=== PATIENT | male | born 1935 | race Caucasian/White ===

== ENCOUNTER 2018-12-14 15:13 | Inpatient (IN) | payer BC ==
--- NOTE | 2018-12-14 16:27 | PDOC ---
Attending Attestation - HPI HPI: 12/14/18 17:33 The patient is a 83 year old male with a significant PMH of HTN, CAD s/p stent, HLD, prostate problem (unknown) who presents to the emergency department sent in by his PCP for abnormal blood work. Patient was seen by PCP today for generalized weakness and was told to come to the ER for acute renal failure and hyperkalemia. Patient has not been eating and drinking at home and has lost 10lbs since August. Patient has not been taking his meds at home. The patient denies chest pain, shortness of breath, headache and dizziness. Denies fever, chills, nausea, vomit, diarrhea and constipation. Denies dysuria, frequency, urgency and hematuria. Allergies: NKA Past surgical history: None reported. Social history: No reported alcohol, drug or cigarette use. PCP: Dr. Herrmann - Physicial Exam PE: 12/14/18 17:33 ADULT PHYSICAL EXAM Constitutional: Awake and alert. (+) Disheveled. Cardiovascular: (+) Bradycardic. Regular rhythm. S1, S2 regular. Distal pulses are 2+ and symmetric. Pulmonary/Chest: No evidence of respiratory distress. Clear to auscultation bilaterally No wheezing, rales or rhonchi. Abdominal: Soft and non-distended. There is no tenderness. No rebound, guarding or rigidity. No organomegaly. No palpable masses. Good bowel sounds. Back: No CVA tenderness. Musculoskeletal: (+) Bilateral lower extremities with trace edema. No cyanosis. No clubbing. Full range of motion in all extremities. No calf tenderness. Radial/pedal pulses are intact and 2+ bilaterally Skin: Skin is warm and dry. No petechiae. No purpura. Neurological: Alert and oriented to person, place, and time. Cranial nerves II -XII are grossly intact. Psychiatric: Good eye contact. Normal interaction, affect and behavior. <Roxy Morales - Last Filed: 12/14/18 17:33> - Resident Resident Name: Cintia Dior - ED Attending Attestation I have performed the following: I have examined & evaluated the patient, The case was reviewed & discussed with the resident, I agree w/resident's findings & plan, Exceptions are as noted - Critical Care Time Total Critical Care Time: 45 Critical Care Statement: The care of this patient involved high complexity decision making to prevent further life threatening deterioration of the patient 's condition and/or to evaluate & treat vital organ system(s) failure or risk of failure. - Medical Decision Making 12/14/18 16:27 I, Dr. Clara Moreland, DO, attest that this document has been prepared under my direction and personally reviewed by me in its entirety. I further attest, that it accurately reflects all work, treatment, procedures and medical decision -making performed by me. 12/14/18 18:15 a/p: 83yo male presents with his daughter for eval of outpt labs that show hyperkalemia and renal failure -pt with decreased po intake and noncompliance with meds -pt arrives hypotensive, bradycardic -ekg shows signs of hyperkalemia -will treat empirically for hyperkalemia -will start ivf hydration -will place smith for eval of I/O -will need admission -PMD is Dr. Wynne 12/14/18 18:47 pt with K 6.5 will give another amp bicarb and calcium gluc bun 118, Cr 4.[address] Jackson who recommends repeat labs at 8p and bicarb gtt at 100cc/hr smith in place and draining urine 12/14/18 19:08 pt again hypotensive and gordy - another bicarb and clacium given 12/14/18 19:09 code status and potential dialysis were discussed with the patient and his daughter - both agree to dialysis if needed and state pt is a full code 12/14/18 20:48 case discussed with ICU resident case idscussed with Dr. Fagan who accepts pt to service 12/14/18 21:19 repeat labs at midnight and am labs <Clara Moreland - Last Filed: 12/14/18 21:20> Heart Score/ECG Review - ECG Intrepretation Comment:: 12/14/18 18:17 sinus gordy at 55, nl axis, peaked t waves, abnl ekg 12/14/18 19:40 repeat ekg: sinus at 72, nl axis, nl interval, t wave inversion avl, improved from prior <Clara Moreland - Last Filed: 12/14/18 21:20>
--- NOTE | 2018-12-14 17:22 | PDOC ---
History of Present Illness - General Chief Complaint: Revisit, Lab Variance Stated Complaint: ABD RESULTS Time Seen by Provider: 12/14/18 16:26 - History of Present Illness Initial Comments: Henrry Alcocer is an 83yo man with a PMH of HTN, CAD s/p stent, HLD, unknown prostate problem who presents with report of "high potassium and kidney failure " from his PMD. He has mild dementia, but he lives with his daughter and she is present at bedside. Per his daughter, she took him to the PMD because he hasn't been eating well for weeks to months. She states that he has lost about 10lb since a check-up in August. Due to the poor PO intake, his doctor recommended that he take only his "heart and prostate medications" but forgo the furosemide and potassium supplement. She reports that he has been drinking "a lot of soda" but eating very little. He had basic labs drawn at his PMD, and she received a call today that his potassium was very high and has kidney failure. He has no known history of kidney problems that she knows of. Mr Alcocer reports that he has simply not been hungry, but he denies abdominal pain, nausea, vomiting, fevers, chills, or change in bowel habits. He says that he has been urinating normally. Per his daughter, he has vomited several times that she knows about over the past several weeks, but this does not occur often. Past History - Past Medical History Allergies/Adverse Reactions: Allergies Allergy/AdvReac Type Severity Reaction Status Date / Time No Known Allergies Allergy Verified 05/17/15 11:01 Home Medications: Ambulatory Orders Cholecalciferol (Vitamin D3) [Vitamin D3] 1,000 unit PO DAILY 05/17/15 Metoprolol Tartrate [Lopressor -] 25 mg PO BID 05/17/15 Quinapril HCl [Accupril -] 20 mg PO DAILY 05/17/15 Simvastatin 10 mg PO DAILY 05/17/15 Terazosin HCl 5 mg PO DAILY 05/17/15 Furosemide [Lasix -] 20 mg PO DAILY 12/14/18 Potassium Bicarbonate/Cit AC [Potassium 25 Meq Tablet Eff] 25 meq PO DAILY 12/14 Cardiac Disorders: Yes (STENT PLACEMENT) Disorders: Yes (Bladder stones) HTN: Yes - Surgical History Cardiac Surgery: Yes (STENT PLACEMENT) - Family Disease History Family Disease History: Heart Disease: Father, Brother - Suicide/Smoking/Psychosocial Hx Smoking Status: No Smoking History: Never smoked Have you smoked in the past 12 months: No Number of Cigarettes Smoked Daily: 0 Information on smoking cessation initiated: No Hx Alcohol Use: No Drug/Substance Use Hx: No Substance Use Type: Alcohol Hx Substance Use Treatment: No Review of Systems - Review of Systems Comments:: Note: patient denies all symptoms but has dementia. Positive ROS items are per his adult daughter, with whom he lives. General: No fevers, no chills, +poor appetite, +weight loss, no malaise HEENT: No changes in vision, no changes in hearing, no congestion, no sore throat CV: No chest pain, no palpitations, no LE edema Pulm: No SOB, no cough, no wheezing GI: +occasional vomiting. No (known) change in bowel habits, no melena : No frequency, no urgency, no dysuria Musc: No back pain, no joint swelling, no recent injury Skin: No rash, no lesions, no erythema Endo: No excessive thirst, no heat/cold intolerance Heme: No unusual bruising or bleeding, no swollen glands Neuro: No syncope, no numbness/tingling, no focal weakness. +dementia Vasc: No claudication Psych: No recent change in mood, no SI or HI *Physical Exam - Vital Signs Last Vital Signs Temp Pulse Resp BP Pulse Ox 97.3 F L 73 20 89/52 L 98 12/14/18 15:21 12/14/18 15:21 12/14/18 15:21 12/14/18 15:21 12/14/18 15:21 - Physical Exam Comments: General: Comfortable, no acute distress, somewhat unkempt with dirty clothing HEENT: PERRL, EOMI, MMM, voice normal, normal neck ROM, no LAD Cards: RRR, no murmur appreciated Pulm: Comfortable on room air, clear to auscultation bilaterally Abd: Soft, nontender, nondistended : No CVA tenderness Ext: Atraumatic. 1+ nonpitting b/l swelling. Strength equal bilaterally. Vasc: Extremities WWP. Integ: Normal color, no rashes or lesions. +onychomycosis on b/l feet, untrimmed nails Neuro: Alert, responsive, CN grossly intact, normal speech, motor/sensory grossly intact and symmetric Psych: Mood appropriate to situation Moderate Sedation - Procedure Monitoring Vital Signs: Procedure Monitoring Vital Signs Temperature 97.3 F L 12/14/18 15:21 Pulse Rate 73 12/14/18 15:21 Respiratory Rate 20 12/14/18 15:21 Blood Pressure 89/52 L 12/14/18 15:21 O2 Sat by Pulse Oximetry (%) 98 12/14/18 15:21 ED Treatment Course - LABORATORY CBC & Chemistry Diagram: 12/14/18 16:50 12/14/18 20:00 Medical Decision Making - Medical Decision Making 12/14/18 17:13 Henrry Alcocer is an 83yo man with a PMH of HTN, CAD s/p stent, HLD, prostate problem (unknown) who was sent to the ED by his PMD for kidney failure and hyperkalemia. Per his daughter, he has not been eating well for weeks and has lost 10lb since August. She states that he went to his PMD for blood tests recently, and they were called stating that his creatinine and potassium were high. - Medication list includes potassium supplement and furosemide; unclear whether he has taking either - Noted to be hypotensive and bradycardic on arrival. Could be secondary to meds (metoprolol, ACEI, furosemide) and poor PO intake or secondary to other medical cause - EKG completed; shows peaked t-waves - 2 PIV's placed by me and Dr Moreland. 20g on b/l forearms. Labs drawn and sent - CBC, chemistry, lactate, VBG, coags, TSH, UA 12/14/18 18:15 - VBG with pH 7.22, bicarb 10.7, CO2 27.4 - presumed due to kidney failure - Calcium gluconate, bicarb, insulin, dextrose given for hyperkalemia based on EKG changes. Immediate improvement in BP and HR to SBP 150, HR in 70's - Smith placed with no urine returned. Bedside US with good visualization of L kidney w/o abnormalities. Poorly visualized R kidney without obvious hydro. Bladder with smith balloon visualized in place. Approx 300cc urine in bladder. Smith flushed with immediate output of urine. 12/14/18 19:14 - Chemistry with potassium 6.5, BUN 118, Cr 4.6 - Dr Jackson contacted, spoke to Dr Moreland. Recommending bicarb drip, repeat labs at 8pm (4hrs after initial). Dispo depending on repeat labs, floor v ICU - BP decreased to 74/43. Repeat doses of Ca gluconate and bicarb with improvement to 117/66 - Discussed DNR status and possible dialysis while daughter was present in the ED. Mr Alcocer wishes to be full code and verbally consents to possible need for dialysis. Will contact daughter via phone if official consent is needed. 12/14/18 19:48 - BP decreased again to 74/42, HR 58. Calcium gluconate given for a 3rd time. Immediate increase to BP 89/43. HR still in high 50's 12/14/18 20:52 - ICU called, spoke to Dr Moreland. Will come to evaluate, most likely admit to ICU - Labs drawn and sent. Repeat VBG with slight improvement, pH 7.29 and bicarb 14 - UA unremarkable 12/14/18 21:14 - Potassium decreased to 5.1 after medical management. Cr 4.1. BUN pending - Glucose 50. Giving dextrose - Spoke to medicine team (Dr Cancino). Will admit, agree with ICU - Dr Jackson by Dr Moreland. Recommending q6hr labs (midnight and 6). Updated ICU team by phone. Discussed with Dr Moreland. Cintia Dior PGy1 *DC/Admit/Observation/Transfer Diagnosis at time of Disposition: Hyperkalemia, Acute kidney failure, Hypotension, Bradycardia - Discharge Dispostion Decision to Admit order: Yes - Referrals Referrals: Vu Herrmann MD [Primary Care Provider] - - Patient Instructions - Post Discharge Activity
[2018-12-14 17:24] LABS: VENOUS PC02 27.4 mmHg (38-52)
[2018-12-14 17:25] LABS: EOS % 3.6 % (0-4.5); HEMATOCRIT 27.9 % (35.4-49); HEMOGLOBIN 9.6 GM/dL (11.7-16.9); LYMPH % 17.1 % (8-40); MCH 32.9 pg (25.7-33.7); MCHC 34.5 g/dl (32.0-35.9); MEAN CELL VOLUME 95.3 fl (80-96); MEAN PLT VOLUME 9.9 fl (7.5-11.1); NEUT % 69.3 % (42.8-82.8); PLATELET COUNT 119 K/MM3 (134-434); RBC 2.92 M/mm3 (4.00-5.60); RDW 14.8 % (11.9-15.9); WHITE BLOOD COUNT 4.6 K/mm3 (4.0-10.0)
[2018-12-14 17:26] LABS: VENOUS PH 7.22 (7.32-7.42); VENOUS PO2 89.8 mmHg (28-48)
[2018-12-14] MEDS ORDERED: DEXTROSE 50%-WATER - 25 GM/50 ML VIAL IVPUSH ONE ×2 (17:30→21:37)
[2018-12-14] MEDS ORDERED: SODIUM BICARBONATE 8.4% 50 MEQ/50 ML DISP.SYRIN IVPUSH ONE ×3 (17:30→20:28)
[2018-12-14] MEDS ORDERED: SODIUM CHLORIDE 0.9% 1000 ML INFUS.BAG IV ONE ×3 (17:30→21:18)
[2018-12-14] MEDS ORDERED: CALCIUM GLUCONATE 10% - 1,000 MG/10 ML VIAL IVPUSH ONE ×3 (17:30→18:54)
[2018-12-14] MEDS ORDERED: INSULIN REGULAR HUMAN 100 UNITS/ML *VIAL IVPUSH ONE (17:30)
[2018-12-14] MEDS ORDERED: CALCIUM GLUCONATE 10% - 1,000 MG/10 ML VIAL ONE ×3 (17:32→18:54)
[2018-12-14] MEDS ORDERED: SODIUM BICARBONATE 8.4% - 50 ML ONE ×2 (17:35→18:47)
[2018-12-14] MEDS ORDERED: DEXTROSE 50%-WATER 25 GM/50 ML DISP.SYRIN ONE ×2 (17:35→21:16)
[2018-12-14] MEDS ORDERED: INSULIN REGULAR HUMAN 100 UNITS/ML *VIAL ONE (17:36)
[2018-12-14 17:43] LABS: INR 0.99 (0.83-1.09); PROTHROMBIN TIME (PATIENT) 11.7 SEC (9.7-13.0)
[2018-12-14 17:45] LABS: ACTIVATED PTT 26.5 SECONDS (25.2-36.5)
[2018-12-14 18:19] LABS: ALBUMIN 3.6 g/dl (3.4-5.0); ALK PHOS 70 U/L (45-117); ANION GAP 7 MMOL/L (8-16); BILIRUBIN,TOTAL 0.4 mg/dL (0.2-1); CALCIUM 8.9 mg/dL (8.5-10.1); CHLORIDE 118 mmol/L (98-107); CO2 14 mmol/L (21-32); CREATININE 4.6 mg/dL (0.55-1.3); GLUCOSE,RANDOM 94 mg/dL (74-106); MAGNESIUM 2.1 mg/dL (1.8-2.4); SGOT/AST 14 U/L (15-37); SGPT/ALT 22 U/L (13-61); SODIUM 139 mmol/L (136-145); TOT PROT 6.5 g/dl (6.4-8.2)
[2018-12-14 18:31] LABS: BLOOD UREA NITROGEN 118 mg/dL (7-18); POTASSIUM 6.5 mmol/L (3.5-5.1)
[2018-12-14] MEDS ORDERED: SODIUM POLYSTYRENE SULFONATE 15 GM/60 ML BOTTLE PO ONE (18:39)
[2018-12-14] MEDS ORDERED: DEXTROSE 5%-WATER - 1,000 ML with SODIUM BICARBONATE 8.4% - 150 MEQ IV SCH ×2 (18:45)
[2018-12-14] MEDS ORDERED: SODIUM BICARBONATE 8.4% - 150 MEQ in DEXTROSE 5%-WATER - 1,000 ML IV SCH (18:48)
[2018-12-14 19:30] LABS: URINE APPEARANCE SLCLOUDY; URINE BILIRUBIN NEGATIVE (<2.0 mg/dL); URINE COLOR LTYELLOW; URINE GLUCOSE (UA) NEGATIVE (NEGATIVE); URINE KETONE NEGATIVE (NEGATIVE); URINE LEUK ESTERASE NEGATIVE (NEGATIVE); URINE NITRITE NEGATIVE (NEGATIVE); URINE PROTEIN NEGATIVE (NEGATIVE); URINE UROBILINOGEN NEGATIVE mg/dL (0.2-1.0)
[2018-12-14 20:41] LABS: VENOUS PC02 30.4 mmHg (38-52); VENOUS PH 7.29 (7.32-7.42); VENOUS PO2 38.6 mmHg (28-48)
[2018-12-14 21:10] LABS: ALK PHOS 58 U/L (45-117); ANION GAP 7 MMOL/L (8-16); BILIRUBIN,TOTAL 0.4 mg/dL (0.2-1); CHLORIDE 120 mmol/L (98-107); CO2 17 mmol/L (21-32); CREATININE 4.1 mg/dL (0.55-1.3); GLUCOSE,RANDOM 57 mg/dL (74-106); POTASSIUM 5.1 mmol/L (3.5-5.1); SGOT/AST 12 U/L (15-37); SGPT/ALT 17 U/L (13-61); SODIUM 144 mmol/L (136-145); TOT PROT 5.3 g/dl (6.4-8.2)
[2018-12-14] MEDS ORDERED: DEXTROSE 50%-WATER - 25 GM/50 ML VIAL ONE (21:16)
[2018-12-14 22:28] LABS: BLOOD UREA NITROGEN 107 mg/dL (7-18)
--- NOTE | 2018-12-14 23:42 | CONSULT ---
Consult Consult Specialty:: ICU Referred by:: Barby Reason for Consultation:: hyperkalemia, Hypotension - History of Present Illness Chief Complaint: hyperkalemia History of Present Illness: history obtained from daughter and patient. 83 yr old man with hx of dementia, renal insufficiency, BPH, brought in by daughter after outpatient labs showed hyperkalemia and worsening renal insuffiency. as per daughter, pt has been sleeping more than usual with poor po intake since middle november that has progressively worsened this week. She had an appointment with Dr. Herrmann to c/o vomiting several episodes this week. She stopped the "water pill" and potassium supplementation daily, and started to give it to him only on the days he ate and showed improved appetite. She continued to give him his "heart, cholesterol and prostate" medications. he has a chronic nonproductive cough and has been sitting in the toilet for longer periods of time but she does not know if it's diarrhea or constipation. she denies any complaints of chest pain, palpiations, abdominal pain, lightheadedness, unsteady gait, sob, nausea. as per patient he was brought to the hospital due to his 1 episode of vomiting 3 days ago that consisted of food, currently c/o feeling cold. she has noticed a loss of 10lbs since august and that he drinks alot of soda. Pmhx: HTN, stents in the heart unknown when it was placed, no hx of LA/CVA Surghx: hernia repairs >10yrs ago Soc hx: smoked cigars quit >20yrs, denies ETOH and illicit drugs Allergies: no NKDA - History Source History Provided By: Patient, Family Member, Medical Record Limitations to Obtaining History: Dementia - Past Medical History LEGAL RECEPTIONIST: Yes: Dementia Cardio/Vascular: Yes: HTN, Hyperlipdemia Renal/: Yes: Renal Inusuff, Hematuria, Renal Calculi, UTI - Past Surgical History Past Surgical History: Yes: Hernia Repair - Alcohol/Substance Use Hx Alcohol Use: No - Smoking History Smoking history: Never smoked Have you smoked in the past 12 months: No Aproximately how many cigarettes per day: 0 - Social History 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 Home Medications - Allergies Allergies/Adverse Reactions: Allergies Allergy/AdvReac Type Severity Reaction Status Date / Time No Known Allergies Allergy Verified 05/17/15 11:01 - Home Medications Home Medications: Ambulatory Orders Cholecalciferol (Vitamin D3) [Vitamin D3] 1,000 unit PO DAILY 05/17/15 Metoprolol Tartrate [Lopressor -] 25 mg PO BID 05/17/15 Quinapril HCl [Accupril -] 20 mg PO DAILY 05/17/15 Simvastatin 10 mg PO DAILY 05/17/15 Terazosin HCl 5 mg PO DAILY 05/17/15 Furosemide [Lasix -] 20 mg PO DAILY 12/14/18 Potassium Bicarbonate/Cit AC [Potassium 25 Meq Tablet Eff] 25 meq PO DAILY 12/14 Family Disease History - Family Disease History Family Disease History: Other: Brother ( but pt does not know the cause) Review of Systems Findings/Remarks: as per daughter and patient - Review of Systems Constitutional: reports: Chills, Loss of Appetite, Unintentional Wgt. Loss, Weakness. denies: Fever, Lethargy Gastrointestinal: reports: Vomiting. denies: Vomiting Blood Musculoskeletal: reports: No Symptoms Integumentary: reports: No Symptoms Physical Exam Vital Signs: Vital Signs Temperature 97.8 F 12/14/18 19:21 Pulse Rate 62 12/14/18 22:41 Respiratory Rate 18 12/14/18 22:41 Blood Pressure 102/49 L 12/14/18 22:41 O2 Sat by Pulse Oximetry (%) 95 12/14/18 22:41 Constitutional: Yes: Poor Hygeine, Thin Eyes: Yes: Conjunctiva Clear, EOM Intact, PERRL HENT: Yes: Atraumatic, Normocephalic. No: Pharyngeal Erythema, Rhinnorhea, Thrush Neck: Yes: Supple, Trachea Midline, Decreased ROM. No: Tenderness, Thyromegaly Cardiovascular: Yes: Regular Rate and Rhythm, Murmur Respiratory: Yes: Regular, CTA Bilaterally Gastrointestinal: Yes: Normal Bowel Sounds, Soft Edema: No Peripheral Pulses WNL: Yes Integumentary: Yes: WNL Neurological: Yes: Alert, Oriented (to person and place, president and date), Cran Nerves II-XII Intact ...Motor Strength: WNL Labs: CBC, BMP 12/14/18 16:50 12/14/18 20:00 Assessment/Plan 83 yr old man with HTN, CAD, BPH, renal insufficiency with weightloss and poor appetite brought in by family for abnormal outpatient labs found to have hyperkalemia and renal insufficiency being monitored in the ICU for bradycardia and hypotension s/p medical management of hyperkalemia and on bicarb drip. all likely due to poor po intake with vomiting and continuation of medications. Renal RADHA on CKD- consulted dr. contreras - repeat BMP q6hr to trend - bicarb drip - renal u/s without acute pathology CV - BP stable in the ICU, s/p 1 500cc bolus, responded well - hold anti-HTNive medications - HR improved in ICU, was gordy down to 38's in the ED - trop x1 negative Heme - microcytic anemia - anemia labs ordered VTE - heparin BID
--- NOTE | 2018-12-14 23:45 | HP ---
CHIEF COMPLAINT: Sent by [facility] for high potassium and renal failure PCP: Dr. Herrmann HISTORY OF PRESENT ILLNESS: The patient is an 83 yo m w/ PMH HTN, CAD s/p stent, HLD, dementia who was sent to the ED by his PMD because he had an elevated creatinine and potassium on his routine lab work. The patient's daughter took him to his PMD because he has not been eating as much over the past month as well as had a 10 lb weight loss over this past month. The patient's PMD instructed him to discontinue taking his "heart pills" because he was not eating or drinking. The patient's daughter is unsure of which one of his pills this was. The patient was then called by his PMD after his labs came back abnormal and instructed to come to the ED. Upon interview, the patient is A&Ox3, but unsure of why he is at the hospital and has no complaints. Per patient's daughter, this is his baseline mental status. Per ED staff, the patient was dirty, disheveled with soiled clothes and malodorous. ER course was notable for: (1) Potassium 6.5, BUN 18, cr. 4.6 (2) EKG w/ peaking of t waves (3) Recent Travel: none PAST MEDICAL HISTORY: see HPI PAST SURGICAL HISTORY: cardiac stenting Social History: Smoking: denies Alcohol: denies Drugs: denies Family History: Allergies No Known Allergies Allergy (Verified 05/17/15 11:01) HOME MEDICATIONS: Home Medications Medication Instructions Recorded Cholecalciferol (Vitamin D3) 1,000 unit PO DAILY 05/17/15 [Vitamin D3] Metoprolol Tartrate [Lopressor -] 25 mg PO BID 05/17/15 Quinapril HCl [Accupril -] 20 mg PO DAILY 05/17/15 Simvastatin 10 mg PO DAILY 05/17/15 Terazosin HCl 5 mg PO DAILY 05/17/15 Furosemide [Lasix -] 20 mg PO DAILY 12/14/18 Potassium Bicarbonate/Cit AC 25 meq PO DAILY 12/14/18 [Potassium 25 Meq Tablet Eff] REVIEW OF SYSTEMS CONSTITUTIONAL: Absent: fever, chills, diaphoresis, generalized weakness, malaise, loss of appetite, weight change HEENT: Absent: rhinorrhea, nasal congestion, throat pain, throat swelling, difficulty swallowing, mouth swelling, ear pain, eye pain, visual changes CARDIOVASCULAR: Absent: chest pain, syncope, palpitations, irregular heart rate, lightheadedness , peripheral edema RESPIRATORY: Absent: cough, shortness of breath, dyspnea with exertion, orthopnea, wheezing, stridor, hemoptysis GASTROINTESTINAL: Absent: abdominal pain, abdominal distension, nausea, vomiting, diarrhea, constipation, melena, hematochezia GENITOURINARY: Absent: dysuria, frequency, urgency, hesitancy, hematuria, flank pain, genital pain MUSCULOSKELETAL: Absent: myalgia, arthralgia, joint swelling, back pain, neck pain SKIN: Absent: rash, itching, pallor HEMATOLOGIC/IMMUNOLOGIC: Absent: easy bleeding, easy bruising, lymphadenopathy, frequent infections ENDOCRINE: Absent: unexplained weight gain, unexplained weight loss, heat intolerance, cold intolerance NEUROLOGIC: Absent: headache, focal weakness or paresthesias, dizziness, unsteady gait, seizure, mental status changes, bladder or bowel incontinence PSYCHIATRIC: Absent: anxiety, depression, suicidal or homicidal ideation, hallucinations. PHYSICAL EXAMINATION Vital Signs - 24 hr 12/14/18 12/14/18 12/14/18 15:21 18:01 19:21 Temperature 97.3 F L 98.0 F 97.8 F Pulse Rate 73 Pulse Rate [ 71 72 Left Apical] Respiratory 20 16 20 Rate Blood Pressure 89/52 L Blood Pressure 151/74 117/66 [Left Arm] O2 Sat by Pulse 98 100 97 Oximetry (%) 12/14/18 12/14/18 19:40 22:41 Temperature Pulse Rate Pulse Rate [ 95 H 62 Left Apical] Respiratory 20 18 Rate Blood Pressure Blood Pressure 102/56 L 102/49 L [Left Arm] O2 Sat by Pulse 97 95 Oximetry (%) GENERAL: Awake, alert, and fully oriented, in no acute distress. HEAD: Normal with no signs of trauma. EYES: Pupils equal, round and reactive to light, extraocular movements intact, sclera anicteric, conjunctiva clear. No lid lag. NECK: Normal range of motion, supple without lymphadenopathy, JVD, or masses. LUNGS: Breath sounds equal, clear to auscultation bilaterally. No wheezes, and no crackles. No accessory muscle use. HEART: Regular rate and rhythm, normal S1 and S2 without murmur, rub or gallop. ABDOMEN: Soft, nontender, not distended, normoactive bowel sounds, no guarding, no rebound, no masses. No hepatomegaly or splenomegaly. LOWER EXTREMITIES: 2+ pulses, warm, well-perfused. No calf tenderness. No peripheral edema. NEUROLOGICAL: Cranial nerves II-X intact. Normal speech. SKIN: Warm, dry, normal turgor, no rashes or lesions noted, normal capillary refill. Laboratory Results - last 24 hr 12/14/18 12/14/18 12/14/18 14:45 16:45 16:50 WBC 4.6 RBC 2.92 L Hgb 9.6 L Hct 27.9 L D MCV 95.3 MCH 32.9 MCHC 34.5 RDW 14.8 Plt Count 119 L MPV 9.9 Absolute Neuts (auto) 3.2 Neutrophils % 69.3 Lymphocytes % 17.1 Monocytes % 9.0 Eosinophils % 3.6 Basophils % 1.0 Nucleated RBC % 0 PT with INR 11.70 INR 0.99 PTT (Actin FS) 26.5 VBG pH 7.22 L* POC VBG pCO2 27.4 L POC VBG pO2 89.8 H Mixed VBG HCO3 10.7 L* Sodium Potassium Chloride Carbon Dioxide Anion Gap BUN Creatinine Creat Clearance w eGFR POC Glucometer Random Glucose Lactic Acid Calcium Magnesium Total Bilirubin AST ALT Alkaline Phosphatase Creatine Kinase Creatine Kinase Index CK-MB (CK-2) Troponin I Total Protein Albumin TSH Urine Color Urine Appearance Urine pH Ur Specific [place] Urine Protein Urine Glucose (UA) Urine Ketones Urine Blood Urine Nitrite Urine Bilirubin Urine Urobilinogen Ur Leukocyte Esterase 12/14/18 12/14/18 12/14/18 16:50 16:50 17:23 WBC RBC Hgb Hct MCV MCH MCHC RDW Plt Count MPV Absolute Neuts (auto) Neutrophils % Lymphocytes % Monocytes % Eosinophils % Basophils % Nucleated RBC % PT with INR INR PTT (Actin FS) VBG pH POC VBG pCO2 POC VBG pO2 Mixed VBG HCO3 Sodium 139 Potassium 6.5 H* Chloride 118 H Carbon Dioxide 14 L Anion Gap 7 L BUN 118 H* Creatinine 4.6 H Creat Clearance w eGFR 12.23 POC Glucometer Random Glucose 94 Lactic Acid 0.9 Calcium 8.9 Magnesium 2.1 Total Bilirubin 0.4 AST 14 L ALT 22 Alkaline Phosphatase 70 Creatine Kinase 160 Creatine Kinase Index 3.4 CK-MB (CK-2) 5.44 H Troponin I 0.02 Total Protein 6.5 Albumin 3.6 TSH 1.07 Urine Color Urine Appearance Urine pH Ur Specific [place] Urine Protein Urine Glucose (UA) Urine Ketones Urine Blood Urine Nitrite Urine Bilirubin Urine Urobilinogen Ur Leukocyte Esterase 12/14/18 12/14/18 12/14/18 17:39 18:56 20:00 WBC RBC Hgb Hct MCV MCH MCHC RDW Plt Count MPV Absolute Neuts (auto) Neutrophils % Lymphocytes % Monocytes % Eosinophils % Basophils % Nucleated RBC % PT with INR INR PTT (Actin FS) VBG pH 7.29 L POC VBG pCO2 30.4 L POC VBG pO2 38.6 D Mixed VBG HCO3 14.2 L* Sodium Potassium Chloride Carbon Dioxide Anion Gap BUN Creatinine Creat Clearance w eGFR POC Glucometer 93 Random Glucose Lactic Acid Calcium Magnesium Total Bilirubin AST ALT Alkaline Phosphatase Creatine Kinase Creatine Kinase Index CK-MB (CK-2) Troponin I Total Protein Albumin TSH Urine Color Ltyellow Urine Appearance Slcloudy Urine pH 5.0 Ur Specific [place] 1.011 Urine Protein Negative Urine Glucose (UA) Negative Urine Ketones Negative Urine Blood Negative Urine Nitrite Negative Urine Bilirubin Negative Urine Urobilinogen Negative Ur Leukocyte Esterase Negative 12/14/18 20:00 WBC RBC Hgb Hct MCV MCH MCHC RDW Plt Count MPV Absolute Neuts (auto) Neutrophils % Lymphocytes % Monocytes % Eosinophils % Basophils % Nucleated RBC % PT with INR INR PTT (Actin FS) VBG pH POC VBG pCO2 POC VBG pO2 Mixed VBG HCO3 Sodium 144 Potassium 5.1 Chloride 120 H Carbon Dioxide 17 L Anion Gap 7 L BUN 107 H* Creatinine 4.1 H Creat Clearance w eGFR 13.97 POC Glucometer Random Glucose 57 L Lactic Acid Calcium 9.0 Magnesium Total Bilirubin 0.4 AST 12 L ALT 17 Alkaline Phosphatase 58 Creatine Kinase Creatine Kinase Index CK-MB (CK-2) Troponin I Total Protein 5.3 L Albumin 3.0 L TSH Urine Color Urine Appearance Urine pH Ur Specific [place] Urine Protein Urine Glucose (UA) Urine Ketones Urine Blood Urine Nitrite Urine Bilirubin Urine Urobilinogen Ur Leukocyte Esterase ASSESSMENT/PLAN: The patient is an 83 yo m w/ PMH HTN, HLD, CAD s/p stenting who was sent ot he ed by PMD found to have acute renal failure and symptomatic hyperkalemia. #Hyperkalemia and ARF likely 2/2 combination of medications confusion and decreased PO intake -patient likely taking potassium supplements and ACEI without being diuresed and without eating/drinking -s/p calcium gluconate, 10 units insulin IV and D50 x2 in ED -RPT K 5.1 -EKG chages seen on admission -Nephrology called by ED staff (Dr. Jackson); no urgent dialysis indicated. Recommends bmp w/ mag and phos Q6h overnight. -holding nephrotoxic medications #inability to ambulate -patient has difficulty ambulating, has been using a wheelchair recently -PT consult in AM #Patient appeared soiled, dirty on arrival per ED staff -patient has no decubiti, making abuse less likely -social work consult -patient may require higher level of care on discharge #HTN, CAD, HLD -holding home medications overnight #Prophy -heparin SQ 5k units TID #Dispo -admit ICU -home medications verified by ED staff with patient's daughter (pharmacy receipts reviewed) Visit type - Emergency Visit Emergency Visit: Yes ED Registration Date: 12/14/18 Care time: The patient presented to the Emergency Department on the above date and was hospitalized for further evaluation of their emergent condition. - New Patient This patient is new to me today: Yes Date on this admission: 12/15/18 - Critical Care Critical Care patient: No
[2018-12-15 01:19] LABS: ALBUMIN 2.6 g/dl (3.4-5.0); ALK PHOS 58 U/L (45-117); ANION GAP 7 MMOL/L (8-16); BILIRUBIN,TOTAL 0.4 mg/dL (0.2-1); BLOOD UREA NITROGEN 100 mg/dL (7-18); CALCIUM 8.3 mg/dL (8.5-10.1); CHLORIDE 118 mmol/L (98-107); CO2 18 mmol/L (21-32); CREATININE 3.8 mg/dL (0.55-1.3); GLUCOSE,RANDOM 102 mg/dL (74-106); MAGNESIUM 1.8 mg/dL (1.8-2.4); PHOSPHOROUS 3.8 mg/dL (2.5-4.9); POTASSIUM 4.9 mmol/L (3.5-5.1); SGOT/AST 13 U/L (15-37); SGPT/ALT 19 U/L (13-61); SODIUM 143 mmol/L (136-145); TOT PROT 5.1 g/dl (6.4-8.2)
--- NOTE | 2018-12-15 01:33 | PN ---
Teaching Attending Note Name of Resident: Mik Cancino ATTENDING PHYSICIAN STATEMENT I saw and evaluated the patient. I reviewed the resident's note and discussed the case with the resident. I agree with the resident's findings and plan as documented. SUBJECTIVE: Seen and examined; please see resident note for further historical documentation. Briefly, this is a 83 y/o male with a PMH significant for history of CAD s/p PCI (unknown date), HTN, Dementia, former Smoker, HLD, HLD. He presents with his family for concerns of severe issues with his outpatient labs (showed hyperkalemia, RADHA). He actually denies any pain or complaints when I see him; his family was unfortunately gone at that point. He is a poor historian but was AAOx3. He has had very poor PO intake for the past month or so and has reported ~10lb weight loss since july. He is on multiple nephrotoxic medications; family aparently told ER/resident team that he has not been on the Lasix per orders from his PCP but that he has been taking all the other ones. He was found to be acidotic and have marked hyperkalemia with EKG changes; he was given insulin/D50, multiple pushes of bicarb and calcium, etc. ( as documented in ER notes) and was eventually found to have improved K in the 5- range with slightly improved pH. Nephrology was contacted by the ER and stated that he would likely not need STAT HD due to this but recommended monitoring him very closely overnight. He will be brought to the ICU due to his fluctuating hypotension as well as his flucturating HR (became gordy and hypotensive in the ER several times). Appreciate subspecialty expert opinion in the management of this patient. 10 sys ROS done and negative aside from HPI PMH and PSH reviewed Medication list pending reconciliation OBJECTIVE: VS, labs, imaging reviewed NAD, AAO but confused on some personal details, resting in bed RRR s1/2 no mgr Lungs CTAB, w/ sym exp NT ND +BS CN2-12 wnl, no fnd Normal mood, appropriate behavior, confusion evident with slow responses and blunted affect Labs show initial K of .5 that improved to 4.9; Cr 4.6 and now 3.8. CO2 was 14 that improved to 18, and his albumin and total protein are both low. UA is negative for infection, VBG showed a metabolic acidosis that did improve, and finally anemia and thrombocytopenia are noted on CBC (Hb 9.6, plt 119) Renal US shows no hydronephrosis without any definite sonographic abnormality with the kidneys. Did incidentally show prostate enlargement. ASSESSMENT AND PLAN: Patient presents with acute renal failure and hyperkalemia; renal function and elytes improving. He was transiently bradycardic and hypotensive so he was admitted to the ICU for further workup and monitoring. 1) Acute Renal Failure -Nephrology is aware of the patient; appreciate their expert management and will defer further workup and treatment to their service. -Likely prompted by poor PO and nephrotoxic medications, etc. Consider an element of ATN as a possibility given the hypotension observed in the ER. Followup FeUrea. MARGARITA noted (patient has a h/o nephrolithiasis but there was no obstruction noted presently; Dr. Braun DCS from 2014 mentions chronic obstruction contributing to renal disease 4 years ago). -Monitor BMP, hydrating with NS. Monitor UOP. 2) Hyperkalemia -Resolved back to normal range with treatment; continue with hydration with NS and trending BMP. EKG/tele noted. Renal diet. 3) Metabolic Acidosis -Improving; due to the underlying renal failure. 4) Sinus Bradycardia/Hypotension, resolved -Resolved with treatment of the hypokalemia. Less likely due to BB. Monitor in ICU overnight 5) Normocytic Anemia -New; baseline of 12 in 2015. Will trend CBC; compare to OP records. If this is new it should be worked up. 6) Thrombocytopenia -Chronic; was low in 2015 with steady decline of his platelet count. Unclear etiology. Can check Hep C Ab and HIV; consider other etiologies like RASHID, etc. 7) Enlarged prostate -Noted on imaging; followup OP with PCP 8) CAD s/p stenting -Nonacute; followup as OP. 9) HTN -Holding nephrotoxic agents and monitoring. Avoid further hypotension which could precipitate ATN. If >160 can use PRN hydralazine 10) Dementia -He seems slightly confused but is AAOx3 in the unit but slow to respond. Could be baseline vs. uremia. Tx underlying RADHA. Discuss his mentation with the family tomorrow. Fall precautions. ER confirmed with family that he is to be kept full code 11) HLD -Resume statin in AM FENA -NS@100 -PRN replete -Renal diet, bedside swallow eval given potential uremia -As tolerated
[2018-12-15] MEDS ORDERED: SODIUM CHLORIDE 500 ML IV STA ×2 (01:45→22:17)
[2018-12-15 06:59] LABS: ALBUMIN 2.6 g/dl (3.4-5.0); ALK PHOS 57 U/L (45-117); ANION GAP 7 MMOL/L (8-16); BILIRUBIN,TOTAL 0.4 mg/dL (0.2-1); BLOOD UREA NITROGEN 92 mg/dL (7-18); CALCIUM 7.8 mg/dL (8.5-10.1); CHLORIDE 118 mmol/L (98-107); CO2 19 mmol/L (21-32); CREATININE 3.6 mg/dL (0.55-1.3); GLUCOSE,RANDOM 65 mg/dL (74-106); MAGNESIUM 1.7 mg/dL (1.8-2.4); PHOSPHOROUS 3.6 mg/dL (2.5-4.9); POTASSIUM 4.9 mmol/L (3.5-5.1); SGOT/AST 12 U/L (15-37); SGPT/ALT 16 U/L (13-61); SODIUM 144 mmol/L (136-145); TOT PROT 4.9 g/dl (6.4-8.2)
[2018-12-15 08:09] LABS: BASO % 0.8 % (0-2.0); EOS % 3.5 % (0-4.5); HEMATOCRIT 23.8 % (35.4-49); HEMOGLOBIN 8.2 GM/dL (11.7-16.9); LYMPH % 17.5 % (8-40); MCH 32.4 pg (25.7-33.7); MCHC 34.3 g/dl (32.0-35.9); MEAN CELL VOLUME 94.6 fl (80-96); MEAN PLT VOLUME 10.1 fl (7.5-11.1); MONO % 10.5 % (3.8-10.2); NEUT % 67.7 % (42.8-82.8); PLATELET COUNT 99 K/MM3 (134-434); RBC 2.52 M/mm3 (4.00-5.60); RDW 14.3 % (11.9-15.9); WHITE BLOOD COUNT 5.1 K/mm3 (4.0-10.0)
[2018-12-15] MEDS: SODIUM CHLORIDE 1,000 ML IV SCH (10:00)
[2018-12-15] MEDS: MUPIROCIN 2% TOPICAL OINTMENT FOR DECOLONIZATION NS SCH ×2 (11:08→21:32)
[2018-12-15] MEDS: HEPARIN NA (PORCINE) 5,000 UNITS/ML 1ML VIAL SQ SCH ×2 (11:11→21:31)
--- NOTE | 2018-12-15 12:21 | PN ---
Teaching Attending Note Name of Resident: Cathryn Bustamante ATTENDING PHYSICIAN STATEMENT I saw and evaluated the patient. I reviewed the resident's note and discussed the case with the resident. I agree with the resident's findings and plan as documented. SUBJECTIVE: Patient seen and examined in the ICU. Awake and alert. Denies CP ro SOB. Potassium now 4.9. Intake & Output 12/12/18 12/13/18 12/14/18 12/15/18 23:59 23:59 23:59 23:59 Intake Total 1157 Output Total 1000 Balance 157 Weight 132 lb 1 oz Last Vital Signs Temp Pulse Resp BP Pulse Ox 98.6 F 66 17 130/53 L 95 12/15/18 10:00 12/15/18 12:00 12/15/18 12:00 12/15/18 12:00 12/14/18 22:41 Active Medications Chlorhexidine Gluconate (Hibiclens For Decolonization -) 1 applic TP HS [facility] Heparin Sodium (Porcine) (Heparin -) 5,000 unit SQ BID [facility] Last Admin: 12/15/18 11:11 Dose: 5,000 unit Sodium Chloride (Normal Saline -) 1,000 mls @ 100 mls/hr IV ASDIR [facility] Last Admin: 12/15/18 10:00 Dose: 100 mls/hr Mupirocin (Bactroban Ointment (For Decolonization) -) 1 applic NS BID [facility] Stop: 12/20/18 09:59 Last Admin: 12/15/18 11:08 Dose: 1 applic Constitutional: Yes: Awake and alert, poor Hygeine, Thin Eyes: Yes: Conjunctiva Clear, EOM Intact, PERRL HENT: Yes: Atraumatic, Normocephalic. No: Pharyngeal Erythema, Rhinnorhea, Thrush Neck: Yes: Supple, Trachea Midline, Decreased ROM. No: Tenderness, Thyromegaly Cardiovascular: Yes: Regular Rate and Rhythm, Murmur Respiratory: Yes: Clear Gastrointestinal: Yes: Normal Bowel Sounds, Soft Edema: No Peripheral Pulses WNL: Yes Integumentary: Yes: WNL Neurological: Yes: Alert, Oriented, non-focal ...Motor Strength: WNL Labs: Laboratory Results - last 24 hr 12/14/18 12/14/18 12/14/18 14:45 16:45 16:50 WBC 4.6 RBC 2.92 L Hgb 9.6 L Hct 27.9 L D MCV 95.3 MCH 32.9 MCHC 34.5 RDW 14.8 Plt Count 119 L MPV 9.9 Absolute Neuts (auto) 3.2 Neutrophils % 69.3 Lymphocytes % 17.1 Monocytes % 9.0 Eosinophils % 3.6 Basophils % 1.0 Nucleated RBC % 0 PT with INR 11.70 INR 0.99 PTT (Actin FS) 26.5 VBG pH 7.22 L* POC VBG pCO2 27.4 L POC VBG pO2 89.8 H Mixed VBG HCO3 10.7 L* Sodium Potassium Chloride Carbon Dioxide Anion Gap BUN Creatinine Creat Clearance w eGFR POC Glucometer Random Glucose Lactic Acid Calcium Phosphorus Magnesium Total Bilirubin AST ALT Alkaline Phosphatase Creatine Kinase Creatine Kinase Index CK-MB (CK-2) Troponin I Total Protein Albumin TSH Urine Color Urine Appearance Urine pH Ur Specific [place] Urine Protein Urine Glucose (UA) Urine Ketones Urine Blood Urine Nitrite Urine Bilirubin Urine Urobilinogen Ur Leukocyte Esterase 12/14/18 12/14/18 12/14/18 16:50 16:50 17:23 WBC RBC Hgb Hct MCV MCH MCHC RDW Plt Count MPV Absolute Neuts (auto) Neutrophils % Lymphocytes % Monocytes % Eosinophils % Basophils % Nucleated RBC % PT with INR INR PTT (Actin FS) VBG pH POC VBG pCO2 POC VBG pO2 Mixed VBG HCO3 Sodium 139 Potassium 6.5 H* Chloride 118 H Carbon Dioxide 14 L Anion Gap 7 L BUN 118 H* Creatinine 4.6 H Creat Clearance w eGFR 12.23 POC Glucometer Random Glucose 94 Lactic Acid 0.9 Calcium 8.9 Phosphorus Magnesium 2.1 Total Bilirubin 0.4 AST 14 L ALT 22 Alkaline Phosphatase 70 Creatine Kinase 160 Creatine Kinase Index 3.4 CK-MB (CK-2) 5.44 H Troponin I 0.02 Total Protein 6.5 Albumin 3.6 TSH 1.07 Urine Color Urine Appearance Urine pH Ur Specific [place] Urine Protein Urine Glucose (UA) Urine Ketones Urine Blood Urine Nitrite Urine Bilirubin Urine Urobilinogen Ur Leukocyte Esterase 12/14/18 12/14/18 12/14/18 17:39 18:56 20:00 WBC RBC Hgb Hct MCV MCH MCHC RDW Plt Count MPV Absolute Neuts (auto) Neutrophils % Lymphocytes % Monocytes % Eosinophils % Basophils % Nucleated RBC % PT with INR INR PTT (Actin FS) VBG pH 7.29 L POC VBG pCO2 30.4 L POC VBG pO2 38.6 D Mixed VBG HCO3 14.2 L* Sodium Potassium Chloride Carbon Dioxide Anion Gap BUN Creatinine Creat Clearance w eGFR POC Glucometer 93 Random Glucose Lactic Acid Calcium Phosphorus Magnesium Total Bilirubin AST ALT Alkaline Phosphatase Creatine Kinase Creatine Kinase Index CK-MB (CK-2) Troponin I Total Protein Albumin TSH Urine Color Ltyellow Urine Appearance Slcloudy Urine pH 5.0 Ur Specific [place] 1.011 Urine Protein Negative Urine Glucose (UA) Negative Urine Ketones Negative Urine Blood Negative Urine Nitrite Negative Urine Bilirubin Negative Urine Urobilinogen Negative Ur Leukocyte Esterase Negative 12/14/18 12/15/18 12/15/18 20:00 00:05 05:20 WBC 5.1 RBC 2.52 L Hgb 8.2 L Hct 23.8 L MCV 94.6 MCH 32.4 MCHC 34.3 RDW 14.3 Plt Count 99 L MPV 10.1 Absolute Neuts (auto) 3.5 Neutrophils % 67.7 Lymphocytes % 17.5 Monocytes % 10.5 H Eosinophils % 3.5 Basophils % 0.8 Nucleated RBC % 0 PT with INR INR PTT (Actin FS) VBG pH POC VBG pCO2 POC VBG pO2 Mixed VBG HCO3 Sodium 144 143 Potassium 5.1 4.9 Chloride 120 H 118 H Carbon Dioxide 17 L 18 L Anion Gap 7 L 7 L BUN 107 H* 100 H Creatinine 4.1 H 3.8 H Creat Clearance w eGFR 13.97 15.25 POC Glucometer Random Glucose 57 L 102 Lactic Acid Calcium 9.0 8.3 L Phosphorus 3.8 Magnesium 1.8 Total Bilirubin 0.4 0.4 AST 12 L 13 L ALT 17 19 Alkaline Phosphatase 58 58 Creatine Kinase Creatine Kinase Index CK-MB (CK-2) Troponin I Total Protein 5.3 L 5.1 L Albumin 3.0 L 2.6 L TSH Urine Color Urine Appearance Urine pH Ur Specific [place] Urine Protein Urine Glucose (UA) Urine Ketones Urine Blood Urine Nitrite Urine Bilirubin Urine Urobilinogen Ur Leukocyte Esterase 12/15/18 12/15/18 05:30 05:47 WBC RBC Hgb Hct MCV MCH MCHC RDW Plt Count MPV Absolute Neuts (auto) Neutrophils % Lymphocytes % Monocytes % Eosinophils % Basophils % Nucleated RBC % PT with INR INR PTT (Actin FS) VBG pH POC VBG pCO2 POC VBG pO2 Mixed VBG HCO3 Sodium 144 Potassium 4.9 Chloride 118 H Carbon Dioxide 19 L Anion Gap 7 L BUN 92 H Creatinine 3.6 H Creat Clearance w eGFR 16.23 POC Glucometer 64 Random Glucose 65 L Lactic Acid Calcium 7.8 L Phosphorus 3.6 Magnesium 1.7 L Total Bilirubin 0.4 AST 12 L ALT 16 Alkaline Phosphatase 57 Creatine Kinase Creatine Kinase Index CK-MB (CK-2) Troponin I 0.06 H Total Protein 4.9 L Albumin 2.6 L TSH Urine Color Urine Appearance Urine pH Ur Specific [place] Urine Protein Urine Glucose (UA) Urine Ketones Urine Blood Urine Nitrite Urine Bilirubin Urine Urobilinogen Ur Leukocyte Esterase Assessment/Plan Severe Hyperkalemia with resultant EKG changes HTN CAD BPH Renal insufficiency IVF Renal follow up Hold ROYA PO as tolerated O2 as needed Cardiac Telemetry monitoring Dr Orozco
--- NOTE | 2018-12-15 13:19 | EKG ---
Test Reason : Blood Pressure : / mmHG Vent. Rate : 072 BPM Atrial Rate : 072 BPM P-R Int : 150 ms QRS Dur : 086 ms QT Int : 386 ms P-R-T Axes : 049 -03 058 degrees QTc Int : 422 ms NORMAL SINUS RHYTHM NORMAL ECG WHEN COMPARED WITH ECG OF 17-MAY-2015 13:11, NONSPECIFIC T WAVE ABNORMALITY NOW EVIDENT IN LATERAL LEADS Confirmed by ZAYNAB DAVIS, KESHA ([id number]) on 12/15/2018 1:18:48 PM Referred By: Confirmed By:KESHA WORTHY MD
--- NOTE | 2018-12-15 13:21 | EKG ---
Test Reason : Blood Pressure : / mmHG Vent. Rate : 055 BPM Atrial Rate : 055 BPM P-R Int : 138 ms QRS Dur : 078 ms QT Int : 402 ms P-R-T Axes : 034 -07 039 degrees QTc Int : 384 ms POOR DATA QUALITY, INTERPRETATION MAY BE ADVERSELY AFFECTED SINUS BRADYCARDIA JUNCTIONAL ST DEPRESSION, PROBABLY NORMAL BORDERLINE ECG WHEN COMPARED WITH ECG OF 17-MAY-2015 13:11, QT HAS SHORTENED Confirmed by ZAYNAB DAVIS, KESHA ([id number]) on 12/15/2018 1:21:16 PM Referred By: Confirmed By:KESHA WORTHY MD
--- NOTE | 2018-12-15 13:23 | ECHO ---
Name: ELAINE KOWALSKI Exam:Adult Echocardiogram Study Date: 12/15/2018 11:34 AM Age: 83 yrs Reason For Study: LV Function Height: 61 in Weight: 125 lb BSA: 1.5 m2 MMode/2D Measurements & Calculations IVSd: 1.1 cm Ao root diam: 3.4 cm LVIDd: 3.5 cm LA dimension: 3.0 cm LVIDs: 2.2 cm LVPWd: 1.1 cm EDV(Teich): 50.8 ml LAV (MOD-bp): 49.7 ml ESV(Teich): 16.2 ml Doppler Measurements & Calculations MV E max claus: 96.0 cm/sec MV A max claus: 96.0 cm/sec MV dec slope: 444.9 cm/sec2 MV E/A: 1.00 AI P1/2t: 453.9 msec AI max claus: 406.0 cm/sec AI max P.9 mmHg AI dec slope: 261.9 cm/sec2 MR max claus: 459.4 cm/sec TR max claus: 290.5 cm/sec MR max P.0 mmHg TR max P.6 mmHg Med Peak E' Claus: 8.8 cm/sec PI Vmax: 196.8 cm/sec Med E/e': 10.9 Lat Peak E' Claus: 8.7 cm/sec Lat E/e': 11.0 Left Ventricle Left ventricular systolic function is grossly normal. Ejection Fraction = 50-55%. Right Ventricle The right ventricle is normal in size and function. Atria The left atrium is mildly dilated. Mitral Valve There is mild mitral annular calcification. There is mild mitral valve thickening. There is no mitral valve stenosis. There is mild mitral regurgitation. Tricuspid Valve The tricuspid valve is normal in structure and function. There is mild to moderate tricuspid regurgit ation. Right ventricular systolic pressure is elevated at 40-50mmHg. Aortic Valve There is mild aortic sclerosis.;. No hemodynamically significant valvular aortic stenosis. Mild aorti c regurgitation. Pulmonic Valve The pulmonic valve is not well seen, but is grossly normal. There is no pulmonic valvular stenosis. M ild pulmonic valvular regurgitation. Great Vessels The aortic root is normal size. Pericardium/Pleura There is no pericardial effusion. Interpretation Summary Left ventricular systolic function is grossly normal. Ejection Fraction = 50-55%. The left atrium is mildly dilated. There is mild mitral annular calcification. There is mild mitral valve thickening. There is mild mitral regurgitation. There is mild to moderate tricuspid regurgitation. Right ventricular systolic pressure is elevated at 40-50mmHg. There is mild aortic sclerosis.; Mild aortic regurgitation. There is no pericardial effusion. MD Crawley *Franny 12/15/2018 01:23 PM
--- NOTE | 2018-12-15 15:07 | PN ---
Physical Exam: SUBJECTIVE: Patient seen and examined this AM. No new complaints. Denies fevers , chills, chest pain, SOB, nausea, vomiting, diarrhea, constipation. OBJECTIVE: Vital Signs Period Temp Pulse Resp BP Sys/Malin Pulse Ox Last 24 Hr 97.3 F-98.6 F 46-95 15-20 89-151/49-84 95-100 GENERAL: A&Ox3, NAD HEAD: NCAT EYES: PERRL, EOMI ENT: Moist mucous membranes. NECK: Supple LUNGS: Diminished breath sounds at the bases, no wheezes, no crackles HEART: Regular rate and rhythm, S1, S2 without murmur ABDOMEN: Soft, nontender, nondistended, + bowel sounds, no guarding EXTREMITIES: No edema NEUROLOGICAL: Cranial nerves II through XII grossly intact. Normal speech SKIN: Warm, dry Laboratory Last Values WBC 5.1 K/mm3 (4.0-10.0) 12/15/18 05:20 RBC 2.52 M/mm3 (4.00-5.60) L 12/15/18 05:20 Hgb 8.2 GM/dL (11.7-16.9) L 12/15/18 05:20 Hct 23.8 % (35.4-49) L 12/15/18 05:20 MCV 94.6 fl (80-96) 12/15/18 05:20 MCH 32.4 pg (25.7-33.7) 12/15/18 05:20 MCHC 34.3 g/dl (32.0-35.9) 12/15/18 05:20 RDW 14.3 % (11.9-15.9) 12/15/18 05:20 Plt Count 99 K/MM3 (134-434) L 12/15/18 05:20 MPV 10.1 fl (7.5-11.1) 12/15/18 05:20 Absolute Neuts (auto) 3.5 K/mm3 (1.5-8.0) 12/15/18 05:20 Neutrophils % 67.7 % (42.8-82.8) 12/15/18 05:20 Lymphocytes % 17.5 % (8-40) 12/15/18 05:20 Monocytes % 10.5 % (3.8-10.2) H 12/15/18 05:20 Eosinophils % 3.5 % (0-4.5) 12/15/18 05:20 Basophils % 0.8 % (0-2.0) 12/15/18 05:20 Nucleated RBC % 0 % (0-0) 12/15/18 05:20 PT with INR 11.70 SEC (9.7-13.0) 12/14/18 16:45 INR 0.99 (0.83-1.09) 12/14/18 16:45 PTT (Actin FS) 26.5 SECONDS (25.2-36.5) 12/14/18 16:45 VBG pH 7.29 (7.32-7.42) L 12/14/18 20:00 POC VBG pCO2 30.4 mmHg (38-52) L 12/14/18 20:00 POC VBG pO2 38.6 mmHg (28-48) D 12/14/18 20:00 Mixed VBG HCO3 14.2 meq/L (19-25) L* 12/14/18 20:00 Sodium 144 mmol/L (136-145) 12/15/18 05:30 Potassium 4.9 mmol/L (3.5-5.1) 12/15/18 05:30 Chloride 118 mmol/L (98-107) H 12/15/18 05:30 Carbon Dioxide 19 mmol/L (21-32) L 12/15/18 05:30 Anion Gap 7 MMOL/L (8-16) L 12/15/18 05:30 BUN 92 mg/dL (7-18) H 12/15/18 05:30 Creatinine 3.6 mg/dL (0.55-1.3) H 12/15/18 05:30 Creat Clearance w eGFR 16.23 (>60) 12/15/18 05:30 POC Glucometer 87 UNITS (80-120) 12/15/18 12:48 Random Glucose 65 mg/dL (74-106) L 12/15/18 05:30 Lactic Acid 0.9 mmol/L (0.4-2.0) 12/14/18 16:50 Calcium 7.8 mg/dL (8.5-10.1) L 12/15/18 05:30 Phosphorus 3.6 mg/dL (2.5-4.9) 12/15/18 05:30 Magnesium 1.7 mg/dL (1.8-2.4) L 12/15/18 05:30 Total Bilirubin 0.4 mg/dL (0.2-1) 12/15/18 05:30 AST 12 U/L (15-37) L 12/15/18 05:30 ALT 16 U/L (13-61) 12/15/18 05:30 Alkaline Phosphatase 57 U/L (45-117) 12/15/18 05:30 Creatine Kinase 160 U/L (26-308) 12/14/18 16:50 Creatine Kinase Index 3.4 % (0.0-5.0) 12/14/18 16:50 CK-MB (CK-2) 5.44 ng/mL (0.5-3.6) H 12/14/18 16:50 Troponin I 0.06 ng/ml (0.00-0.05) H 12/15/18 05:30 Total Protein 4.9 g/dl (6.4-8.2) L 12/15/18 05:30 Albumin 2.6 g/dl (3.4-5.0) L 12/15/18 05:30 TSH 1.07 uIU/ml (0.358-3.74) 12/14/18 17:23 Urine Color Ltyellow 12/14/18 18:56 Urine Appearance Slcloudy 12/14/18 18:56 Urine pH 5.0 (5.0-8.0) 12/14/18 18:56 Ur Specific [place] 1.011 (1.010-1.035) 12/14/18 18:56 Urine Protein Negative (NEGATIVE) 12/14/18 18:56 Urine Glucose (UA) Negative (NEGATIVE) 12/14/18 18:56 Urine Ketones Negative (NEGATIVE) 12/14/18 18:56 Urine Blood Negative (NEGATIVE) 12/14/18 18:56 Urine Nitrite Negative (NEGATIVE) 12/14/18 18:56 Urine Bilirubin Negative (<2.0 mg/dL) 12/14/18 18:56 Urine Urobilinogen Negative mg/dL (0.2-1.0) 12/14/18 18:56 Ur Leukocyte Esterase Negative (NEGATIVE) 12/14/18 18:56 Active Medications Chlorhexidine Gluconate (Hibiclens For Decolonization -) 1 applic TP HS ALEJANDRA Heparin Sodium (Porcine) (Heparin -) 5,000 unit SQ BID [facility] Last Admin: 12/15/18 11:11 Dose: 5,000 unit Sodium Chloride (Normal Saline -) 1,000 mls @ 100 mls/hr IV ASDIR ALEJANDRA Last Admin: 12/15/18 10:00 Dose: 100 mls/hr Mupirocin (Bactroban Ointment (For Decolonization) -) 1 applic NS BID [facility] Stop: 12/20/18 09:59 Last Admin: 12/15/18 11:08 Dose: 1 applic ASSESSMENT/PLAN: 83 y/o M with PMHx HTN, HLD, CAD s/p stenting, BPH will be monitored in ICU s/p Hyperkalemia with EKG Changes. #Neuro -A&Ox3, NAD -No active issues, continue to monitor #Cardio hx of HTN, HLD, CAD s/p Stenting -Trop 0.02 --> 0.06; Likely Demand from hypoperfusion -EKG: Peaked T Waves, JUNCTIONAL ST DEPRESSION, VR 55, QTc 384 -EKG: NSR, VR 72, QTc 422 -Echo: EF 50-55%, LA is mildly dilated, Mild MR AR -Hold Anti-HTN meds #Pulm -CXR: An acute process is not seen -Supplemental O2 to maintain Sats >90% #GI -No active issues, continue to monitor #Renal Acute Renal Failure Hyperkalemia, Resolved -Likely medication induced vs decreased PO intake -K+ 6.5 --> 4.9 -VBG revealed pH 7.22 --> 7.29 -S/P Calcium Gluconate X 3, 2L NS, 10u Insulin, Kayexalate 30gm x1, Sodium Bicarb 50 mEq x4, Bicarb Drip -Kidney/Renal US: No hydronephrosis is seen. The kidneys demonstrate no definite sonographic abnormality. Pierre catheter in place. Prostate enlargement. -Continue NS @ 100 mls/hr -Dr. Jackson consulted -Hold Nephrotoxic meds -Monitor Urine output #Heme Normocytic, Normochromic Anemia Thrombocytopenia -Dilutional Component -No signs of active bleeding -Continue to monitor #Endo -No active issues, continue to monitor #ID -AFebrile, without elevated WBC count -Lactic Acid 0.9 -UA Negative; Urine Cx pending -No indication for ABx at this time #FEN -NS @ 100 mls/hr -Replete Lytes PRN -Renal Diet #PPx -DVT: Heparin BID Code Status: Full Code Dispo: Transfer to Tele Visit type - Emergency Visit Emergency Visit: Yes ED Registration Date: 12/14/18 Care time: The patient presented to the Emergency Department on the above date and was hospitalized for further evaluation of their emergent condition. - New Patient This patient is new to me today: Yes Date on this admission: 12/15/18 - Critical Care Critical Care patient: Yes Total Critical Care Time (in minutes): 40 Critical Care Statement: The care of this patient involved high complexity decision making to prevent further life threatening deterioration of the patient 's condition and/or to evaluate & treat vital organ system(s) failure or risk of failure.
--- NOTE | 2018-12-15 15:08 | PN ---
Physical Exam: SUBJECTIVE: Patient seen and examined by me at bedside. Patient presented with elevated potassium >6 Patient today has Potassium of 4.9 Otherwise, denies any fever, chills, nausea, vomiting, chest pain, palpitations , shortness of breath OBJECTIVE: Vital Signs Period Temp Pulse Resp BP Sys/Malin Pulse Ox Last 24 Hr 97.3 F-98.6 F 46-95 15-20 89-151/49-84 95-100 GENERAL: The patient is awake, alert, and fully oriented, in no acute distress. HEAD: Normal with no signs of trauma. EYES: PERRL, sclera anicteric, conjunctiva clear. ENT: Moist mucous membranes. LUNGS: CTA bilaterally, no wheezes, no crackles, no accessory muscle use. HEART: Regular rate and rhythm, normal s1 and s2 without murmur, rub or gallop. ABDOMEN: Soft, nontender, nondistended, normoactive bowel sounds. EXTREMITIES: No edema. NEUROLOGICAL: Cranial nerves II through XII grossly intact. Normal speech Laboratory Results 12/15/18 05:20 12/15/18 05:30 12/15/18 05:30 Phosphorus 3.6 Magnesium 1.7 L Total Bilirubin 0.4 AST 12 L ALT 16 Alkaline Phosphatase 57 Troponin I 0.06 H Active Medications Generic Name Dose Route Start Last Admin Trade Name Brandtq PRN Reason Stop Dose Admin Chlorhexidine Gluconate 1 applic 12/15/18 22:00 Hibiclens For Decolonization - TP HS ALEJANDRA Heparin Sodium (Porcine) 5,000 unit 12/15/18 10:00 12/15/18 11:11 Heparin - SQ 5,000 unit BID ALEJANDRA Administration Sodium Chloride 1,000 mls @ 100 mls/hr 12/15/18 08:15 12/15/18 10:00 Normal Saline - IV 100 mls/hr ASDIR ALEJANDRA Administration Mupirocin 1 applic 12/15/18 10:00 12/15/18 11:08 Bactroban Ointment (For Decolonization) - NS 12/20/18 09:59 1 applic BID ALEJANDRA Administration ASSESSMENT/PLAN: Patient is an 83 year old male who presented with acute renal failure and hyperkalemia associated with bradycardia and hypotensive. Patient admitted for further monitoring and management. Severe HyperKalemia w/ EKG changes -Patient was given Calcium gluc, insulin ans D50, kayexalate -EKG revealed peaked t waves -Likely from PO KCL and ROYA. Will need to hold for now -Continue IV hydration with NS @100cc/hr -Continue to monitor BMP and EKG's Acute Renal Failure -Likely from poor oral intake, use of KCl, and ROYA. -Renal U/S revealed no acute pathology -Will continue IV NS @100cc/hr -I&O's -Awaiting nephrology input -Avoid nephrotoxic medications -Renally dose medications. Metabolic Acidosis -Improving -Likely secondary to Renal failure Sinus Bradycardia/Hypotension -Resolved after resolution of hyperkalemia -Continue cardiac monitoring CAD s/p stenting -On no medications HTN -Had hypotensive episodes and still borderline hypotensive -Will hold medications for now -Continue to monitor BP Dementia -On no medications HLD -Resume Simvastatin 10mg HS F/E/N -IV NS@100mls/hr -Hypomagnesemia. replete and repeat -Renal diet Prophylaxis -Heparin 5000 units sq TID for DVT -No GI required Disposition -Full code -PT for deconditioning -Awaiting renal consult Radha Aldrich [id number] Visit type - Emergency Visit Emergency Visit: Yes ED Registration Date: 12/14/18 Care time: The patient presented to the Emergency Department on the above date and was hospitalized for further evaluation of their emergent condition. - New Patient This patient is new to me today: Yes Date on this admission: 12/17/18 - Critical Care Critical Care patient: No
--- NOTE | 2018-12-15 15:57 | CONSULT ---
Consult Consult Specialty:: Nephrology Reason for Consultation:: RADHA - History of Present Illness Chief Complaint: sent in for abnormal bloodwork History of Present Illness: Pt is an 83 year old male with pmhx of HTN, CAD, HLD and prostate disease who was sent to the hospital for abnormal blood work. He was found to be hyperkalemic and in acute renal failure. He has had generalized weakness of the last few weeks. He has had decreased PO intake. He denies diarrhea or vomiting. He says he has lost about 10 pounds over the last few months. ER called me with the lab values last times and we were able to stabilizing his renal function and potassium with medical management. He denies chest pain or palpitations. He denies nsaid use. He was on an narendra inhibitor, lasix and potassium supplements. He does have history of CKD. 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 Home Medications - Allergies Allergies/Adverse Reactions: Allergies Allergy/AdvReac Type Severity Reaction Status Date / Time No Known Allergies Allergy Verified 05/17/15 11:01 - Home Medications Home Medications: Ambulatory Orders Cholecalciferol (Vitamin D3) [Vitamin D3] 1,000 unit PO DAILY 05/17/15 Metoprolol Tartrate [Lopressor -] 25 mg PO BID 05/17/15 Quinapril HCl [Accupril -] 20 mg PO DAILY 05/17/15 Simvastatin 10 mg PO DAILY 05/17/15 Terazosin HCl 5 mg PO DAILY 05/17/15 Furosemide [Lasix -] 20 mg PO DAILY 12/14/18 Potassium Bicarbonate/Cit AC [Potassium 25 Meq Tablet Eff] 25 meq PO DAILY 12/14 Family Disease History - Family Disease History Family Disease History: Other: Brother ( but pt does not know the cause) Review of Systems - Review of Systems Constitutional: reports: Loss of Appetite, Malaise Eyes: reports: No Symptoms HENT: reports: No Symptoms Neck: reports: No Symptoms Cardiovascular: reports: No Symptoms Respiratory: reports: No Symptoms Gastrointestinal: reports: No Symptoms Genitourinary: reports: No Symptoms Musculoskeletal: reports: Muscle Weakness Neurological: reports: No Symptoms Endocrine: reports: No Symptoms Hematology/Lymphatic: reports: No Symptoms Psychiatric: reports: No Symptoms Physical Exam Vital Signs: Vital Signs Temperature 98.7 F 12/15/18 13:56 Pulse Rate 62 12/15/18 15:37 Respiratory Rate 17 12/15/18 15:37 Blood Pressure 95/47 L 12/15/18 15:37 O2 Sat by Pulse Oximetry (%) 100 12/15/18 09:00 Constitutional: Yes: Calm Eyes: Yes: Conjunctiva Clear HENT: Yes: Atraumatic Cardiovascular: Yes: S1, S2 Respiratory: Yes: CTA Bilaterally Gastrointestinal: Yes: Soft Renal/: Yes: Pierre Present Musculoskeletal: Yes: WNL Edema: No Neurological: Yes: Oriented Psychiatric: Yes: Oriented Labs: CBC, BMP 12/15/18 05:20 12/15/18 05:30 Laboratory Tests 12/14/18 12/14/18 12/14/18 16:50 16:50 18:56 Hgb 9.6 L Sodium Potassium 6.5 H* Carbon Dioxide 14 L BUN 118 H* Creatinine 4.6 H Urine Protein Negative Urine Blood Negative 12/14/18 12/15/18 12/15/18 20:00 00:05 05:20 Hgb 8.2 L Sodium Potassium 5.1 Carbon Dioxide 17 L BUN 107 H* Creatinine 4.1 H 3.8 H Urine Protein Urine Blood 12/15/18 05:30 Hgb Sodium 144 Potassium 4.9 Carbon Dioxide BUN 92 H Creatinine 3.6 H Urine Protein Urine Blood Imaging - Results Chest X-ray: Report Reviewed Ultrasound: Report Reviewed Problem List - Problems (1) Acute kidney failure Code(s): N17.9 - ACUTE KIDNEY FAILURE, UNSPECIFIED (2) Bradycardia Code(s): R00.1 - BRADYCARDIA, UNSPECIFIED (3) Hyperkalemia Code(s): E87.5 - HYPERKALEMIA (4) Hypotension Code(s): I95.9 - HYPOTENSION, UNSPECIFIED (5) HTN (hypertension) Code(s): I10 - ESSENTIAL (PRIMARY) HYPERTENSION Assessment/Plan Current Medications Generic Name Dose Route Start Last Admin Trade Name Freq PRN Reason Stop Dose Admin Atorvastatin Calcium 10 mg 12/15/18 22:00 Lipitor - PO HS ALEJANDRA Chlorhexidine Gluconate 1 applic 12/15/18 22:00 Hibiclens For Decolonization - TP HS ALEJANDRA Heparin Sodium (Porcine) 5,000 unit 12/15/18 10:00 12/15/18 11:11 Heparin - SQ 5,000 unit BID ALEJANDRA Administration Sodium Chloride 1,000 mls @ 100 mls/hr 12/15/18 08:15 12/15/18 10:00 Normal Saline - IV 100 mls/hr ASDIR ALEJANDRA Administration Mupirocin 1 applic 12/15/18 10:00 12/15/18 11:08 Bactroban Ointment (For Decolonization) - NS 12/20/18 09:59 1 applic BID ALEJANDRA Administration Impression 1. RADHA 2. hyperkalemia 3. metabolic acidosis 4. HLD 5. HTN 6. bradycardia 7. weight loss 8. CAD Plan - potassium treated medically - discussed with ER several times through the course of the night - potassium is improved - renal function is improving - pt is making urine - follow up urine studies - ua is negative for blood or protein - no indication for HD at this point - discussed with ICU team - discussed with medical team - hold lasix, potassium supplements and narendra - avoid nsaids - renal diet Dr Jackson
--- NOTE | 2018-12-15 16:34 | PN ---
Teaching Attending Note Name of Resident: Radha Aldrich ATTENDING PHYSICIAN STATEMENT I saw and evaluated the patient. I reviewed the resident's note and discussed the case with the resident. I agree with the resident's findings and plan as documented. SUBJECTIVE: Mr Alcocer is without complaint. He denies cp, sob, n/v. OBJECTIVE: Last Vital Signs Temp Pulse Resp BP Pulse Ox 37.2 C 58 L 17 113/48 L 100 12/15/18 18:00 12/15/18 18:00 12/15/18 18:00 12/15/18 18:00 12/15/18 09:00 Gen: nad Pulm: ctab w/o w/r/r CV: rrr w/o m/r/g Abd: +bs, s/nt/nd Ext: no c/c/e, unkempt toenails CBC, BMP 12/15/18 05:20 12/15/18 17:30 ASSESSMENT AND PLAN: Problem List - Problems (1) Acute kidney failure Assessment/Plan: -case d/w dr Jackson -continue hydration -continue holding lasix and ARB -making urine -improving Code(s): N17.9 - ACUTE KIDNEY FAILURE, UNSPECIFIED (2) Hyperkalemia Assessment/Plan: -resolved with medical management -hold potassium supplements and ARB Code(s): E87.5 - HYPERKALEMIA (3) Hypotension Assessment/Plan: -continue hydration Code(s): I95.9 - HYPOTENSION, UNSPECIFIED (4) Dementia Assessment/Plan: -stable Code(s): F03.90 - UNSPECIFIED DEMENTIA WITHOUT BEHAVIORAL DISTURBANCE (5) HTN (hypertension) Assessment/Plan: -currently hypotensive -holding blood pressure medications at this time Code(s): I10 - ESSENTIAL (PRIMARY) HYPERTENSION (6) Hyperlipemia Assessment/Plan: -continue statin Code(s): E78.5 - HYPERLIPIDEMIA, UNSPECIFIED
[2018-12-15] MEDS ORDERED: PT OWN MED DRAWER 7, Y5N ONE (20:43)
[2018-12-15] MEDS: ATORVASTATIN CA 10 MG TABLET (FP) PO SCH (21:31)
[2018-12-15] MEDS: CHLORHEXIDINE GLUCONATE 4% CLEANSER FOR DECOLONIZATION TP SCH (21:33)
[2018-12-15] MEDS ORDERED: PATIENT'S OWN MEDICATION (NON-FORMULARY) (Simvastatin [Simvastatin] 10 MG) PO SCH (22:00)
[2018-12-16] MEDS ORDERED: ACETAMINOPHEN 325 MG TABLET (FP) PO ONE (04:34)
[2018-12-16 06:58] LABS: BASO % 0.5 % (0-2.0); EOS % 1.8 % (0-4.5); HEMOGLOBIN 7.5 GM/dL (11.7-16.9); LYMPH % 10.1 % (8-40); MCH 32.1 pg (25.7-33.7); MEAN CELL VOLUME 94.3 fl (80-96); MEAN PLT VOLUME 9.8 fl (7.5-11.1); MONO % 9.6 % (3.8-10.2); PLATELET COUNT 93 K/MM3 (134-434); RBC 2.34 M/mm3 (4.00-5.60); RDW 14.3 % (11.9-15.9); WHITE BLOOD COUNT 5.6 K/mm3 (4.0-10.0)
[2018-12-16 07:16] LABS: ALBUMIN 2.4 g/dl (3.4-5.0); ALK PHOS 52 U/L (45-117); ANION GAP 7 MMOL/L (8-16); BILIRUBIN,TOTAL 0.4 mg/dL (0.2-1); BLOOD UREA NITROGEN 76 mg/dL (7-18); CALCIUM 7.2 mg/dL (8.5-10.1); CHLORIDE 121 mmol/L (98-107); CO2 16 mmol/L (21-32); CREATININE 3.2 mg/dL (0.55-1.3); GLUCOSE,RANDOM 96 mg/dL (74-106); MAGNESIUM 1.5 mg/dL (1.8-2.4); PHOSPHOROUS 2.9 mg/dL (2.5-4.9); POTASSIUM 4.5 mmol/L (3.5-5.1); SGOT/AST 12 U/L (15-37); SGPT/ALT 14 U/L (13-61); SODIUM 144 mmol/L (136-145); TOT PROT 4.6 g/dl (6.4-8.2)
[2018-12-16 07:25] LABS: INR 1.09 (0.83-1.09); PROTHROMBIN TIME (PATIENT) 12.9 SEC (9.7-13.0)
[2018-12-16 07:27] LABS: ACTIVATED PTT 28.3 SECONDS (25.2-36.5)
--- NOTE | 2018-12-16 08:13 | PN ---
Progress Note (short form) - Note Progress Note: PULM/CCM Pt Seen & Examined in the ICU. All metabolic disarray labs cooling off. Pt in NAD. Active Medications Acetaminophen (Tylenol -) 650 mg PO Q6H PRN PRN Reason: PAIN LEVEL 1-5 Last Admin: 12/16/18 09:47 Dose: 650 mg Atorvastatin Calcium (Lipitor -) 10 mg PO HS [facility] Last Admin: 12/16/18 21:03 Dose: 10 mg Chlorhexidine Gluconate (Hibiclens For Decolonization -) 1 applic TP HS [facility] Last Admin: 12/16/18 21:03 Dose: 1 applic Heparin Sodium (Porcine) (Heparin -) 5,000 unit SQ BID [facility] Last Admin: 12/16/18 21:02 Dose: 5,000 unit Sodium Bicarbonate 50 meq/ (Sodium Chloride) 1,050 mls @ 83 mls/hr IV Q12H [facility] Last Admin: 12/16/18 23:30 Dose: 83 mls/hr Mupirocin (Bactroban Ointment (For Decolonization) -) 1 applic NS BID [facility] Stop: 12/20/18 09:59 Last Admin: 12/16/18 21:02 Dose: 1 applic Vital Signs Period Temp Pulse Resp BP Sys/Malin Pulse Ox Last 24 Hr 98.6 F-100.1 F 58-87 15-24 108-140/50-94 97 Intake & Output 12/14/18 12/15/18 12/16/18 12/17/18 23:59 23:59 23:59 23:59 Intake Total 3207 3646 Output Total 1900 800 Balance 1307 2846 Weight 59.903 kg 61.689 kg PULM: CTAB CV: nml S1, S2, RR ABD: +BS S/S X4Q EXT: + Pulses, WWPX4, (-) edema NEURO: CA+OX3 CBC, BMP 12/16/18 05:30 12/16/18 05:30 Microbiology 12/14/18 18:56 Urine - Urine Pierre Urine Culture - Final NO GROWTH OBTAINED STUDIES TO NOTE: CXR 12/14: A single AP view of the chest is been submitted. Since 05/17/2015 the patient is slightly more rotated to the left. There is a weak inspiration with resultant prominent sclerotic knob, normal fawn and prominent heart. The lungs are clear. The angles are sharp and the soft tissues are intact. An acute process is not seen. Correlation recommended. ASSESS: RADHA Severe Hyperkalemia w/ EKG changes HTN HLD CAD BPH Renal insufficiency Anemia PLAN: Hold ROYA O2 as needed Change IVFs to 1/2 NS w/ bicarb (less Cl-) Strict I's & O's Replete e-lytes prn PO as tolerated Transfer --> Tele Renal follow up DGL, ACNP-BC [facility] ICU PULM/CCM [id number]
[2018-12-16] MEDS: ACETAMINOPHEN 325 MG TABLET (FP) PO PRN (09:47)
[2018-12-16] MEDS: SODIUM CHLORIDE 1,000 ML IV SCH (09:47)
[2018-12-16] MEDS: MUPIROCIN 2% TOPICAL OINTMENT FOR DECOLONIZATION NS SCH ×2 (09:48→21:02)
[2018-12-16] MEDS: HEPARIN NA (PORCINE) 5,000 UNITS/ML 1ML VIAL SQ SCH ×2 (09:48→21:02)
--- NOTE | 2018-12-16 09:59 | PN ---
Progress Note (short form) - Note Progress Note: RENAL Pt awake and alert comfortable though upset because he needs to have a BM Last Vital Signs Temp Pulse Resp BP Pulse Ox 98.9 F 65 20 113/54 L 97 12/16/18 06:00 12/16/18 07:57 12/16/18 07:57 12/16/18 07:57 12/15/18 20:32 lungs clear cvs s1s2 rr abd soft ext no edema neuro a+ox3 has a smith and is draining urine CBC, BMP 12/16/18 05:30 12/16/18 05:30 Current Medications Generic Name Dose Route Start Last Admin Trade Name Freq PRN Reason Stop Dose Admin Acetaminophen 650 mg 12/16/18 09:37 12/16/18 09:47 Tylenol - PO 650 mg Q6H PRN Administration PAIN LEVEL 1-5 Atorvastatin Calcium 10 mg 12/15/18 22:00 12/15/18 21:31 Lipitor - PO 10 mg HS ALEJANDRA Administration Chlorhexidine Gluconate 1 applic 12/15/18 22:00 12/15/18 21:33 Hibiclens For Decolonization - TP 1 applic HS ALEJANDRA Administration Heparin Sodium (Porcine) 5,000 unit 12/15/18 10:00 12/16/18 09:48 Heparin - SQ 5,000 unit BID ALEJANDRA Administration Sodium Chloride 1,000 mls @ 100 mls/hr 12/15/18 08:15 12/16/18 09:47 Normal Saline - IV 100 mls/hr ASDIR ALEJANDRA Administration Mupirocin 1 applic 12/15/18 10:00 12/16/18 09:48 Bactroban Ointment (For Decolonization) - NS 12/20/18 09:59 1 applic BID ALEJANDRA Administration Impression 1. RADHA 2. hyperkalemia 3. metabolic acidosis- hyperchloremic. Not RTA probably from renal failure 4. HLD 5. HTN 6. bradycardia 7. weight loss 8. CAD 9 worsening anemia Plan would change to 1/2 ns with bicarb to give less chloride continue smith drainage for now evaluate anemia MV
--- NOTE | 2018-12-16 11:41 | PN ---
Progress Note, Physician Chief Complaint: Mr Alcocer complains of knee pain. He says it is chronic and unchanged for years. Denies cp, sob, n/v. - Current Medication List Current Medications: Active Medications Acetaminophen (Tylenol -) 650 mg PO Q6H PRN PRN Reason: PAIN LEVEL 1-5 Last Admin: 12/16/18 09:47 Dose: 650 mg Atorvastatin Calcium (Lipitor -) 10 mg PO HS ALEJANDRA Last Admin: 12/15/18 21:31 Dose: 10 mg Chlorhexidine Gluconate (Hibiclens For Decolonization -) 1 applic TP HS ALEJANDRA Last Admin: 12/15/18 21:33 Dose: 1 applic Heparin Sodium (Porcine) (Heparin -) 5,000 unit SQ BID ALEJANDRA Last Admin: 12/16/18 09:48 Dose: 5,000 unit Sodium Bicarbonate 50 meq/ (Sodium Chloride) 1,050 mls @ 83 mls/hr IV Q12H ALEJANDRA Mupirocin (Bactroban Ointment (For Decolonization) -) 1 applic NS BID ALEJANDRA Stop: 12/20/18 09:59 Last Admin: 12/16/18 09:48 Dose: 1 applic - Objective Vital Signs: Vital Signs Temperature 37.8 C H 12/16/18 10:00 Pulse Rate 85 12/16/18 10:00 Respiratory Rate 24 H 12/16/18 10:00 Blood Pressure 108/57 L 12/16/18 10:00 O2 Sat by Pulse Oximetry (%) 97 12/15/18 20:32 Constitutional: Yes: Well Nourished, No Distress, Calm Cardiovascular: Yes: Regular Rate and Rhythm. No: Gallop, Murmur, Rub Respiratory: Yes: Regular, CTA Bilaterally. No: Rales, Rhonchi, Wheezes Gastrointestinal: Yes: Normal Bowel Sounds, Soft. No: Distention, Tenderness Extremities: Yes: WNL Edema: No Labs: CBC, BMP 12/16/18 05:30 12/16/18 05:30 INR, PTT INR 1.09 (0.83-1.09) 12/16/18 05:30 Problem List - Problems (1) Acute kidney failure Code(s): N17.9 - ACUTE KIDNEY FAILURE, UNSPECIFIED (2) Hyperkalemia Code(s): E87.5 - HYPERKALEMIA (3) Hypotension Code(s): I95.9 - HYPOTENSION, UNSPECIFIED (4) Dementia Code(s): F03.90 - UNSPECIFIED DEMENTIA WITHOUT BEHAVIORAL DISTURBANCE (5) HTN (hypertension) Code(s): I10 - ESSENTIAL (PRIMARY) HYPERTENSION (6) Hyperlipemia Code(s): E78.5 - HYPERLIPIDEMIA, UNSPECIFIED (7) Anemia Code(s): D64.9 - ANEMIA, UNSPECIFIED Qualifiers: Anemia type: due to chronic kidney disease Chronic kidney disease stage: stage 4 (severe) Qualified Code(s): N18.4 - Chronic kidney disease, stage 4 ( severe); D63.1 - Anemia in chronic kidney disease Assessment/Plan (1) Acute kidney failure Assessment/Plan: -nephrology note reviewed -placed on 1/2 NS with sodium bicarb -improving Code(s): N17.9 - ACUTE KIDNEY FAILURE, UNSPECIFIED (2) Hyperkalemia Assessment/Plan: -resolved with medical management -hold potassium supplements and ARB Code(s): E87.5 - HYPERKALEMIA (3) Hypotension Assessment/Plan: -currently normotensive -continue hydration Code(s): I95.9 - HYPOTENSION, UNSPECIFIED (4) Dementia Assessment/Plan: -stable Code(s): F03.90 - UNSPECIFIED DEMENTIA WITHOUT BEHAVIORAL DISTURBANCE (5) HTN (hypertension) Assessment/Plan: -normal -monitor -on IVF Code(s): I10 - ESSENTIAL (PRIMARY) HYPERTENSION (6) Hyperlipemia Assessment/Plan: -continue statin Code(s): E78.5 - HYPERLIPIDEMIA, UNSPECIFIED (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
[2018-12-16] MEDS ORDERED: oxyCODONE HCL 5 MG TABLET ONE (11:46)
[2018-12-16] MEDS ORDERED: oxyCODONE HCL 10 MG SUSTAINED ACTING TABLET PO ONE (12:19)
[2018-12-16 13:13] VITALS: BMI 25.7
[2018-12-16] MEDS ORDERED: oxyCODONE HCL 5 MG TABLET PO ONE (13:33)
[2018-12-16] MEDS: SODIUM BICARBONATE 8.4% - 50 MEQ in SODIUM CHLORIDE 0.45% 1,000 ML IV SCH ×2 (14:02→23:30)
[2018-12-16] MEDS: CHLORHEXIDINE GLUCONATE 4% CLEANSER FOR DECOLONIZATION TP SCH (21:03)
[2018-12-16] MEDS: ATORVASTATIN CA 10 MG TABLET (FP) PO SCH (21:03)
[2018-12-17] MEDS ORDERED: oxyCODONE HCL 5 MG TABLET PO ONE (00:57)
[2018-12-17] MEDS ORDERED: oxyCODONE HCL 5 MG TABLET ONE (01:03)
[2018-12-17 05:54] LABS: BASO % 0.4 % (0-2.0); EOS % 1.4 % (0-4.5); HEMATOCRIT 22.8 % (35.4-49); HEMOGLOBIN 7.7 GM/dL (11.7-16.9); LYMPH % 10.9 % (8-40); MEAN CELL VOLUME 94.2 fl (80-96); MEAN PLT VOLUME 9.9 fl (7.5-11.1); MONO % 14.8 % (3.8-10.2); NEUT % 72.5 % (42.8-82.8); PLATELET COUNT 85 K/MM3 (134-434); RBC 2.42 M/mm3 (4.00-5.60); RDW 14.3 % (11.9-15.9); WHITE BLOOD COUNT 6.6 K/mm3 (4.0-10.0)
[2018-12-17 06:36] LABS: ANION GAP 7 MMOL/L (8-16); BLOOD UREA NITROGEN 66 mg/dL (7-18); CALCIUM 7.2 mg/dL (8.5-10.1); CHLORIDE 118 mmol/L (98-107); CO2 18 mmol/L (21-32); CREATININE 3.1 mg/dL (0.55-1.3); GLUCOSE,RANDOM 78 mg/dL (74-106); MAGNESIUM 1.2 mg/dL (1.8-2.4); PHOSPHOROUS 2.5 mg/dL (2.5-4.9); POTASSIUM 4.1 mmol/L (3.5-5.1); SODIUM 143 mmol/L (136-145)
--- NOTE | 2018-12-17 09:31 | PN ---
Progress Note (short form) - Note Progress Note: RENAL Pt awake and alert comfortable though upset because he needs to have a BM Last Vital Signs Temp Pulse Resp BP Pulse Ox 98.9 F 68 18 111/60 97 12/17/18 06:00 12/17/18 06:00 12/17/18 06:00 12/17/18 06:00 12/16/18 20:19 lungs clear cvs s1s2 rr abd soft ext no edema neuro a+ox3 has a smith and is draining clear urine CBC, BMP 12/17/18 05:30 12/17/18 05:30 Current Medications Generic Name Dose Route Start Last Admin Trade Name Freq PRN Reason Stop Dose Admin Acetaminophen 650 mg 12/16/18 09:37 12/16/18 09:47 Tylenol - PO 650 mg Q6H PRN Administration PAIN LEVEL 1-5 Atorvastatin Calcium 10 mg 12/15/18 22:00 12/16/18 21:03 Lipitor - PO 10 mg HS ALEJANDRA Administration Chlorhexidine Gluconate 1 applic 12/15/18 22:00 12/16/18 21:03 Hibiclens For Decolonization - TP 1 applic HS ALEJANDRA Administration Heparin Sodium (Porcine) 5,000 unit 12/15/18 10:00 12/16/18 21:02 Heparin - SQ 5,000 unit BID ALEJANDRA Administration Sodium Bicarbonate 50 meq/ 1,050 mls @ 83 mls/hr 12/16/18 10:15 12/16/18 23: 30 Sodium Chloride IV 83 mls/hr Q12H ALEJANDRA Administration Mupirocin 1 applic 12/15/18 10:00 12/16/18 21:02 Bactroban Ointment (For Decolonization) - NS 12/20/18 09:59 1 applic BID ALEJANDRA Administration Impression 1. RADHA/CKD 2. hyperkalemia 3. metabolic acidosis- hyperchloremic. Not RTA probably from renal failure 4. HLD 5. HTN 6. bradycardia 7. weight loss 8. CAD 9 worsening anemia Plan continue fluids continue smith drainage for now evaluate anemia- iron studies pending. He maybe a candidate for pamela repeat chest x ray to help guide fluid management guaiac stools MV
[2018-12-17] MEDS: HEPARIN NA (PORCINE) 5,000 UNITS/ML 1ML VIAL SQ SCH ×2 (10:32→22:38)
[2018-12-17] MEDS: MUPIROCIN 2% TOPICAL OINTMENT FOR DECOLONIZATION NS SCH ×2 (10:32→22:42)
[2018-12-17] MEDS: SODIUM BICARBONATE 8.4% - 50 MEQ in SODIUM CHLORIDE 0.45% 1,000 ML IV SCH ×2 (12:01→22:42)
[2018-12-17] MEDS ORDERED: DOCUSATE SODIUM 100 MG CAPSULE (FP) PO PRN (12:51)
[2018-12-17] MEDS ORDERED: MAGNESIUM OXIDE 400 MG TABLET (FP) PO ONE (12:55)
--- NOTE | 2018-12-17 13:00 | PN ---
Physical Exam: SUBJECTIVE: Patient seen and examined by me at bedside No acute events overnight Patient complains of constipation Otherwise, denies any fever, chills, nausea, vomiting, chest pain, palpitations , shortness of breath OBJECTIVE: Vital Signs Period Temp Pulse Resp BP Sys/Malin Pulse Ox Last 24 Hr 98.6 F-99.9 F 68-87 15-22 108-140/50-70 97 GENERAL: The patient is awake, alert, and fully oriented, in no acute distress. EYES: Sclera anicteric, conjunctiva clear. ENT: Moist mucous membranes. LUNGS: CTA bilaterally, no wheezes, no crackles, no accessory muscle use. HEART: Regular rate and rhythm, normal s1 and s2 without murmur, rub or gallop. ABDOMEN: Soft, nontender, nondistended, normoactive bowel sounds. EXTREMITIES: No edema. NEUROLOGICAL: Cranial nerves II through XII grossly intact. Normal speech Laboratory Results 12/17/18 05:30 12/17/18 05:30 12/17/18 05:30 Phosphorus 2.5 Magnesium 1.2 L Vitamin B12 468 Serum Folate 5 Active Medications Generic Name Dose Route Start Last Admin Trade Name Freq PRN Reason Stop Dose Admin Acetaminophen 650 mg 12/16/18 09:37 12/16/18 09:47 Tylenol - PO 650 mg Q6H PRN Administration PAIN LEVEL 1-5 Atorvastatin Calcium 10 mg 12/15/18 22:00 12/16/18 21:03 Lipitor - PO 10 mg HS ALEJANDRA Administration Chlorhexidine Gluconate 1 applic 12/15/18 22:00 12/16/18 21:03 Hibiclens For Decolonization - TP 1 applic HS ALEJANDRA Administration Heparin Sodium (Porcine) 5,000 unit 12/15/18 10:00 12/17/18 10:32 Heparin - SQ 5,000 unit BID ALEJANDRA Administration Sodium Bicarbonate 50 meq/ 1,050 mls @ 83 mls/hr 12/16/18 10:15 12/17/18 12: 01 Sodium Chloride IV 83 mls/hr Q12H ALEJANDRA Administration Mupirocin 1 applic 12/15/18 10:00 12/17/18 10:32 Bactroban Ointment (For Decolonization) - NS 12/20/18 09:59 1 applic BID ALEJANDRA Administration ASSESSMENT/PLAN: Patient is an 83 year old male who presented with acute renal failure and hyperkalemia associated with bradycardia and hypotensive. Patient admitted for further monitoring and management. Severe HyperKalemia w/ EKG changes -Improved -Likely from PO KCL and ROYA. Will need to hold for now -Continue to monitor BMP Acute Renal Failure -Likely from poor oral intake, use of KCl, and ROYA. -Renal U/S revealed no acute pathology -Continue IV fluids with 1/2NS @83mls/hr -Strict I&O's -Avoid nephrotoxic medications -Renally dose medications. Metabolic Acidosis -Improving -Likely secondary to Renal failure -Continue Sodium Bicarbonate with 1/2NS Sinus Bradycardia/Hypotension -Resolved after resolution of hyperkalemia -Continue cardiac monitoring CAD s/p stenting -On no medications HTN -Had hypotensive episodes and still borderline hypotensive -Will hold medications for now -Continue to monitor BP Anemia of Chronic Disease -Stable -Iron panel pending -Might benefit from ZAYNAB Dementia -On no medications HLD -Continue Lipitor 10mg HS F/E/N -IV NS@83mls/hr -Hypomagnesemia. replete and repeat -Renal diet Prophylaxis -Heparin 5000 units sq TID for DVT -No GI required Disposition -Full code -PT for deconditioning -Transfer to floors. Continue Bicarb Radha Aldrich [id number] Visit type - Emergency Visit Emergency Visit: Yes ED Registration Date: 12/14/18 Care time: The patient presented to the Emergency Department on the above date and was hospitalized for further evaluation of their emergent condition. - New Patient This patient is new to me today: No - Critical Care Critical Care patient: No
--- NOTE | 2018-12-17 13:22 | PN ---
Teaching Attending Note Name of Resident: Radha Aldrich ATTENDING PHYSICIAN STATEMENT I saw and evaluated the patient. I reviewed the resident's note and discussed the case with the resident. I agree with the resident's findings and plan as documented. SUBJECTIVE: Mr Alcocer is without complaint today. Denies knee pain today. No cp, sob, n/v OBJECTIVE: Last Vital Signs Temp Pulse Resp BP Pulse Ox 37.1 C 90 20 119/73 97 12/17/18 12:00 12/17/18 12:00 12/17/18 12:00 12/17/18 12:00 12/17/18 09:00 Gen: nad Pulm: ctab w/o w/r/r CV: rrr w/o m/r/g Abd: +bs, s/nt/nd Ext: no c/c/e CBC, BMP 12/17/18 05:30 12/17/18 05:30 ASSESSMENT AND PLAN: (1) Acute kidney failure Assessment/Plan: -nephrology note reviewed -continue 1/2 NS bicarb gtt -improving Code(s): N17.9 - ACUTE KIDNEY FAILURE, UNSPECIFIED (2) Hyperkalemia Assessment/Plan: -resolved with medical management -hold potassium supplements and ARB Code(s): E87.5 - HYPERKALEMIA (3) Hypotension Assessment/Plan: -resolved Code(s): I95.9 - HYPOTENSION, UNSPECIFIED (4) Dementia Assessment/Plan: -stable Code(s): F03.90 - UNSPECIFIED DEMENTIA WITHOUT BEHAVIORAL DISTURBANCE (5) HTN (hypertension) Assessment/Plan: -currently normotensive Code(s): I10 - ESSENTIAL (PRIMARY) HYPERTENSION (6) Hyperlipemia Assessment/Plan: -continue statin Code(s): E78.5 - HYPERLIPIDEMIA, UNSPECIFIED (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 -awaiting anemia labs (8) Hypomagnesemia -replace Problem List - Problems (1) Acute kidney failure Code(s): N17.9 - ACUTE KIDNEY FAILURE, UNSPECIFIED (2) Hyperkalemia Code(s): E87.5 - HYPERKALEMIA (3) Hypotension Code(s): I95.9 - HYPOTENSION, UNSPECIFIED (4) Dementia Code(s): F03.90 - UNSPECIFIED DEMENTIA WITHOUT BEHAVIORAL DISTURBANCE (5) HTN (hypertension) Code(s): I10 - ESSENTIAL (PRIMARY) HYPERTENSION (6) Hyperlipemia Code(s): E78.5 - HYPERLIPIDEMIA, UNSPECIFIED (7) Anemia Code(s): D64.9 - ANEMIA, UNSPECIFIED Qualifiers: Anemia type: due to chronic kidney disease Chronic kidney disease stage: stage 4 (severe) Qualified Code(s): N18.4 - Chronic kidney disease, stage 4 ( severe); D63.1 - Anemia in chronic kidney disease
--- NOTE | 2018-12-17 13:50 | CONSULT ---
Consult Consult Specialty:: Podiatry Reason for Consultation:: Painful elongated hypertrophic nails b/l feet. - History of Present Illness Chief Complaint: Painful elongated nails History of Present Illness: Over 6 months. 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 Home Medications - Allergies Allergies/Adverse Reactions: Allergies Allergy/AdvReac Type Severity Reaction Status Date / Time No Known Allergies Allergy Verified 05/17/15 11:01 - Home Medications Home Medications: Ambulatory Orders Cholecalciferol (Vitamin D3) [Vitamin D3] 1,000 unit PO DAILY 05/17/15 Metoprolol Tartrate [Lopressor -] 25 mg PO BID 05/17/15 Quinapril HCl [Accupril -] 20 mg PO DAILY 05/17/15 Simvastatin 10 mg PO DAILY 05/17/15 Terazosin HCl 5 mg PO DAILY 05/17/15 Furosemide [Lasix -] 20 mg PO DAILY 12/14/18 Potassium Bicarbonate/Cit AC [Potassium 25 Meq Tablet Eff] 25 meq PO DAILY 12/14 Family Disease History - Family Disease History Family Disease History: Other: Brother ( but pt does not know the cause) Physical Exam Vital Signs: Vital Signs Temperature 98.7 F 12/17/18 12:00 Pulse Rate 90 12/17/18 12:00 Respiratory Rate 20 12/17/18 12:00 Blood Pressure 119/73 12/17/18 12:00 O2 Sat by Pulse Oximetry (%) 97 12/17/18 09:00 Extremities: Yes: Other (+tender hypertrophic mycotic nails with subungual debris, +inflammed nail beds, +distal seperation of nail from bed, no wounds on feet) Labs: CBC, BMP 12/17/18 05:30 12/17/18 05:30 Assessment/Plan onychomycosis pain Debride nails x 10. Foot care education given. Foot care q8 weeks. Please reconsult if necessary.
--- NOTE | 2018-12-17 16:57 | PN ---
Progress Note (short form) - Note Progress Note: PULM/CCM Pt Seen & Examined in the ICU. Renal Fail seems to be stabilizing. Pt in NAD. Active Medications Acetaminophen (Tylenol -) 650 mg PO Q6H PRN PRN Reason: PAIN LEVEL 1-5 Last Admin: 12/16/18 09:47 Dose: 650 mg Atorvastatin Calcium (Lipitor -) 10 mg PO HS [facility] Last Admin: 12/16/18 21:03 Dose: 10 mg Chlorhexidine Gluconate (Hibiclens For Decolonization -) 1 applic TP HS [facility] Last Admin: 12/16/18 21:03 Dose: 1 applic Heparin Sodium (Porcine) (Heparin -) 5,000 unit SQ BID [facility] Last Admin: 12/16/18 21:02 Dose: 5,000 unit Sodium Bicarbonate 50 meq/ (Sodium Chloride) 1,050 mls @ 83 mls/hr IV Q12H [facility] Last Admin: 12/16/18 23:30 Dose: 83 mls/hr Mupirocin (Bactroban Ointment (For Decolonization) -) 1 applic NS BID [facility] Stop: 12/20/18 09:59 Last Admin: 12/16/18 21:02 Dose: 1 applic Vital Signs Period Temp Pulse Resp BP Sys/Malin Pulse Ox Last 24 Hr 98.7 F-99.9 F 68-90 15-22 109-140/54-73 97-97 Intake & Output 12/14/18 12/15/18 12/16/18 12/17/18 23:59 23:59 23:59 23:59 Intake Total 3207 3646 1046 Output Total 6592 837 9403 Balance 1307 2846 -654 Weight 59.903 kg 61.689 kg 61.87 kg PULM: CTAB CV: nml S1, S2, RR ABD: +BS S/S X4Q EXT: + Pulses, WWPX4, (-) edema NEURO: CA+OX3 CBC, BMP 12/17/18 05:30 12/17/18 05:30 Microbiology 12/14/18 18:56 Urine - Urine Pierre Urine Culture - Final NO GROWTH OBTAINED STUDIES TO NOTE: 12/14 RENAL US: No hydronephrosis is seen. The kidneys demonstrate no definite sonographic abnormality. Pierre catheter in place. Prostate enlargement. CXR 2/7: A single AP view of the chest is been submitted. Since 05/17/2015 the patient is slightly more rotated to the left. There is a weak inspiration with resultant prominent sclerotic knob, normal fawn and prominent heart. The lungs are clear. The angles are sharp and the soft tissues are intact. An acute process is not seen. Correlation recommended. ASSESS: RADHA Severe Hyperkalemia w/ EKG changes HTN HLD CAD BPH Renal insufficiency Anemia PLAN: Hold ROYA O2 as needed Strict I's & O's Replete e-lytes prn PO as tolerated Transfer --> Tele Renal follow up DGL, ACNP-BC [facility] ICU PULM/CCM [id number]
[2018-12-17] MEDS: SENNOSIDES 8.6MG TABLET (FP) PO SCH (22:37)
[2018-12-17] MEDS: ACETAMINOPHEN 325 MG TABLET (FP) PO PRN (22:37)
[2018-12-17] MEDS: ATORVASTATIN CA 10 MG TABLET (FP) PO SCH (22:37)
[2018-12-17] MEDS: CHLORHEXIDINE GLUCONATE 4% CLEANSER FOR DECOLONIZATION TP SCH (22:42)
[2018-12-18] MEDS: SODIUM BICARBONATE 8.4% - 50 MEQ in SODIUM CHLORIDE 0.45% 1,000 ML IV SCH ×2 (02:35→10:20)
[2018-12-18 06:07] LABS: SERUM IRON SATURATION 5 % (15-55); TOTAL IRON BINDING CAPACITY 184 ug/dL (250-450); UIBC 175 ug/dL (111-343)
[2018-12-18 06:21] LABS: HEMATOCRIT 22.6 % (35.4-49); HEMOGLOBIN 7.9 GM/dL (11.7-16.9); MCH 32.4 pg (25.7-33.7); MCHC 34.9 g/dl (32.0-35.9); MEAN CELL VOLUME 92.9 fl (80-96); MEAN PLT VOLUME 10.2 fl (7.5-11.1); PLATELET COUNT 90 K/MM3 (134-434); RBC 2.43 M/mm3 (4.00-5.60); RDW 14.4 % (11.9-15.9); WHITE BLOOD COUNT 7.9 K/mm3 (4.0-10.0)
[2018-12-18 06:48] LABS: ANION GAP 7 MMOL/L (8-16); BLOOD UREA NITROGEN 64 mg/dL (7-18); CALCIUM 7.1 mg/dL (8.5-10.1); CHLORIDE 115 mmol/L (98-107); CO2 21 mmol/L (21-32); GLUCOSE,RANDOM 80 mg/dL (74-106); MAGNESIUM 1.5 mg/dL (1.8-2.4); PHOSPHOROUS 2.3 mg/dL (2.5-4.9); POTASSIUM 3.8 mmol/L (3.5-5.1); SODIUM 142 mmol/L (136-145)
[2018-12-18] MEDS: HEPARIN NA (PORCINE) 5,000 UNITS/ML 1ML VIAL SQ SCH ×2 (10:17→21:15)
[2018-12-18] MEDS: ACETAMINOPHEN 325 MG TABLET (FP) PO PRN ×2 (10:25→17:24)
--- NOTE | 2018-12-18 12:25 | PN ---
Progress Note, Physician History of Present Illness: Pt seen and examined at bedside. He is awake and alert. He denies shortness of breath. - Current Medication List Current Medications: Active Medications Acetaminophen (Tylenol -) 650 mg PO Q6H PRN PRN Reason: PAIN LEVEL 1-5 Last Admin: 12/18/18 10:25 Dose: 650 mg Atorvastatin Calcium (Lipitor -) 10 mg PO [facility] Last Admin: 12/17/18 22:37 Dose: 10 mg Docusate Sodium (Colace -) 100 mg PO BID PRN PRN Reason: CONSTIPATION Heparin Sodium (Porcine) (Heparin -) 5,000 unit SQ BID [facility] Last Admin: 12/18/18 10:17 Dose: 5,000 unit Sodium Bicarbonate 50 meq/ (Sodium Chloride) 1,050 mls @ 83 mls/hr IV Q12H [facility] Last Admin: 12/18/18 10:20 Dose: Not Given Senna (Senna -) 1 tab PO [facility] Last Admin: 12/17/18 22:37 Dose: 1 tab - Objective Vital Signs: Vital Signs Temperature 99.8 F H 12/18/18 05:00 Pulse Rate 99 H 12/18/18 05:00 Respiratory Rate 20 12/18/18 05:00 Blood Pressure 105/67 12/18/18 05:00 O2 Sat by Pulse Oximetry (%) 100 12/17/18 21:45 Constitutional: Yes: Calm Eyes: Yes: Conjunctiva Clear HENT: Yes: Atraumatic Cardiovascular: Yes: S1, S2 Respiratory: Yes: CTA Bilaterally Gastrointestinal: Yes: Soft Genitourinary: Yes: Smith Present Musculoskeletal: Yes: WNL Edema: LLE: Trace, RLE: Trace Neurological: Yes: Oriented Psychiatric: Yes: Oriented Labs: CBC, BMP 12/18/18 05:30 12/18/18 05:30 INR, PTT INR 1.09 (0.83-1.09) 12/16/18 05:30 Problem List - Problems (1) Acute kidney failure Code(s): N17.9 - ACUTE KIDNEY FAILURE, UNSPECIFIED (2) Bradycardia Code(s): R00.1 - BRADYCARDIA, UNSPECIFIED (3) Hyperkalemia Code(s): E87.5 - HYPERKALEMIA (4) Hypotension Code(s): I95.9 - HYPOTENSION, UNSPECIFIED (5) HTN (hypertension) Code(s): I10 - ESSENTIAL (PRIMARY) HYPERTENSION Assessment/Plan Current Medications Generic Name Dose Route Start Last Admin Trade Name Freq PRN Reason Stop Dose Admin Acetaminophen 650 mg 12/16/18 09:37 12/18/18 10:25 Tylenol - PO 650 mg Q6H PRN Administration PAIN LEVEL 1-5 Atorvastatin Calcium 10 mg 12/15/18 22:00 12/17/18 22:37 Lipitor - PO 10 mg HS ALEJANDRA Administration Docusate Sodium 100 mg 12/17/18 12:51 Colace - PO BID PRN CONSTIPATION Heparin Sodium (Porcine) 5,000 unit 12/18/18 10:00 12/18/18 10:17 Heparin - SQ 5,000 unit BID ALEJANDRA Administration Sodium Bicarbonate 50 meq/ 1,050 mls @ 83 mls/hr 12/16/18 10:15 12/18/18 10: 20 Sodium Chloride IV Not Given Q12H ALEJANDRA Senna 1 tab 12/17/18 22:00 12/17/18 22:37 Senna - PO 1 tab HS ALEJANDRA Administration Laboratory Tests 12/16/18 05:30 DEON Screen Pending Impression 1. RADHA 2. hyperkalemia 3. metabolic acidosis 4. HLD 5. HTN 6. bradycardia 7. weight loss 8. CAD Plan - change fluids to 1/2 ns - can d/c smith and give voiding trial - cont to monitor renal function, which has been improving - replace magnesium - keep narendra on hold - follow deon - initial ua neg for blood or protein, repeat ua - no indication for HD at this point - discussed with medical team - avoid nsaids Dr Jackson
[2018-12-18] MEDS ORDERED: MAGNESIUM SULF 50% (8.12 MEQ/2 ML-1 GM VIAL) IVPB ONE (13:00)
[2018-12-18] MEDS: SODIUM CHLORIDE 0.45% 1,000 ML IV SCH ×2 (13:00→13:53)
[2018-12-18] MEDS: NAPH,MB-DB/K PH,MBDB POWDER PACKET PO SCH ×2 (13:25→21:14)
[2018-12-18 16:18] LABS: URINE APPEARANCE SLCLOUDY; URINE BILIRUBIN NEGATIVE (<2.0 mg/dL); URINE COLOR LTYELLOW; URINE GLUCOSE (UA) NEGATIVE (NEGATIVE); URINE KETONE NEGATIVE (NEGATIVE); URINE LEUK ESTERASE 3+ (NEGATIVE); URINE NITRITE POSITIVE (NEGATIVE); URINE PROTEIN 1+ (NEGATIVE); URINE UROBILINOGEN NEGATIVE mg/dL (0.2-1.0)
[2018-12-18 16:57] LABS: URINE BACTERIA RARE /hpf (NONE SEEN); URINE MUCUS RARE
--- NOTE | 2018-12-18 17:21 | PN ---
Progress Note, Physician Chief Complaint: Mr Alcocer is without complaint today. No cp, sob, n/v. - Current Medication List Current Medications: Active Medications Acetaminophen (Tylenol -) 650 mg PO Q6H PRN PRN Reason: PAIN LEVEL 1-5 Last Admin: 12/18/18 10:25 Dose: 650 mg Atorvastatin Calcium (Lipitor -) 10 mg PO HS [facility] Last Admin: 12/17/18 22:37 Dose: 10 mg Docusate Sodium (Colace -) 100 mg PO BID PRN PRN Reason: CONSTIPATION Heparin Sodium (Porcine) (Heparin -) 5,000 unit SQ BID [facility] Last Admin: 12/18/18 10:17 Dose: 5,000 unit Sodium Chloride (1/2 Normal Saline) 1,000 mls @ 75 mls/hr IV ASDIR [facility] Last Admin: 12/18/18 13:53 Dose: Not Given Potassium Phos/Sodium Phos (Phos-Nak Packet -) 1 packet PO BID [facility] Stop: 12/18/18 22:01 Last Admin: 12/18/18 13:25 Dose: 1 packet Senna (Senna -) 1 tab PO [facility] Last Admin: 12/17/18 22:37 Dose: 1 tab - Objective Vital Signs: Vital Signs Temperature 37.7 C H 12/18/18 14:10 Pulse Rate 89 12/18/18 14:10 Respiratory Rate 20 12/18/18 14:10 Blood Pressure 114/60 12/18/18 14:10 O2 Sat by Pulse Oximetry (%) 100 12/18/18 09:00 Constitutional: Yes: Well Nourished, No Distress, Calm Cardiovascular: Yes: Regular Rate and Rhythm. No: Gallop, Murmur, Rub Respiratory: Yes: Regular, CTA Bilaterally. No: Rales, Rhonchi, Wheezes Gastrointestinal: Yes: Normal Bowel Sounds, Soft. No: Distention, Tenderness Extremities: Yes: WNL Edema: No Labs: CBC, BMP 12/18/18 05:30 12/18/18 05:30 INR, PTT INR 1.09 (0.83-1.09) 12/16/18 05:30 Problem List - Problems (1) Acute kidney failure Code(s): N17.9 - ACUTE KIDNEY FAILURE, UNSPECIFIED (2) Hyperkalemia Code(s): E87.5 - HYPERKALEMIA (3) Hypotension Code(s): I95.9 - HYPOTENSION, UNSPECIFIED (4) Dementia Code(s): F03.90 - UNSPECIFIED DEMENTIA WITHOUT BEHAVIORAL DISTURBANCE (5) HTN (hypertension) Code(s): I10 - ESSENTIAL (PRIMARY) HYPERTENSION (6) Hyperlipemia Code(s): E78.5 - HYPERLIPIDEMIA, UNSPECIFIED (7) Anemia Code(s): D64.9 - ANEMIA, UNSPECIFIED Qualifiers: Anemia type: due to chronic kidney disease Chronic kidney disease stage: stage 4 (severe) Qualified Code(s): N18.4 - Chronic kidney disease, stage 4 ( severe); D63.1 - Anemia in chronic kidney disease Assessment/Plan (1) Acute kidney failure Assessment/Plan: -case d/w Dr Jackson -IVF changed to 11/08 NS -improving -smith removed, voiding trial Code(s): N17.9 - ACUTE KIDNEY FAILURE, UNSPECIFIED (2) Hyperkalemia Assessment/Plan: -resolved with medical management -hold potassium supplements and ARB Code(s): E87.5 - HYPERKALEMIA (3) Hypotension Assessment/Plan: -currently normotensive -continue hydration Code(s): I95.9 - HYPOTENSION, UNSPECIFIED (4) Dementia Assessment/Plan: -stable Code(s): F03.90 - UNSPECIFIED DEMENTIA WITHOUT BEHAVIORAL DISTURBANCE (5) HTN (hypertension) Assessment/Plan: -normal -monitor -on IVF Code(s): I10 - ESSENTIAL (PRIMARY) HYPERTENSION (6) Hyperlipemia Assessment/Plan: -continue statin Code(s): E78.5 - HYPERLIPIDEMIA, UNSPECIFIED (7) AOCD -monitor
[2018-12-18] MEDS: SENNOSIDES 8.6MG TABLET (FP) PO SCH (21:14)
[2018-12-18] MEDS: ATORVASTATIN CA 10 MG TABLET (FP) PO SCH (21:14)
[2018-12-19] MEDS: SODIUM CHLORIDE 0.45% 1,000 ML IV SCH (07:00)
[2018-12-19 07:14] LABS: BASO % 0.6 % (0-2.0); EOS % 3.2 % (0-4.5); HEMATOCRIT 22.6 % (35.4-49); HEMOGLOBIN 7.8 GM/dL (11.7-16.9); LYMPH % 10.3 % (8-40); MCHC 34.4 g/dl (32.0-35.9); MEAN CELL VOLUME 93.1 fl (80-96); MONO % 10.6 % (3.8-10.2); NEUT % 75.3 % (42.8-82.8); PLATELET COUNT 108 K/MM3 (134-434); RBC 2.43 M/mm3 (4.00-5.60); RDW 14.8 % (11.9-15.9)
[2018-12-19 07:48] LABS: ALBUMIN 2.1 g/dl (3.4-5.0); ALK PHOS 45 U/L (45-117); ANION GAP 7 MMOL/L (8-16); BILIRUBIN,TOTAL 0.4 mg/dL (0.2-1); BLOOD UREA NITROGEN 63 mg/dL (7-18); CALCIUM 7.4 mg/dL (8.5-10.1); CHLORIDE 112 mmol/L (98-107); CO2 22 mmol/L (21-32); CREATININE 2.8 mg/dL (0.55-1.3); GLUCOSE,RANDOM 84 mg/dL (74-106); MAGNESIUM 1.8 mg/dL (1.8-2.4); PHOSPHOROUS 2.8 mg/dL (2.5-4.9); POTASSIUM 4.1 mmol/L (3.5-5.1); SGOT/AST 15 U/L (15-37); SGPT/ALT 22 U/L (13-61); SODIUM 140 mmol/L (136-145); TOT PROT 5.1 g/dl (6.4-8.2)
[2018-12-19] MEDS: HEPARIN NA (PORCINE) 5,000 UNITS/ML 1ML VIAL SQ SCH ×2 (10:00→21:53)
[2018-12-19] MEDS: ACETAMINOPHEN 325 MG TABLET (FP) PO PRN (10:03)
--- NOTE | 2018-12-19 12:20 | PN ---
Progress Note, Physician Chief Complaint: Mr Alcocer is without complaint today. No cp, sob, n/v. Says he wants to get up and walk with a walker. - Current Medication List Current Medications: Active Medications Acetaminophen (Tylenol -) 650 mg PO Q6H PRN PRN Reason: PAIN LEVEL 1-5 Last Admin: 12/19/18 10:03 Dose: 650 mg Atorvastatin Calcium (Lipitor -) 10 mg PO HS [facility] Last Admin: 12/18/18 21:14 Dose: 10 mg Docusate Sodium (Colace -) 100 mg PO BID PRN PRN Reason: CONSTIPATION Heparin Sodium (Porcine) (Heparin -) 5,000 unit SQ BID [facility] Last Admin: 12/19/18 10:00 Dose: 5,000 unit Sodium Chloride (1/2 Normal Saline) 1,000 mls @ 75 mls/hr IV ASDIR [facility] Last Admin: 12/18/18 13:53 Dose: Not Given Senna (Senna -) 1 tab PO HS [facility] Last Admin: 12/18/18 21:14 Dose: 1 tab - Objective Vital Signs: Vital Signs Temperature 37.2 C 12/19/18 10:00 Pulse Rate 90 12/19/18 10:00 Respiratory Rate 20 12/19/18 10:00 Blood Pressure 116/67 12/19/18 10:00 O2 Sat by Pulse Oximetry (%) 98 12/19/18 09:00 Constitutional: Yes: Well Nourished, No Distress, Calm Cardiovascular: Yes: Regular Rate and Rhythm. No: Gallop, Murmur, Rub Respiratory: Yes: Regular, CTA Bilaterally. No: Rales, Rhonchi, Wheezes Gastrointestinal: Yes: Normal Bowel Sounds, Soft. No: Distention, Tenderness Extremities: Yes: WNL Edema: No Labs: CBC, BMP 12/19/18 05:20 12/19/18 05:20 INR, PTT INR 1.09 (0.83-1.09) 12/16/18 05:30 Problem List - Problems (1) Acute kidney failure Code(s): N17.9 - ACUTE KIDNEY FAILURE, UNSPECIFIED (2) Hyperkalemia Code(s): E87.5 - HYPERKALEMIA (3) Hypotension Code(s): I95.9 - HYPOTENSION, UNSPECIFIED (4) Dementia Code(s): F03.90 - UNSPECIFIED DEMENTIA WITHOUT BEHAVIORAL DISTURBANCE (5) HTN (hypertension) Code(s): I10 - ESSENTIAL (PRIMARY) HYPERTENSION (6) Hyperlipemia Code(s): E78.5 - HYPERLIPIDEMIA, UNSPECIFIED (7) Anemia Code(s): D64.9 - ANEMIA, UNSPECIFIED Qualifiers: Anemia type: due to chronic kidney disease Chronic kidney disease stage: stage 4 (severe) Qualified Code(s): N18.4 - Chronic kidney disease, stage 4 ( severe); D63.1 - Anemia in chronic kidney disease Assessment/Plan (1) Acute kidney failure Assessment/Plan: -continues to improve -continue IVF per nephrology Code(s): N17.9 - ACUTE KIDNEY FAILURE, UNSPECIFIED (2) Hyperkalemia Assessment/Plan: -resolved with medical management -hold potassium supplements and ARB Code(s): E87.5 - HYPERKALEMIA (3) Hypotension Assessment/Plan: -currently normotensive -continue hydration Code(s): I95.9 - HYPOTENSION, UNSPECIFIED (4) Dementia Assessment/Plan: -stable Code(s): F03.90 - UNSPECIFIED DEMENTIA WITHOUT BEHAVIORAL DISTURBANCE (5) HTN (hypertension) Assessment/Plan: -normal -monitor -on IVF Code(s): I10 - ESSENTIAL (PRIMARY) HYPERTENSION (6) Hyperlipemia Assessment/Plan: -continue statin Code(s): E78.5 - HYPERLIPIDEMIA, UNSPECIFIED (7) AOCD -monitor
--- NOTE | 2018-12-19 12:28 | PN ---
Progress Note, Physician History of Present Illness: Pt seen and examined at bedside. He is awake and alert. He says he feels well and he wants to go home. He does not want any more workup in the hospital. He says he will follow up with his physicians as an outpt. - Current Medication List Current Medications: Active Medications Acetaminophen (Tylenol -) 650 mg PO Q6H PRN PRN Reason: PAIN LEVEL 1-5 Last Admin: 12/19/18 10:03 Dose: 650 mg Atorvastatin Calcium (Lipitor -) 10 mg PO HS [facility] Last Admin: 12/18/18 21:14 Dose: 10 mg Docusate Sodium (Colace -) 100 mg PO BID PRN PRN Reason: CONSTIPATION Heparin Sodium (Porcine) (Heparin -) 5,000 unit SQ BID [facility] Last Admin: 12/19/18 10:00 Dose: 5,000 unit Sodium Chloride (1/2 Normal Saline) 1,000 mls @ 75 mls/hr IV ASDIR [facility] Last Admin: 12/18/18 13:53 Dose: Not Given Senna (Senna -) 1 tab PO [facility] Last Admin: 12/18/18 21:14 Dose: 1 tab - Objective Vital Signs: Vital Signs Temperature 98.9 F 12/19/18 10:00 Pulse Rate 90 12/19/18 10:00 Respiratory Rate 20 12/19/18 10:00 Blood Pressure 116/67 12/19/18 10:00 O2 Sat by Pulse Oximetry (%) 98 12/19/18 09:00 Constitutional: Yes: Calm Eyes: Yes: Conjunctiva Clear HENT: Yes: Atraumatic Cardiovascular: Yes: S1, S2 Respiratory: Yes: CTA Bilaterally Gastrointestinal: Yes: Normal Bowel Sounds, Soft Genitourinary: Yes: WNL Musculoskeletal: Yes: WNL Edema: No Neurological: Yes: Oriented Psychiatric: Yes: Oriented Labs: CBC, BMP 12/19/18 05:20 12/19/18 05:20 INR, PTT INR 1.09 (0.83-1.09) 12/16/18 05:30 Problem List - Problems (1) Acute kidney failure Code(s): N17.9 - ACUTE KIDNEY FAILURE, UNSPECIFIED (2) Bradycardia Code(s): R00.1 - BRADYCARDIA, UNSPECIFIED (3) Hyperkalemia Code(s): E87.5 - HYPERKALEMIA (4) Hypotension Code(s): I95.9 - HYPOTENSION, UNSPECIFIED (5) HTN (hypertension) Code(s): I10 - ESSENTIAL (PRIMARY) HYPERTENSION Assessment/Plan Current Medications Generic Name Dose Route Start Last Admin Trade Name Freq PRN Reason Stop Dose Admin Acetaminophen 650 mg 12/16/18 09:37 12/19/18 10:03 Tylenol - PO 650 mg Q6H PRN Administration PAIN LEVEL 1-5 Atorvastatin Calcium 10 mg 12/15/18 22:00 12/18/18 21:14 Lipitor - PO 10 mg HS ALEJANDRA Administration Docusate Sodium 100 mg 12/17/18 12:51 Colace - PO BID PRN CONSTIPATION Heparin Sodium (Porcine) 5,000 unit 12/18/18 10:00 12/19/18 10:00 Heparin - SQ 5,000 unit BID ALEJANDRA Administration Sodium Chloride 1,000 mls @ 75 mls/hr 12/18/18 12:30 12/18/18 13:53 1/2 Normal Saline IV Not Given ASDIR ALEJANDRA Senna 1 tab 12/17/18 22:00 12/18/18 21:14 Senna - PO 1 tab HS ALEJANDRA Administration Laboratory Tests 12/16/18 05:30 DEON Screen Positive H DEON Homogeneous Pattern 1:80 Impression 1. RADHA 2. hyperkalemia 3. metabolic acidosis 4. HLD 5. HTN 6. bradycardia 7. weight loss 8. CAD Plan - renal function continues to improve - deon is positive, will need more workup and rheum eval - pt requesting to be discharged - can see pt in office - keep narendra on hold - will need to check spep anca and antidna - repeat ua was taken from luis Jackson
[2018-12-19] MEDS: SENNOSIDES 8.6MG TABLET (FP) PO SCH (21:53)
[2018-12-19] MEDS: ATORVASTATIN CA 10 MG TABLET (FP) PO SCH (21:53)
--- NOTE | 2018-12-20 10:33 | PN ---
Progress Note, Physician Chief Complaint: Pt lying in bed in no acute distress. Reports feeling well.Denies any chest pain , sob, n/v/d - Current Medication List Current Medications: Active Medications Acetaminophen (Tylenol -) 650 mg PO Q6H PRN PRN Reason: PAIN LEVEL 1-5 Last Admin: 12/19/18 10:03 Dose: 650 mg Atorvastatin Calcium (Lipitor -) 10 mg PO HS [facility] Last Admin: 12/19/18 21:53 Dose: 10 mg Docusate Sodium (Colace -) 100 mg PO BID PRN PRN Reason: CONSTIPATION Heparin Sodium (Porcine) (Heparin -) 5,000 unit SQ BID [facility] Last Admin: 12/19/18 21:53 Dose: 5,000 unit Sodium Chloride (1/2 Normal Saline) 1,000 mls @ 75 mls/hr IV ASDIR [facility] Last Admin: 12/19/18 07:00 Dose: 75 mls/hr Senna (Senna -) 1 tab PO [facility] Last Admin: 12/19/18 21:53 Dose: 1 tab - Objective Vital Signs: Vital Signs Temperature 99.7 F H 12/20/18 09:11 Pulse Rate 92 H 12/20/18 09:11 Respiratory Rate 18 12/20/18 09:11 Blood Pressure 129/56 L 12/20/18 09:11 O2 Sat by Pulse Oximetry (%) 95 12/20/18 09:00 Constitutional: Yes: Well Nourished, No Distress, Calm Cardiovascular: Yes: Regular Rate and Rhythm Respiratory: Yes: WNL, Regular, CTA Bilaterally. No: Accessory Muscle Use, SOB , Tachypnea, Wheezes Gastrointestinal: Yes: WNL, Normal Bowel Sounds, Soft. No: Distention, Tenderness Genitourinary: Yes: WNL Edema: Yes Edema: LLE: 1+, RLE: 2+ Neurological: Yes: WNL, Alert, Oriented, Confusion (forgetful) Psychiatric: Yes: WNL, Alert, Oriented Labs: CBC, BMP 12/19/18 05:20 12/19/18 05:20 INR, PTT INR 1.09 (0.83-1.09) 12/16/18 05:30 Assessment/Plan (1) Acute kidney failure Assessment/Plan: improving continue IVF per nephrology Code(s): N17.9 - ACUTE KIDNEY FAILURE, UNSPECIFIED (2) Hyperkalemia Assessment/Plan: resolved with medical management hold ARB, potassium supplements Code(s): E87.5 - HYPERKALEMIA (3) Hypotension Assessment/Plan: resolved Code(s): I95.9 - HYPOTENSION, UNSPECIFIED (4) Dementia Assessment/Plan: stable fall precautions Code(s): F03.90 - UNSPECIFIED DEMENTIA WITHOUT BEHAVIORAL DISTURBANCE (5) HTN (hypertension) Assessment/Plan: controlled metoprolol restarted lasix held Code(s): I10 - ESSENTIAL (PRIMARY) HYPERTENSION (6) Hyperlipemia Assessment/Plan: continue statin Code(s): E78.5 - HYPERLIPIDEMIA, UNSPECIFIED (7) Anemia of chronic disease Assessment/Plan: stable, monitor cbc Code(s): D63.8 - ANEMIA IN OTHER CHRONIC DISEASES CLASSIFIED ELSEWHERE (8) Fever Assessment/Plan: low grade temps +urinary frequency suspect possible UTI repeat UA/UC empiric ceftriaxone blood cultures ordered chest xray ordered Code(s): R50.9 - FEVER, UNSPECIFIED Qualifiers: Encounter type: initial encounter (9) BPH (benign prostatic hyperplasia) Assessment/Plan: restart terazosin as above Code(s): N40.0 - BENIGN PROSTATIC HYPERPLASIA WITHOUT LOWER URINRY TRACT SYMP Qualifiers: Lower urinary tract symptom presence: symptoms present Lower urinary tract symptom detail: urinary frequency Qualified Code(s): N40.1 - Benign prostatic hyperplasia with lower urinary tract symptoms; R35.0 - Frequency of micturition (10) SUSHILA positive Assessment/Plan: rheum consult pending Code(s): R76.8 - OTHER SPECIFIED ABNORMAL IMMUNOLOGICAL FINDINGS IN SERUM
[2018-12-20] MEDS: HEPARIN NA (PORCINE) 5,000 UNITS/ML 1ML VIAL SQ SCH ×2 (10:36→22:39)
[2018-12-20] MEDS ORDERED: MAGNESIUM SULF 50% (8.12 MEQ/2 ML-1 GM VIAL) IVPB ONE (10:45)
[2018-12-20] MEDS ORDERED: cefTRIAXone SODIUM 1 GM VIAL ONE (11:50)
[2018-12-20] MEDS ORDERED: DEXTROSE 5%-WATER - 50 ML IVPB ONE (11:51)
[2018-12-20 12:15] LABS: URINE APPEARANCE CLEAR; URINE BILIRUBIN NEGATIVE (<2.0 mg/dL); URINE COLOR LTYELLOW; URINE GLUCOSE (UA) NEGATIVE (NEGATIVE); URINE KETONE NEGATIVE (NEGATIVE); URINE LEUK ESTERASE TRACE (NEGATIVE); URINE NITRITE NEGATIVE (NEGATIVE); URINE PROTEIN NEGATIVE (NEGATIVE); URINE UROBILINOGEN NEGATIVE mg/dL (0.2-1.0)
[2018-12-20 12:36] LABS: EPI CELLS RARE /HPF (FEW)
[2018-12-20] MEDS: SODIUM CHLORIDE 0.45% 1,000 ML IV SCH (12:40)
[2018-12-20] MEDS: CEFTRIAXONE 1 GM in DEXTROSE 5%-WATER - 50 ML IVPB SCH (12:41)
[2018-12-20] MEDS: ACETAMINOPHEN 325 MG TABLET (FP) PO PRN (12:46)
[2018-12-20] MEDS: TERAZOSIN HCL 5 MG CAPSULE PO SCH (13:10)
--- NOTE | 2018-12-20 13:30 | PN ---
Progress Note, Physician History of Present Illness: Pt seen and examined at bedside. He denies shortness of breath. - Current Medication List Current Medications: Active Medications Acetaminophen (Tylenol -) 650 mg PO Q6H PRN PRN Reason: PAIN LEVEL 1-5 Last Admin: 12/20/18 12:46 Dose: 650 mg Atorvastatin Calcium (Lipitor -) 10 mg PO HS [facility] Last Admin: 12/19/18 21:53 Dose: 10 mg Docusate Sodium (Colace -) 100 mg PO BID PRN PRN Reason: CONSTIPATION Heparin Sodium (Porcine) (Heparin -) 5,000 unit SQ BID [facility] Last Admin: 12/20/18 10:36 Dose: 5,000 unit Ceftriaxone Sodium 1 gm/ (Dextrose) 50 mls @ 100 mls/hr IVPB DAILY [facility]; Protocol Last Admin: 12/20/18 12:41 Dose: 100 mls/hr Metoprolol Tartrate (Lopressor -) 25 mg PO BID [facility] Senna (Senna -) 1 tab PO HS [facility] Last Admin: 12/19/18 21:53 Dose: 1 tab Terazosin HCl (Hytrin -) 5 mg PO DAILY [facility] Last Admin: 12/20/18 13:10 Dose: 5 mg - Objective Vital Signs: Vital Signs Temperature 99.7 F H 12/20/18 09:11 Pulse Rate 92 H 12/20/18 09:11 Respiratory Rate 18 12/20/18 09:11 Blood Pressure 129/56 L 12/20/18 09:11 O2 Sat by Pulse Oximetry (%) 95 12/20/18 09:00 Constitutional: Yes: Calm Eyes: Yes: Conjunctiva Clear HENT: Yes: Atraumatic Neck: Yes: Supple Cardiovascular: Yes: S1, S2 Respiratory: Yes: CTA Bilaterally Gastrointestinal: Yes: Normal Bowel Sounds, Soft Musculoskeletal: Yes: WNL Edema: Yes Edema: LLE: Trace, RLE: Trace Neurological: Yes: Oriented Psychiatric: Yes: Oriented Labs: CBC, BMP 12/19/18 05:20 12/19/18 05:20 INR, PTT INR 1.09 (0.83-1.09) 12/16/18 05:30 Problem List - Problems (1) Acute kidney failure Code(s): N17.9 - ACUTE KIDNEY FAILURE, UNSPECIFIED (2) Bradycardia Code(s): R00.1 - BRADYCARDIA, UNSPECIFIED (3) Hyperkalemia Code(s): E87.5 - HYPERKALEMIA (4) Hypotension Code(s): I95.9 - HYPOTENSION, UNSPECIFIED (5) HTN (hypertension) Code(s): I10 - ESSENTIAL (PRIMARY) HYPERTENSION Assessment/Plan Current Medications Generic Name Dose Route Start Last Admin Trade Name Freq PRN Reason Stop Dose Admin Acetaminophen 650 mg 12/16/18 09:37 12/20/18 12:46 Tylenol - PO 650 mg Q6H PRN Administration PAIN LEVEL 1-5 Atorvastatin Calcium 10 mg 12/15/18 22:00 12/19/18 21:53 Lipitor - PO 10 mg HS ALEJANDRA Administration Docusate Sodium 100 mg 12/17/18 12:51 Colace - PO BID PRN CONSTIPATION Heparin Sodium (Porcine) 5,000 unit 12/18/18 10:00 12/20/18 10:36 Heparin - SQ 5,000 unit BID ALEJANDRA Administration Ceftriaxone Sodium 1 gm/ 50 mls @ 100 mls/hr 12/20/18 10:45 12/20/18 12:41 Dextrose IVPB 100 mls/hr DAILY ALEJANDRA Administration Protocol Metoprolol Tartrate 25 mg 12/20/18 22:00 Lopressor - PO BID ALEJANDRA Senna 1 tab 12/17/18 22:00 12/19/18 21:53 Senna - PO 1 tab HS ALEJANDRA Administration Terazosin HCl 5 mg 12/20/18 13:00 12/20/18 13:10 Hytrin - PO 5 mg DAILY ALEJANDRA Administration Laboratory Tests 12/16/18 12/19/18 12/19/18 05:30 05:20 17:00 BUN 63 H Creatinine 2.8 H SUSHILA Screen Positive H SUSHILA Homogeneous Pattern 1:80 c-ANCA Pending Proteinase 3 (PR3) Pending p-ANCA Pending Atypical p-ANCA Pending Myeloperoxidase Ab Pending Double Strand DNA Ab Pending Glomerular Base Memb Ab Hepatitis A Ab Total Pending Hep Bs Antigen Pending Hep Bs Antibody Pending Hep B Core Total Ab Pending HCV Quantitation Pending 12/19/18 17:00 BUN Creatinine SUSHILA Screen SUSHILA Homogeneous Pattern c-ANCA Proteinase 3 (PR3) p-ANCA Atypical p-ANCA Myeloperoxidase Ab Double Strand DNA Ab Glomerular Base Memb Ab Pending Hepatitis A Ab Total Hep Bs Antigen Hep Bs Antibody Hep B Core Total Ab HCV Quantitation Impression 1. RADHA 2. hyperkalemia 3. metabolic acidosis 4. HLD 5. HTN 6. bradycardia 7. weight loss 8. CAD Plan - follow renal workup - rheum eval pending - check bmp - can stop fluids and re-evaluate tomorrow - hold off lasix for now - discussed with medical team Dr Jackson
--- NOTE | 2018-12-20 16:58 | CONSULT ---
Consult Consult Specialty:: Rheumatology - History of Present Illness History of Present Illness: 83 y/o male with PMH of HTN, CAD s/p stent, HLD and dementia admitted with elevated creatinine on routine lab work. The patient's daughter reports poor appetite, weakness and 10 lb weight loss over the past month. He was found to have positive SUSHILA. 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 He denies skin rash, oral ulcers,. Sicca sundrome, Raynauds phenomenon or shortness of breath. Laboratory work-up: Creatinine on 05/17/15: 1.7, on admission 4.6 and today 2.8. Urinalysis today with blood 1+ and no protein. SUSHILA 1:80 with homogeneous pattern. X rays of the knees revealed, in both, severe narrowing of the medial compartment with bone on bone contact and increased sclerosis. Patello femoral space with moderate narrowing in the right and severe narrowing in the left. 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 Home Medications - Allergies Allergies/Adverse Reactions: Allergies Allergy/AdvReac Type Severity Reaction Status Date / Time No Known Allergies Allergy Verified 05/17/15 11:01 - Home Medications Home Medications: Ambulatory Orders Cholecalciferol (Vitamin D3) [Vitamin D3] 1,000 unit PO DAILY 05/17/15 Metoprolol Tartrate [Lopressor -] 25 mg PO BID 05/17/15 Quinapril HCl [Accupril -] 20 mg PO DAILY 05/17/15 Simvastatin 10 mg PO DAILY 05/17/15 Terazosin HCl 5 mg PO DAILY 05/17/15 Furosemide [Lasix -] 20 mg PO DAILY 12/14/18 Potassium Bicarbonate/Cit AC [Potassium 25 Meq Tablet Eff] 25 meq PO DAILY 12/14 Family Disease History - Family Disease History Family Disease History: Other: Brother ( but pt does not know the cause) Review of Systems - Review of Systems Constitutional: reports: Lethargy, Loss of Appetite, Unintentional Wgt. Loss Eyes: reports: No Symptoms HENT: reports: No Symptoms Neck: reports: No Symptoms Cardiovascular: reports: No Symptoms Respiratory: reports: No Symptoms Gastrointestinal: reports: No Symptoms Musculoskeletal: reports: Other (Pain and swelling in both knees.) Physical Exam Vital Signs: Vital Signs Temperature 99.4 F 12/20/18 14:53 Pulse Rate 86 12/20/18 14:53 Respiratory Rate 18 12/20/18 14:53 Blood Pressure 122/59 L 12/20/18 14:53 O2 Sat by Pulse Oximetry (%) 95 12/20/18 09:00 Constitutional: Yes: Mild Distress Eyes: Yes: WNL HENT: Yes: WNL Neck: Yes: WNL Cardiovascular: Yes: WNL Respiratory: Yes: WNL Gastrointestinal: Yes: WNL Musculoskeletal: Yes: Other (Tenderness and swelling in both knees.) Labs: CBC, BMP 12/19/18 05:20 12/19/18 05:20 Problem List - Problems (1) Osteoarthritis of knee, unspecified Assessment/Plan: Osteoarthritis in both knees with significant damage. The patient requires a walker. He probably is not a candidate for total knee replacement. Code(s): M17.9 - OSTEOARTHRITIS OF KNEE, UNSPECIFIED (2) SUSHILA positive Assessment/Plan: SUSHILA positive at a low titer. Probable false positive test. He does not require further work-up. Code(s): R76.8 - OTHER SPECIFIED ABNORMAL IMMUNOLOGICAL FINDINGS IN SERUM (3) Acute kidney failure Assessment/Plan: Chronic kidney disease with elevated creatinine on admission and now improving. Probably related to HTN and pre-renal. It is unlikely to be related to connective tissue disease. Code(s): N17.9 - ACUTE KIDNEY FAILURE, UNSPECIFIED
[2018-12-20] MEDS: ATORVASTATIN CA 10 MG TABLET (FP) PO SCH (22:39)
[2018-12-20] MEDS: METOPROLOL TARTRATE 25 MG TABLET (FP) PO SCH (22:40)
[2018-12-20] MEDS: SENNOSIDES 8.6MG TABLET (FP) PO SCH (22:40)
[2018-12-21 03:17] LABS: HBSAG SCREEN Negative (Negative); HEP B CORE AB, TOT Negative (Negative)
[2018-12-21] MEDS: ACETAMINOPHEN 325 MG TABLET (FP) PO PRN ×2 (03:18→09:47)
[2018-12-21 07:08] LABS: ANION GAP 9 MMOL/L (8-16); BLOOD UREA NITROGEN 69 mg/dL (7-18); CALCIUM 7.8 mg/dL (8.5-10.1); CHLORIDE 114 mmol/L (98-107); CO2 20 mmol/L (21-32); CREATININE 2.6 mg/dL (0.55-1.3); GLUCOSE,RANDOM 99 mg/dL (74-106); MAGNESIUM 1.6 mg/dL (1.8-2.4); PHOSPHOROUS 3.1 mg/dL (2.5-4.9); POTASSIUM 4.4 mmol/L (3.5-5.1); SODIUM 142 mmol/L (136-145)
[2018-12-21 07:19] LABS: BASO % 0.5 % (0-2.0); EOS % 4.1 % (0-4.5); HEMATOCRIT 21.1 % (35.4-49); HEMOGLOBIN 7.2 GM/dL (11.7-16.9); LYMPH % 9.8 % (8-40); MCH 32.2 pg (25.7-33.7); MCHC 34.1 g/dl (32.0-35.9); MEAN CELL VOLUME 94.4 fl (80-96); MEAN PLT VOLUME 9.4 fl (7.5-11.1); MONO % 15.3 % (3.8-10.2); NEUT % 70.3 % (42.8-82.8); PLATELET COUNT 142 K/MM3 (134-434); RBC 2.23 M/mm3 (4.00-5.60); RDW 14.9 % (11.9-15.9); WHITE BLOOD COUNT 5.8 K/mm3 (4.0-10.0)
[2018-12-21] MEDS ORDERED: MAGNESIUM SULF 50% (8.12 MEQ/2 ML-1 GM VIAL) IVPB ONE ×2 (09:04→11:30)
[2018-12-21] MEDS ORDERED: cefTRIAXone SODIUM 1 GM VIAL ONE (09:37)
[2018-12-21] MEDS ORDERED: DEXTROSE 5%-WATER - 50 ML IVPB ONE (09:37)
[2018-12-21] MEDS: CEFTRIAXONE 1 GM in DEXTROSE 5%-WATER - 50 ML IVPB SCH (09:47)
[2018-12-21] MEDS: METOPROLOL TARTRATE 25 MG TABLET (FP) PO SCH ×2 (09:48→21:55)
[2018-12-21] MEDS: TERAZOSIN HCL 5 MG CAPSULE PO SCH (09:48)
[2018-12-21] MEDS: HEPARIN NA (PORCINE) 5,000 UNITS/ML 1ML VIAL SQ SCH ×2 (09:48→21:55)
--- NOTE | 2018-12-21 10:06 | PN ---
Progress Note, Physician Chief Complaint: Pt lying in bed in no acute distress. reports feeling well. Denies any chest pain, sob, n/v/d - Current Medication List Current Medications: Active Medications Acetaminophen (Tylenol -) 650 mg PO Q6H PRN PRN Reason: PAIN LEVEL 1-5 Last Admin: 12/21/18 09:47 Dose: 650 mg Albuterol/Ipratropium (Duoneb -) 1 amp NEB RTID [facility] Atorvastatin Calcium (Lipitor -) 10 mg PO HS [facility] Last Admin: 12/20/18 22:39 Dose: 10 mg Docusate Sodium (Colace -) 100 mg PO BID PRN PRN Reason: CONSTIPATION Last Admin: 12/21/18 09:48 Dose: 100 mg Heparin Sodium (Porcine) (Heparin -) 5,000 unit SQ BID [facility] Last Admin: 12/21/18 09:48 Dose: 5,000 unit Ceftriaxone Sodium 1 gm/ (Dextrose) 50 mls @ 100 mls/hr IVPB DAILY [facility]; Protocol Last Admin: 12/21/18 09:47 Dose: 100 mls/hr Metoprolol Tartrate (Lopressor -) 25 mg PO BID [facility] Last Admin: 12/21/18 09:48 Dose: 25 mg Senna (Senna -) 1 tab PO HS [facility] Last Admin: 12/20/18 22:40 Dose: 1 tab Terazosin HCl (Hytrin -) 5 mg PO DAILY [facility] Last Admin: 12/21/18 09:48 Dose: 5 mg - Objective Vital Signs: Vital Signs Temperature 99 F 12/21/18 09:00 Pulse Rate 105 H 12/21/18 09:00 Respiratory Rate 20 12/21/18 09:00 Blood Pressure 138/75 12/21/18 09:00 O2 Sat by Pulse Oximetry (%) 96 12/20/18 21:00 Constitutional: Yes: Well Nourished, No Distress, Calm Cardiovascular: Yes: Regular Rate and Rhythm Respiratory: Yes: Regular, Diminished, Rhonchi (scattered), Wheezes. No: Accessory Muscle Use, Rales, SOB, Tachypnea Gastrointestinal: Yes: WNL, Normal Bowel Sounds, Soft. No: Distention, Tenderness Genitourinary: Yes: WNL Edema: Yes Edema: LUE: Trace, RUE: Trace, LLE: 1+, RLE: 1+ Neurological: Yes: WNL, Alert, Oriented Psychiatric: Yes: WNL, Alert, Oriented Labs: CBC, BMP 12/21/18 05:30 12/21/18 05:30 INR, PTT INR 1.09 (0.83-1.09) 12/16/18 05:30 - ....Imaging X-ray: Pending Assessment/Plan (1) Acute kidney failure Assessment/Plan: improving Code(s): N17.9 - ACUTE KIDNEY FAILURE, UNSPECIFIED (2) Hyperkalemia Assessment/Plan: resolved with medical management hold ARB, potassium supplements Code(s): E87.5 - HYPERKALEMIA (3) Hypotension Assessment/Plan: resolved Code(s): I95.9 - HYPOTENSION, UNSPECIFIED (4) Dementia Assessment/Plan: stable fall precautions Code(s): F03.90 - UNSPECIFIED DEMENTIA WITHOUT BEHAVIORAL DISTURBANCE (5) HTN (hypertension) Assessment/Plan: controlled continue metoprolol lasix held Code(s): I10 - ESSENTIAL (PRIMARY) HYPERTENSION (6) Hyperlipemia Assessment/Plan: continue statin Code(s): E78.5 - HYPERLIPIDEMIA, UNSPECIFIED (7) Anemia of chronic disease Assessment/Plan: acute on chronic Code(s): D63.8 - ANEMIA IN OTHER CHRONIC DISEASES CLASSIFIED ELSEWHERE (8) Fever Assessment/Plan: suspect 2/2 uti await final c&s blood cultures neg chest xray w/out acute changes Code(s): R50.9 - FEVER, UNSPECIFIED Qualifiers: Encounter type: initial encounter (9) BPH (benign prostatic hyperplasia) Assessment/Plan: continue terazosin as above Code(s): N40.0 - BENIGN PROSTATIC HYPERPLASIA WITHOUT LOWER URINRY TRACT SYMP Qualifiers: Lower urinary tract symptom presence: symptoms present Lower urinary tract symptom detail: urinary frequency Qualified Code(s): N40.1 - Benign prostatic hyperplasia with lower urinary tract symptoms; R35.0 - Frequency of micturition (10) SUSHILA positive Assessment/Plan: rheum evaluated- lupus unlikely Code(s): R76.8 - OTHER SPECIFIED ABNORMAL IMMUNOLOGICAL FINDINGS IN SERUM (11) UTI (urinary tract infection) Assessment/Plan: UA+, UC growing presumptive mssa ceftriaxone day 2 await final urine sensitivity Code(s): N39.0 - URINARY TRACT INFECTION, SITE NOT SPECIFIED Qualifiers: Urinary tract infection type: acute cystitis Hematuria presence: with hematuria Qualified Code(s): N30.01 - Acute cystitis with hematuria (12) Acute blood loss anemia Assessment/Plan: acute on chronic multifactorial stool occult blood ordered transfuse 1 unit monitor cbc Code(s): D62 - ACUTE POSTHEMORRHAGIC ANEMIA
[2018-12-21] MEDS: ALBUTEROL SO4 2.5/IPRATROPIUM 0.5 INH SOL 3 ML VIAL.NEB. NEB SCH ×3 (10:30→20:12)
--- NOTE | 2018-12-21 12:15 | PN ---
Progress Note, Physician History of Present Illness: Pt seen and examined at bedside. He is awake and appears comfortable. He denies shortness of breath. - Current Medication List Current Medications: Active Medications Acetaminophen (Tylenol -) 650 mg PO Q6H PRN PRN Reason: PAIN LEVEL 1-5 Last Admin: 12/21/18 09:47 Dose: 650 mg Albuterol/Ipratropium (Duoneb -) 1 amp NEB RTID [facility] Last Admin: 12/21/18 10:30 Dose: 1 amp Atorvastatin Calcium (Lipitor -) 10 mg PO HS [facility] Last Admin: 12/20/18 22:39 Dose: 10 mg Docusate Sodium (Colace -) 100 mg PO BID PRN PRN Reason: CONSTIPATION Last Admin: 12/21/18 09:48 Dose: 100 mg Furosemide (Lasix Injection -) 40 mg IVPUSH [facility]STITUTIONAL AIDE [facility] Stop: 12/21/18 16:00 Heparin Sodium (Porcine) (Heparin -) 5,000 unit SQ BID [facility] Last Admin: 12/21/18 09:48 Dose: 5,000 unit Ceftriaxone Sodium 1 gm/ (Dextrose) 50 mls @ 100 mls/hr IVPB DAILY [facility]; Protocol Last Admin: 12/21/18 09:47 Dose: 100 mls/hr Metoprolol Tartrate (Lopressor -) 25 mg PO BID [facility] Last Admin: 12/21/18 09:48 Dose: 25 mg Senna (Senna -) 1 tab PO [facility] Last Admin: 12/20/18 22:40 Dose: 1 tab Terazosin HCl (Hytrin -) 5 mg PO DAILY [facility] Last Admin: 12/21/18 09:48 Dose: 5 mg - Objective Vital Signs: Vital Signs Temperature 99 F 12/21/18 09:00 Pulse Rate 105 H 12/21/18 09:00 Respiratory Rate 20 12/21/18 09:00 Blood Pressure 138/75 12/21/18 09:00 O2 Sat by Pulse Oximetry (%) 96 12/21/18 09:00 Constitutional: Yes: Calm Eyes: Yes: Conjunctiva Clear HENT: Yes: Atraumatic Neck: Yes: Supple Cardiovascular: Yes: S1, S2 Respiratory: Yes: CTA Bilaterally Gastrointestinal: Yes: Soft Genitourinary: Yes: WNL Musculoskeletal: Yes: WNL Edema: Yes Edema: LLE: 1+, RLE: 1+ Neurological: Yes: Oriented Psychiatric: Yes: Oriented Labs: CBC, BMP 12/21/18 05:30 12/21/18 05:30 INR, PTT INR 1.09 (0.83-1.09) 12/16/18 05:30 Problem List - Problems (1) Acute kidney failure Code(s): N17.9 - ACUTE KIDNEY FAILURE, UNSPECIFIED (2) Bradycardia Code(s): R00.1 - BRADYCARDIA, UNSPECIFIED (3) Hyperkalemia Code(s): E87.5 - HYPERKALEMIA (4) Hypotension Code(s): I95.9 - HYPOTENSION, UNSPECIFIED (5) HTN (hypertension) Code(s): I10 - ESSENTIAL (PRIMARY) HYPERTENSION Assessment/Plan Current Medications Generic Name Dose Route Start Last Admin Trade Name Freq PRN Reason Stop Dose Admin Acetaminophen 650 mg 12/16/18 09:37 12/21/18 09:47 Tylenol - PO 650 mg Q6H PRN Administration PAIN LEVEL 1-5 Albuterol/Ipratropium 1 amp 12/21/18 10:00 12/21/18 10:30 Duoneb - NEB 1 amp RTID ALEJANDRA Administration Atorvastatin Calcium 10 mg 12/15/18 22:00 12/20/18 22:39 Lipitor - PO 10 mg HS ALEJANDRA Administration Docusate Sodium 100 mg 12/17/18 12:51 12/21/18 09:48 Colace - PO 100 mg BID PRN Administration CONSTIPATION Furosemide 40 mg 12/21/18 14:00 Lasix Injection - IVPUSH 12/21/18 16:00 INSTITUTIONAL AIDE [facility] Heparin Sodium (Porcine) 5,000 unit 12/18/18 10:00 12/21/18 09:48 Heparin - SQ 5,000 unit BID ALEJANDRA Administration Ceftriaxone Sodium 1 gm/ 50 mls @ 100 mls/hr 12/20/18 10:45 12/21/18 09:47 Dextrose IVPB 100 mls/hr DAILY ALEJANDRA Administration Protocol Metoprolol Tartrate 25 mg 12/20/18 22:00 12/21/18 09:48 Lopressor - PO 25 mg BID ALEJANDRA Administration Senna 1 tab 12/17/18 22:00 12/20/18 22:40 Senna - PO 1 tab HS ALEJANDRA Administration Terazosin HCl 5 mg 12/20/18 13:00 12/21/18 09:48 Hytrin - PO 5 mg DAILY ALEJANDRA Administration Laboratory Tests 12/16/18 12/19/18 12/19/18 05:30 17:00 17:00 SUSHILA Screen Positive H SUSHILA Homogeneous Pattern 1:80 c-ANCA Pending Proteinase 3 (PR3) Pending p-ANCA Pending Atypical p-ANCA Pending Double Strand DNA Ab Pending Glomerular Base Memb Ab Pending Impression 1. RADHA 2. hyperkalemia 3. metabolic acidosis 4. HLD 5. HTN 6. bradycardia 7. weight loss 8. CAD Plan - renal function is improving - follow renal workup - fluids stopped yesterday - give dose of lasix with blood - rheum input appreciated - discussed with medical team Dr Jackson
[2018-12-21] MEDS ORDERED: FUROSEMIDE 40 MG/4 ML INJECTABLE VIAL IVPUSH SCH ×3 (14:00)
[2018-12-21] MEDS: ATORVASTATIN CA 10 MG TABLET (FP) PO SCH (21:55)
[2018-12-21] MEDS: SENNOSIDES 8.6MG TABLET (FP) PO SCH (21:56)
[2018-12-22] MEDS ORDERED: ACETAMINOPHEN 325 MG TABLET (FP) PO PRN (01:08)
[2018-12-22] MEDS ORDERED: DOCUSATE SODIUM 100 MG CAPSULE (FP) PO PRN (01:08)
[2018-12-22 06:52] LABS: BASO % 0.6 % (0-2.0); EOS % 4.9 % (0-4.5); HEMATOCRIT 22.8 % (35.4-49); HEMOGLOBIN 7.8 GM/dL (11.7-16.9); LYMPH % 10.8 % (8-40); MCH 31.8 pg (25.7-33.7); MCHC 34.2 g/dl (32.0-35.9); MEAN CELL VOLUME 92.8 fl (80-96); MEAN PLT VOLUME 8.5 fl (7.5-11.1); MONO % 12.5 % (3.8-10.2); NEUT % 71.2 % (42.8-82.8); PLATELET COUNT 168 K/MM3 (134-434); RBC 2.46 M/mm3 (4.00-5.60); RDW 14.7 % (11.9-15.9); WHITE BLOOD COUNT 5.5 K/mm3 (4.0-10.0)
[2018-12-22 07:25] LABS: ANION GAP 8 MMOL/L (8-16); BLOOD UREA NITROGEN 72 mg/dL (7-18); CALCIUM 7.5 mg/dL (8.5-10.1); CHLORIDE 111 mmol/L (98-107); CO2 22 mmol/L (21-32); CREATININE 2.5 mg/dL (0.55-1.3); GLUCOSE,RANDOM 89 mg/dL (74-106); MAGNESIUM 2.5 mg/dL (1.8-2.4); PHOSPHOROUS 3.3 mg/dL (2.5-4.9); POTASSIUM 4.1 mmol/L (3.5-5.1); SODIUM 140 mmol/L (136-145)
[2018-12-22] MEDS: ALBUTEROL SO4 2.5/IPRATROPIUM 0.5 INH SOL 3 ML VIAL.NEB. NEB SCH ×3 (07:35→20:22)
--- NOTE | 2018-12-22 10:46 | PN ---
Progress Note, Physician Chief Complaint: Pt lying in bed in no acute distress. reports feeling well. Denies any chest pain, sob, n/v/d - Current Medication List Current Medications: Active Medications Acetaminophen (Tylenol -) 650 mg PO Q6H PRN PRN Reason: PAIN LEVEL 1-5 Albuterol/Ipratropium (Duoneb -) 1 amp NEB RTID [facility] Last Admin: 12/22/18 07:35 Dose: 1 amp Atorvastatin Calcium (Lipitor -) 10 mg PO HS [facility] Docusate Sodium (Colace -) 100 mg PO BID PRN PRN Reason: CONSTIPATION Heparin Sodium (Porcine) (Heparin -) 5,000 unit SQ BID [facility] Ceftriaxone Sodium 1 gm/ (Dextrose) 50 mls @ 100 mls/hr IVPB DAILY [facility]; Protocol Metoprolol Tartrate (Lopressor -) 25 mg PO BID [facility] Last Admin: 12/21/18 21:55 Dose: 25 mg Senna (Senna -) 1 tab PO HS [facility] Terazosin HCl (Hytrin -) 5 mg PO DAILY [facility] Last Admin: 12/21/18 09:48 Dose: 5 mg - Objective Vital Signs: Vital Signs Temperature 98.9 F 12/22/18 01:21 Pulse Rate 80 12/21/18 22:00 Respiratory Rate 18 12/21/18 22:00 Blood Pressure 152/70 12/21/18 22:00 O2 Sat by Pulse Oximetry (%) 96 12/21/18 21:00 Constitutional: Yes: Well Nourished, No Distress, Calm Cardiovascular: Yes: Regular Rate and Rhythm Respiratory: Yes: WNL, Regular, CTA Bilaterally. No: Accessory Muscle Use, Rales, Rhonchi, SOB, SOB on Exertion Gastrointestinal: Yes: WNL, Normal Bowel Sounds, Soft. No: Distention, Tenderness Genitourinary: Yes: WNL Edema: Yes Edema: LLE: Trace, RLE: Trace Neurological: Yes: WNL, Alert, Oriented Psychiatric: Yes: WNL, Alert, Oriented Labs: CBC, BMP 12/22/18 05:45 12/22/18 05:45 INR, PTT INR 1.09 (0.83-1.09) 12/16/18 05:30 Assessment/Plan (1) Acute kidney failure Assessment/Plan: improving Code(s): N17.9 - ACUTE KIDNEY FAILURE, UNSPECIFIED (2) Hyperkalemia Assessment/Plan: resolved with medical management hold ARB, potassium supplements Code(s): E87.5 - HYPERKALEMIA (3) Hypotension Assessment/Plan: resolved Code(s): I95.9 - HYPOTENSION, UNSPECIFIED (4) Dementia Assessment/Plan: stable fall precautions Code(s): F03.90 - UNSPECIFIED DEMENTIA WITHOUT BEHAVIORAL DISTURBANCE (5) HTN (hypertension) Assessment/Plan: controlled continue metoprolol lasix held Code(s): I10 - ESSENTIAL (PRIMARY) HYPERTENSION (6) Hyperlipemia Assessment/Plan: continue statin Code(s): E78.5 - HYPERLIPIDEMIA, UNSPECIFIED (7) Anemia of chronic disease Assessment/Plan: acute on chronic Code(s): D63.8 - ANEMIA IN OTHER CHRONIC DISEASES CLASSIFIED ELSEWHERE (8) Fever Assessment/Plan: suspect 2/2 uti await final c&s blood cultures neg chest xray w/out acute changes Code(s): R50.9 - FEVER, UNSPECIFIED Qualifiers: Encounter type: initial encounter (9) BPH (benign prostatic hyperplasia) Assessment/Plan: continue terazosin as above Code(s): N40.0 - BENIGN PROSTATIC HYPERPLASIA WITHOUT LOWER URINRY TRACT SYMP Qualifiers: Lower urinary tract symptom presence: symptoms present Lower urinary tract symptom detail: urinary frequency Qualified Code(s): N40.1 - Benign prostatic hyperplasia with lower urinary tract symptoms; R35.0 - Frequency of micturition (10) SUSHILA positive Assessment/Plan: rheum evaluated- lupus unlikely Code(s): R76.8 - OTHER SPECIFIED ABNORMAL IMMUNOLOGICAL FINDINGS IN SERUM (11) UTI (urinary tract infection) Assessment/Plan: UA+, UC growing presumptive mssa ceftriaxone day 3 await final urine sensitivity Code(s): N39.0 - URINARY TRACT INFECTION, SITE NOT SPECIFIED Qualifiers: Urinary tract infection type: acute cystitis Hematuria presence: with hematuria Qualified Code(s): N30.01 - Acute cystitis with hematuria (12) Acute blood loss anemia Assessment/Plan: acute on chronic multifactorial s/p 1unit prbcs stool occult blood pending monitor cbc Code(s): D62 - ACUTE POSTHEMORRHAGIC ANEMIA Dispo: SNF, pending urine c&s. If hg/hct stable, and pt is cleared by nephrology , anticipate discharge in the next 24-48 hours if no clinical changes.
[2018-12-22] MEDS ORDERED: DEXTROSE 5%-WATER - 50 ML IVPB ONE (10:50)
[2018-12-22] MEDS ORDERED: cefTRIAXone SODIUM 1 GM VIAL ONE (10:50)
[2018-12-22] MEDS: HEPARIN NA (PORCINE) 5,000 UNITS/ML 1ML VIAL SQ SCH ×2 (11:30→21:43)
[2018-12-22] MEDS: TERAZOSIN HCL 5 MG CAPSULE PO SCH (11:31)
[2018-12-22] MEDS: CEFTRIAXONE 1 GM in DEXTROSE 5%-WATER - 50 ML IVPB SCH (11:33)
[2018-12-22] MEDS: METOPROLOL TARTRATE 25 MG TABLET (FP) PO SCH ×2 (11:33→21:44)
[2018-12-22] MEDS: PANTOPRAZOLE 40 MG TABLET (FP) PO SCH (11:35)
--- NOTE | 2018-12-22 16:02 | PN ---
Progress Note, Physician History of Present Illness: Pt seen and examined at bedside. He is awake and appears comfortable. He denies shortness of breath. - Current Medication List Current Medications: Active Medications Acetaminophen (Tylenol -) 650 mg PO Q6H PRN PRN Reason: PAIN LEVEL 1-5 Albuterol/Ipratropium (Duoneb -) 1 amp NEB RTID [facility] Last Admin: 12/22/18 07:35 Dose: 1 amp Atorvastatin Calcium (Lipitor -) 10 mg PO HS [facility] Docusate Sodium (Colace -) 100 mg PO BID PRN PRN Reason: CONSTIPATION Heparin Sodium (Porcine) (Heparin -) 5,000 unit SQ BID [facility] Last Admin: 12/22/18 11:30 Dose: 5,000 unit Ceftriaxone Sodium 1 gm/ (Dextrose) 50 mls @ 100 mls/hr IVPB DAILY [facility]; Protocol Last Admin: 12/22/18 11:33 Dose: 100 mls/hr Metoprolol Tartrate (Lopressor -) 25 mg PO BID [facility] Last Admin: 12/22/18 11:33 Dose: 25 mg Pantoprazole Sodium (Protonix -) 40 mg PO DAILY [facility] Last Admin: 12/22/18 11:35 Dose: 40 mg Senna (Senna -) 1 tab PO [facility] Terazosin HCl (Hytrin -) 5 mg PO DAILY [facility] Last Admin: 12/22/18 11:31 Dose: 5 mg - Objective Vital Signs: Vital Signs Temperature 99.8 F H 12/22/18 15:19 Pulse Rate 94 H 12/22/18 15:19 Respiratory Rate 18 12/22/18 15:19 Blood Pressure 126/55 L 12/22/18 15:19 O2 Sat by Pulse Oximetry (%) 96 12/21/18 21:00 Constitutional: Yes: Calm Eyes: Yes: Conjunctiva Clear HENT: Yes: Atraumatic Cardiovascular: Yes: S1, S2 Respiratory: Yes: CTA Bilaterally Gastrointestinal: Yes: Soft Genitourinary: Yes: WNL Musculoskeletal: Yes: WNL Edema: Yes Edema: LLE: 1+, RLE: 1+ Integumentary: Yes: WNL Neurological: Yes: Oriented Psychiatric: Yes: Oriented Labs: CBC, BMP 12/22/18 05:45 12/22/18 05:45 INR, PTT INR 1.09 (0.83-1.09) 12/16/18 05:30 Problem List - Problems (1) Acute kidney failure Code(s): N17.9 - ACUTE KIDNEY FAILURE, UNSPECIFIED (2) Bradycardia Code(s): R00.1 - BRADYCARDIA, UNSPECIFIED (3) Hyperkalemia Code(s): E87.5 - HYPERKALEMIA (4) Hypotension Code(s): I95.9 - HYPOTENSION, UNSPECIFIED (5) HTN (hypertension) Code(s): I10 - ESSENTIAL (PRIMARY) HYPERTENSION Assessment/Plan Current Medications Generic Name Dose Route Start Last Admin Trade Name Freq PRN Reason Stop Dose Admin Acetaminophen 650 mg 12/22/18 01:08 Tylenol - PO Q6H PRN PAIN LEVEL 1-5 Albuterol/Ipratropium 1 amp 12/21/18 10:00 12/22/18 07:35 Duoneb - NEB 1 amp RTID ALEJANDRA Administration Atorvastatin Calcium 10 mg 12/22/18 22:00 Lipitor - PO HS ALEJANDRA Docusate Sodium 100 mg 12/22/18 01:08 Colace - PO BID PRN CONSTIPATION Heparin Sodium (Porcine) 5,000 unit 12/22/18 10:00 12/22/18 11:30 Heparin - SQ 5,000 unit BID ALEJANDRA Administration Ceftriaxone Sodium 1 gm/ 50 mls @ 100 mls/hr 12/22/18 10:00 12/22/18 11:33 Dextrose IVPB 100 mls/hr DAILY ALEJANDRA Administration Protocol Metoprolol Tartrate 25 mg 12/20/18 22:00 12/22/18 11:33 Lopressor - PO 25 mg BID ALEJANDRA Administration Pantoprazole Sodium 40 mg 12/22/18 11:30 12/22/18 11:35 Protonix - PO 40 mg DAILY ALEJANDRA Administration Senna 1 tab 12/22/18 22:00 Senna - PO HS ALEJANDRA Terazosin HCl 5 mg 12/20/18 13:00 12/22/18 11:31 Hytrin - PO 5 mg DAILY ALEJANDRA Administration Laboratory Tests 12/16/18 12/19/18 12/19/18 05:30 17:00 17:00 SUSHILA Screen Positive H SUSHILA Homogeneous Pattern 1:80 Double Strand DNA Ab 1 Glomerular Base Memb Ab 3 Impression 1. RADHA 2. hyperkalemia 3. metabolic acidosis 4. HLD 5. HTN 6. bradycardia 7. weight loss 8. CAD Plan - renal function continues to improve - hold off fluids for now - monitor hg - follow renal workup - discussed with medical team Dr Jackson
[2018-12-22] MEDS ORDERED: ATORVASTATIN CA 10 MG TABLET (FP) PO SCH (22:00)
[2018-12-22] MEDS ORDERED: SENNOSIDES 8.6MG TABLET (FP) PO SCH (22:00)
[2018-12-23] MEDS: ALBUTEROL SO4 2.5/IPRATROPIUM 0.5 INH SOL 3 ML VIAL.NEB. NEB SCH ×2 (07:40→13:55)
[2018-12-23 08:47] LABS: BASO % 0.9 % (0-2.0); EOS % 6.6 % (0-4.5); HEMATOCRIT 24.1 % (35.4-49); HEMOGLOBIN 8.2 GM/dL (11.7-16.9); LYMPH % 15.2 % (8-40); MCH 31.8 pg (25.7-33.7); MCHC 33.9 g/dl (32.0-35.9); MEAN CELL VOLUME 93.9 fl (80-96); MEAN PLT VOLUME 8.2 fl (7.5-11.1); MONO % 13.9 % (3.8-10.2); NEUT % 63.4 % (42.8-82.8); PLATELET COUNT 218 K/MM3 (134-434); RBC 2.56 M/mm3 (4.00-5.60); RDW 15.2 % (11.9-15.9); WHITE BLOOD COUNT 4.6 K/mm3 (4.0-10.0)
[2018-12-23] MEDS ORDERED: cefTRIAXone SODIUM 1 GM VIAL ONE (08:54)
[2018-12-23] MEDS ORDERED: DEXTROSE 5%-WATER - 50 ML IVPB ONE (08:55)
[2018-12-23] MEDS: PANTOPRAZOLE 40 MG TABLET (FP) PO SCH (09:29)
[2018-12-23] MEDS: HEPARIN NA (PORCINE) 5,000 UNITS/ML 1ML VIAL SQ SCH (09:29)
[2018-12-23] MEDS: CEFTRIAXONE 1 GM in DEXTROSE 5%-WATER - 50 ML IVPB SCH (09:29)
[2018-12-23] MEDS: METOPROLOL TARTRATE 25 MG TABLET (FP) PO SCH (09:29)
[2018-12-23] MEDS ORDERED: PT OWN MED DRAWER 7, Y5N ONE (09:31)
[2018-12-23 09:32] LABS: ANION GAP 8 MMOL/L (8-16); BLOOD UREA NITROGEN 73 mg/dL (7-18); CALCIUM 7.7 mg/dL (8.5-10.1); CHLORIDE 112 mmol/L (98-107); CO2 24 mmol/L (21-32); CREATININE 2.6 mg/dL (0.55-1.3); GLUCOSE,RANDOM 78 mg/dL (74-106); MAGNESIUM 2.3 mg/dL (1.8-2.4); POTASSIUM 4.4 mmol/L (3.5-5.1); SODIUM 144 mmol/L (136-145)
[2018-12-23] MEDS: TERAZOSIN HCL 5 MG CAPSULE PO SCH (09:32)
[2018-12-23] MEDS ORDERED: FUROSEMIDE 20 MG TABLET (FP) PO SCH (10:45)
--- NOTE | 2018-12-23 10:57 | DS ---
Physical Exam: SUBJECTIVE: Patient seen and examined, reports leg swelling, no chest pain, dyspnea, dizziness, abdominal or urinary symptoms. Tolerating diet well. OBJECTIVE: Vital Signs Period Temp Pulse Resp BP Sys/Malin Pulse Ox Last 24 Hr 98.2 F-99.8 F 76-94 18-20 126-129/55-73 96 PHYSICAL EXAM GENERAL:Awake, oriented to self, place, no acute distress neck: soft, supple, no JVD visualized Chest: CTAB, no rales or wheezing Abdomen:soft, obese, NT, no suprapubic or CVA tenderness Extremities 2+ pedal pitting edema LABS Laboratory Results - last 24 hr 12/19/18 12/23/18 12/23/18 17:00 06:00 06:00 WBC 4.6 RBC 2.56 L Hgb 8.2 L Hct 24.1 L MCV 93.9 MCH 31.8 MCHC 33.9 RDW 15.2 Plt Count 218 D MPV 8.2 Absolute Neuts (auto) 2.9 Neutrophils % 63.4 Lymphocytes % 15.2 D Monocytes % 13.9 H Eosinophils % 6.6 H Basophils % 0.9 Nucleated RBC % 0 Sodium 144 Potassium 4.4 Chloride 112 H Carbon Dioxide 24 Anion Gap 8 BUN 73 H Creatinine 2.6 H Creat Clearance w eGFR 23.63 Random Glucose 78 Calcium 7.7 L Phosphorus 4.0 Magnesium 2.3 Total Protein (PEP) 5.1 L Albumin (PEP) 2.5 L Globulin 2.6 Albumin/Globulin Ratio 1.0 Beta Globulins 0.7 TATIANA M-Alec Not observed HCV Quantitation Hcv not detected HCV RNA log copies/mL TNP HIV 1&2 Antibody Screen HIV P24 Antigen 12/23/18 06:00 WBC RBC Hgb Hct MCV MCH MCHC RDW Plt Count MPV Absolute Neuts (auto) Neutrophils % Lymphocytes % Monocytes % Eosinophils % Basophils % Nucleated RBC % Sodium Potassium Chloride Carbon Dioxide Anion Gap BUN Creatinine Creat Clearance w eGFR Random Glucose Calcium Phosphorus Magnesium Total Protein (PEP) Albumin (PEP) Globulin Albumin/Globulin Ratio Beta Globulins TATIANA M-Alec HCV Quantitation HCV RNA log copies/mL HIV 1&2 Antibody Screen Negative HIV P24 Antigen Negative Microbiology 12/20/18 11:30 Urine - Urine Clean Catch Urine Culture - Preliminary Staphylococcus Aureus Group D Strep Or Entero Coccus 12/20/18 10:45 Blood - Peripheral Venous Blood Culture - Preliminary NO GROWTH OBTAINED AFTER 48 HOURS, INCUBATION TO CONTINUE FOR 3 DAYS. 12/20/18 10:50 Blood - Peripheral Venous Blood Culture - Preliminary NO GROWTH OBTAINED AFTER 48 HOURS, INCUBATION TO CONTINUE FOR 3 DAYS. 12/14/18 18:56 Urine - Urine Pierre Urine Culture - Final NO GROWTH OBTAINED Renal/Bladder US - Renal ultrasound Urinary bladder ultrasound Clinical information: renal insufficiency There is no hydronephrosis. The kidneys appear unremarkable in position, cortical thickness, echogenicity and size. Each kidney measures approximately 10 cm in length. The kidneys demonstrate no obvious mass lesion or calculus within the limitations of sonography. Incidental note is made of a 4 cm left renal upper pole cortical cyst. A Pierre catheter is noted in place. There is a small amount of fluid within the urinary bladder lumen. No gross mass lesion or calculus is visualized. The prostate gland is markedly enlarged with an approximate volume of 79 mL. Impression: No hydronephrosis is seen. The kidneys demonstrate no definite sonographic abnormality. Pierre catheter in place. Prostate enlargement. Reported By: Hebert Paulson MD 12/14/18 2353 2D echo: normal LV function, EF 50-55%, mild MR, Mild AR, mild to Moderate TR, RV systolic pressure 40-50 mm Hg HOSPITAL COURSE: Date of Admission:12/14/18 Date of Discharge: 12/23/18 Minutes to complete discharge: 40 Discharge Summary Reason For Visit: RENAL FAILURE, HYPERKALEMIA Current Active Problems SUSHILA positive (Acute) Acute blood loss anemia (Acute) Acute kidney failure (Acute) Anemia (Acute) Anemia of chronic disease (Acute) BPH (benign prostatic hyperplasia) (Acute) Bradycardia (Acute) Fever (Acute) Hyperkalemia (Acute) Hypotension (Acute) Osteoarthritis of knee, unspecified (Acute) UTI (urinary tract infection) (Acute) Hospital Course: 83 yom with PMHx of CAD, HTN, HLD, dementia sent with abnormal Kidney function and high potassium levels. patient was noted in ED with creatinine 4.6, K 6.5, with EKG with peaked T waves, hypotension and bradycardia. His hyperkalemia was aggressively treated on admission with resolution of EKG changes, hypotension and Bradycardia. He was initially monitored in the ICU, seen by nephrology. His K supplements, ACEi, lasix were held and he was placed on IV hydration with improvement in Creatinine (2.6 on discharge) and resolution of his hyperkalemia. He had renal/bladder Ultrasound with no concerns and 2D echo as above. He was also found anemic which was likely multifactorial from kidney disease, iron deficiency, hydration with hemodilution and blood draws. He had no gross evidence of bleed or concerns. He received 1 unit PRBC with appropriate response and is started on iron supplementation. He was noted with UTI (urine cultures with MSSA and gp D enteroccoccus) and placed on ceftriaxone and transitioned to keflex on discharge. He had positive SUSHILA with low titer, was seen by rheumatology, felt to be false positive and no further work up was recommended. His hepatitis panel was negative and additional immunology studies are pending which will need to be followed outpatient. He was noted with progressive pedal edema, his lasix is resumed at 20 mg daily and will need to be titrated outpatient based on renal function and weight monitoring. He will be discharged to [facility] in stable condition and outpatient nephrology follow up. Condition: Stable - Instructions Diet, Activity, Other Instructions: You were admitted with worsening kidney function and high potassium levels. Your were seen by kidney doctor, received fluids and your kidney numbers have improved. You also received 1 unit blood and were treated for urine infection. DIET: Low potassium cardiac diet ACTIVITY: As tolerated with full assist. Weigh yourself daily and notify your doctor if weight gain > 3 lbs in 2 days. MEDICATIONS: Your potassium supplements and quinpril have been discontinued. PLEASE DO NOT TAKE THOSE TILL FURTHER INSTRUCTED BY YOUR DOCTOR. Continue other home medications as before. Following new medications are started; Chromagen soft gel (iron pills), start once daily and increase upto twice daily tolerated well (advise bowel regimen to avoid constipation) Antibiotic keflex 250 mg twice daily for 4 days. FOLLOW UP; IT IS VERY IMPORTANT THAT YOU FOLLOW UP WITH KIDNEY DOCTOR DR. JACKSON IN 1 WEEK. BLOOD WORK (CBC and BMP) in 3 days on 12/25/2018 at the [facility] with results to Dr. Jackson and [facility] doctor. Your hemoglobin was low and will need monitoring. Start iron pills as above and follow up with your power and recovery shift engineer and Regular doctor for further testing. Following blood work has been sent and results are pending: c-ANCA, p-ANCA, atypical p-ANCA, Myeloperoxidase, Proteinase-3 You will need to follow with Dr. Jackson in 1 week as instructed above to discuss results and further plan of care. If you notice decreased urination, poor oral intake, trouble breathing, significant weight gain, decreased urination or any new concerns, please call 911 or come to ED immediately. Referrals: Vu Herrmann MD [Primary Care Provider] - Elda Jackson MD [Staff Physician] - Disposition: ASSISTED FACILITY - Home Medications Comprehensive Discharge Medication List: Ambulatory Orders Cholecalciferol (Vitamin D3) [Vitamin D3] 1,000 unit PO DAILY 05/17/15 Metoprolol Tartrate [Lopressor -] 25 mg PO BID 05/17/15 Simvastatin 10 mg PO DAILY 05/17/15 Terazosin HCl 5 mg PO DAILY 05/17/15 Furosemide [Lasix -] 20 mg PO DAILY 12/14/18 Cephalexin [Keflex] 250 mg PO BID #8 capsule 12/23/18 Docusate Sodium [Colace -] 100 mg PO BID PRN #60 capsule 12/23/18 Iron/C/Folate 6/B12/Zn/Stomach [Chromagen Softgel] 1 each PO DAILY #30 capsule 12/23/18 Sennosides [Senna] 2 tab PO HS PRN #30 tablet 12/23/18 This patient is new to me today: Yes Date on this admission: 12/23/18 Emergency Visit: Yes ED Registration Date: 12/14/18 Care time: The patient presented to the Emergency Department on the above date and was hospitalized for further evaluation of their emergent condition. Critical Care patient: No - Discharge Referral Referred to [facility] Med P.C.: No
[2018-12-23 15:29] VITALS: BP 105/77; PULSE 100; TEMP 98.8
[2018-12-25 13:15] LABS: ATYPICAL pANCA <1:20 titer (Neg:<1:20); C-ANCA <1:20 titer (Neg:<1:20); P-ANCA <1:20 titer (Neg:<1:20)
== END 2018-12-23 15:19 | DRG 683 ==
LOC: JER 15:13 → JERBED 18:43 → JICU 23:54 → J4W 12-17 21:23 → J8W 12-21 13:46
PROVIDERS: ADMIT Internal Medicine; ATTEND Hospitalist
PROC: 0HBRXZZ Excision of Toe Nail, External Approach (ICD-10-PCS; principal; 2018-12-17)
PROC: 30233N1 Transfusion of Nonautologous Red Blood Cells into Peripheral Vein, Percutaneous Approach (ICD-10-PCS; 2018-12-21)
DX: N17.9 Acute kidney failure, unspecified (principal); E87.2 Acidosis; D62 Acute posthemorrhagic anemia; N39.0 Urinary tract infection, site not specified; E87.5 Hyperkalemia; R00.1 Bradycardia, unspecified; I95.9 Hypotension, unspecified; R63.4 Abnormal weight loss; F03.90 Unspecified dementia, unspecified severity, without behavioral disturbance, psychotic disturbance, mood disturbance, and anxiety; I25.10 Atherosclerotic heart disease of native coronary artery without angina pectoris; Z98.61 Coronary angioplasty status; D69.6 Thrombocytopenia, unspecified; B35.1 Tinea unguium; E78.5 Hyperlipidemia, unspecified; N40.0 Benign prostatic hyperplasia without lower urinary tract symptoms; B95.2 Enterococcus as the cause of diseases classified elsewhere; R76.8 Other specified abnormal immunological findings in serum; M17.9 Osteoarthritis of knee, unspecified; E83.42 Hypomagnesemia; I12.9 Hypertensive chronic kidney disease with stage 1 through stage 4 chronic kidney disease, or unspecified chronic kidney disease; N18.9 Chronic kidney disease, unspecified
CPT/HCPCS: 36415; 36430; 36511; 71045-TC-FY; 73562-TC-LT-FY; 73562-TC-RT-FY; 76775-TC; 76856-TC; 80048; 80053; 81003; 81015; 82436; 82550; 82553; 82570; 82607; 82728; 82746; 82803; 82962; 83516; 83520; 83540; 83550; 83605; 83735; 84100; 84132; 84133; 84155; 84165; 84300; 84443; 84466; 84484; 85025; 85027; 85610; 85730; 86038; 86225; 86256; 86704; 86706; 86708; 86850; 86900; 86901; 86922; 87040; 87086; 87186; 87340; 87389; 87522; 93005; 93010; 93306-TC; 94640; 97116-GP; 97162-GP; 99285-25; J1644; J7030; P9038; P9058

== ENCOUNTER 2019-01-09 21:31 | Observation (INO) | payer BC, OTHER ==
--- NOTE | 2019-01-09 21:52 | PDOC ---
History of Present Illness <Abbi Ramos - Last Filed: 01/10/19 00:50> - General History Source: Patient, [facility] Records Exam Limitations: No Limitations - History of Present Illness Initial Comments: 01/09/19 22:21 The patient is a 83 year old male, with a significant past medical history of dementia, HTN, CAD (s/p cardiac stenting), HLD, BPH, CKD, and hyperkalemia, who presents to the emergency department with, anemia. As per [facility] paperwork , on bloodwork done yesterday patient had a hemoglobin of 7.0, hematocrit 24, RBC 2.45, and BUN 49. Patient arrives to the ED for blood transfusion. While in the ED, patients only complaint is laryngitis. He denies any recent fevers, chills, headache or dizziness. He denies any recent nausea, vomit, diarrhea or constipation. He denies any recent chest pain or shortness of breath. He denies any recent dysuria, frequency, urgency or hematuria. Allergies: NKDA Past surgical history: Cardiac stenting Social History: Patient at [facility] Primary Care Physician: Dr. Cook <Meg Bragg - Last Filed: 01/10/19 01:33> - General Chief Complaint: Revisit, Lab Variance Stated Complaint: ABNORMAL LABS Time Seen by Provider: 01/09/19 21:48 Past History - Past Medical History Cardiac Disorders: Yes (STENT PLACEMENT) COPD: No Disorders: Yes (Bladder stones) HTN: Yes - Surgical History Cardiac Surgery: Yes (STENT PLACEMENT) - Family Disease History Family Disease History: Heart Disease: Father, Brother - Immunization History Immunization Up to Date: No - Suicide/Smoking/Psychosocial Hx Smoking Status: No Smoking History: Never smoked Have you smoked in the past 12 months: No Number of Cigarettes Smoked Daily: 0 Information on smoking cessation initiated: No Hx Alcohol Use: No Drug/Substance Use Hx: No Substance Use Type: Alcohol Hx Substance Use Treatment: No <Abbi Ramos - Last Filed: 01/10/19 00:50> <Meg Bragg - Last Filed: 01/10/19 01:33> - Past Medical History Allergies/Adverse Reactions: Allergies Allergy/AdvReac Type Severity Reaction Status Date / Time No Known Allergies Allergy Verified 01/09/19 21:51 Home Medications: Ambulatory Orders Acetaminophen [Pain Relief] 650 mg PO QID PRN 01/09/19 Chlorpheniramine/Dextromethorp [Robitussin Long-Acting Liq] 5 ml PO BID Cholecalciferol (Vitamin D3) [Vitamin D3] 1,000 unit PO DAILY 01/09/19 Colchicine 0.6 mg PO DAILY 01/09/19 Docusate Sodium [Colace] 300 mg PO HS 01/09/19 Furosemide 20 mg PO DAILY 01/09/19 Iron/C/Folate 6/B12/Zn/Stomach [Chromagen Softgel] 1 each PO DAILY 01/09/19 Metoprolol Tartrate 25 mg PO BID 01/09/19 Nystatin 1 each MC BID 01/09/19 Sennosides [Senna Lax] 17.2 mg PO BID 01/09/19 Simvastatin 10 mg PO HS 01/09/19 Terazosin HCl 5 mg PO DAILY 01/09/19 Review of Systems - Review of Systems Able to Perform ROS?: Yes Comments:: 01/09/19 22:22 CONSTITUTIONAL: Absent: fever, no chills, no fatigue EYES: Absent: visual changes ENT: Present: laryngitis Absent: ear pain CARDIOVASCULAR: Absent: chest pain, no palpitations RESPIRATORY: Absent: cough, no SOB GI: Absent: abdominal pain, no nausea, no vomiting, no constipation, no diarrhea GENITOURINARY: Absent: dysuria, no frequency, no hematuria MUSKULOSKELETAL: Absent: back pain, no arthralgia, no myalgia SKIN: Absent: rash NEURO: Absent: headache All Other Systems: Reviewed and Negative <Meg Bragg - Last Filed: 01/10/19 01:33> *Physical Exam - Vital Signs Last Vital Signs Temp Pulse Resp BP Pulse Ox 97.7 F 87 19 116/84 97 01/09/19 21:31 01/09/19 21:31 01/09/19 21:31 01/09/19 21:31 01/09/19 21:31 <Abbi Ramos - Last Filed: 01/10/19 00:50> - Vital Signs Last Vital Signs Temp Pulse Resp BP Pulse Ox 97.7 F 87 19 116/84 97 01/09/19 21:31 01/09/19 21:31 01/09/19 21:31 01/09/19 21:31 01/09/19 21:31 - Physical Exam Comments: 01/09/19 22:22 +GENERAL: Thin. Well developed, well nourished. Awake and alert. No acute distress. +HEENT: Laryngitis. Normocephalic, atraumatic. PERRLA, EOMI. No conjunctival pallor. Sclera are non-icteric. Moist mucous membranes. NECK: Supple. Full ROM. No JVD. Carotid pulses 2+ and symmetric, without bruits. No thyromegaly. No lymphadenopathy. CARDIOVASCULAR: Regular rate and rhythm. No murmurs, rubs, or gallops. Distal pulses are 2+ and symmetric. PULMONARY: No evidence of respiratory distress. Lungs clear to auscultation bilaterally. No wheezing, rales or rhonchi. ABDOMINAL: Soft. Non-tender. Non-distended. No rebound or guarding. No organomegaly. Normoactive bowel sounds. MUSCULOSKELETAL Normal range of motion at all joints. No bony deformities or tenderness. No CVA tenderness. +EXTREMITIES: 2+blt pitting edema. No cyanosis. No clubbing. No calf tenderness. SKIN: Warm and dry. Normal capillary refill. No rashes. No jaundice. NEUROLOGICAL: Alert, awake, appropriate. Cranial nerves 2-12 intact. No deficits to light touch and temperature in face, upper extremities and lower extremities. No motor deficits in the in face, upper extremities and lower extremities. Normoreflexic in the upper and lower extremities. Normal speech. Toes are down- going bilaterally. PSYCHIATRIC: Cooperative. Good eye contact. Appropriate mood and affect. <Meg Bragg - Last Filed: 01/10/19 01:33> Moderate Sedation - Procedure Monitoring Vital Signs: Procedure Monitoring Vital Signs Temperature 97.7 F 01/09/19 21:31 Pulse Rate 87 01/09/19 21:31 Respiratory Rate 19 01/09/19 21:31 Blood Pressure 116/84 01/09/19 21:31 O2 Sat by Pulse Oximetry (%) 97 01/09/19 21:31 <Abbi Ramos - Last Filed: 01/10/19 00:50> - Procedure Monitoring Vital Signs: Procedure Monitoring Vital Signs Temperature 97.7 F 01/09/19 21:31 Pulse Rate 87 01/09/19 21:31 Respiratory Rate 19 01/09/19 21:31 Blood Pressure 116/84 01/09/19 21:31 O2 Sat by Pulse Oximetry (%) 97 01/09/19 21:31 <Meg Bragg - Last Filed: 01/10/19 01:33> ED Treatment Course - LABORATORY CBC & Chemistry Diagram: 01/09/19 22:28 01/09/19 22:28 <Abbi Ramos - Last Filed: 01/10/19 00:50> - LABORATORY CBC & Chemistry Diagram: 01/09/19 22:28 01/09/19 22:28 <Meg Bragg - Last Filed: 01/10/19 01:33> Medical Decision Making - Medical Decision Making 01/09/19 22:31 this 83 yo male with PMH of HTN,HLD,dementia, RADHA,anemia,CAD BIBA from [facility] for anemia ROS pt states he has laryngitis and his back is itchy His recently had a blood tranfusion in Dec Last month he had an ECHO that showed EF 55-60, normal LV function he had a renal ultrasound last month that was unremarkable pt is alert and conversant, No fever,no chills,no chest pain ,no abd pain or shortness of breath plan type and screen/ hemoccult/type and screen, renal function 01/09/19 23:13 I called the [facility] and the supervising RN states they spoke with Dr Cook who wanted this pt to b transfused 01/10/19 00:50 rectal exam: no visible stool in rectal vault,no bleeding seen <Abbi Ramos - Last Filed: 01/10/19 00:50> - Medical Decision Making Patient was admitted to hospitalist team for observation and further evaluation during transfusion. <Meg Bragg - Last Filed: 01/10/19 01:33> *DC/Admit/Observation/Transfer - Discharge Dispostion Decision to Admit order: Yes <Abbi Ramos - Last Filed: 01/10/19 00:50> - Attestations Scribe Attestion: 01/09/19 22:23 Documentation prepared by Meg Bragg, acting as medical payment poster for Abbi Ramos MD. <Meg Bragg - Last Filed: 01/10/19 01:33> Diagnosis at time of Disposition: Hyperlipemia, Abnormal renal function, Anemia of chronic disease - Discharge Dispostion Condition at time of disposition: Fair
[2019-01-09 22:33] LABS: BASO % 1.4 % (0-2.0); EOS % 6.6 % (0-4.5); HEMATOCRIT 22.8 % (35.4-49); HEMOGLOBIN 7.6 GM/dL (11.7-16.9); LYMPH % 17.2 % (8-40); MCHC 33.2 g/dl (32.0-35.9); MEAN CELL VOLUME 93.5 fl (80-96); MONO % 11.1 % (3.8-10.2); NEUT % 63.7 % (42.8-82.8); PLATELET COUNT 283 K/MM3 (134-434); RBC 2.44 M/mm3 (4.00-5.60); RDW 15.3 % (11.9-15.9); RETICULOCYTES 1.02 % (0.5-1.5); WHITE BLOOD COUNT 7.5 K/mm3 (4.0-10.0)
[2019-01-09 22:46] LABS: INR 1.11 (0.83-1.09); PROTHROMBIN TIME (PATIENT) 13.1 SEC (9.7-13.0)
[2019-01-09 22:57] LABS: ALBUMIN 2.4 g/dl (3.4-5.0); ALK PHOS 59 U/L (45-117); ANION GAP 6 MMOL/L (8-16); BILIRUBIN,TOTAL 0.3 mg/dL (0.2-1); BLOOD UREA NITROGEN 55 mg/dL (7-18); CALCIUM 7.9 mg/dL (8.5-10.1); CHLORIDE 110 mmol/L (98-107); CO2 25 mmol/L (21-32); CREATININE 1.8 mg/dL (0.55-1.3); GLUCOSE,RANDOM 95 mg/dL (74-106); POTASSIUM 5.1 mmol/L (3.5-5.1); SGOT/AST 23 U/L (15-37); SGPT/ALT 28 U/L (13-61); SODIUM 142 mmol/L (136-145); TOT PROT 6.2 g/dl (6.4-8.2)
--- NOTE | 2019-01-09 23:47 | HP ---
Admitting History and Physical - Primary Care Physician PCP: Katarina Cook - Admission Chief Complaint: Anemia History of Present Illness: This is a 83 y/o man from [facility] with a PMHx of: Dementia, HTN, CAD s/p Stent , HLD, BPH, CKD, Anemia. Who presents to the ED for low Hemoglobin 7.0. patient had a recent admission 12/14-12/23 for Hyperkalemia, Acute on Chronic CKD. Who presents to the ED for blood transfusion. Per longterm records patient had an Hgb 7.0. When asked why he was sent to the hospital he states "I don't know, I was in the hospital last month". Patient has Dementia and unable to provide HPI. Patient denies fever, chills, cough, SOB, CP, palpitations, AP, N/V/D, constipation. History Source: Transfer Record Limitations to Obtaining History: Dementia - Past Medical History [employer]: Yes: Dementia Cardiovascular: Yes: HTN, Hyperlipdemia Renal/: Yes: Renal Inusuff, Hematuria, Renal Calculi, UTI - Past Surgical History Past Surgical History: Yes: Hernia Repair - Smoking History Smoking history: Never smoked Have you smoked in the past 12 months: No Aproximately how many cigarettes per day: 0 - Alcohol/Substance Use Hx Alcohol Use: No History of Substance Use: reports: None - Social History Usual Living Arrangement: Yes: Skilled Nursing ADL: Support Services 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 History of Recent Travel: No Home Medications - Allergies Allergies/Adverse Reactions: Allergies Allergy/AdvReac Type Severity Reaction Status Date / Time No Known Allergies Allergy Verified 01/09/19 21:51 - Home Medications Home Medications: Ambulatory Orders Acetaminophen [Pain Relief] 650 mg PO QID PRN 01/09/19 Chlorpheniramine/Dextromethorp [Robitussin Long-Acting Liq] 5 ml PO BID Cholecalciferol (Vitamin D3) [Vitamin D3] 1,000 unit PO DAILY 01/09/19 Colchicine 0.6 mg PO DAILY 01/09/19 Docusate Sodium [Colace] 300 mg PO HS 01/09/19 Furosemide 20 mg PO DAILY 01/09/19 Iron/C/Folate 6/B12/Zn/Stomach [Chromagen Softgel] 1 each PO DAILY 01/09/19 Metoprolol Tartrate 25 mg PO BID 01/09/19 Nystatin 1 each MC BID 01/09/19 Sennosides [Senna Lax] 17.2 mg PO BID 01/09/19 Simvastatin 10 mg PO HS 01/09/19 Terazosin HCl 5 mg PO DAILY 01/09/19 Family Disease History - Family Disease History Family Disease History: Other: Brother ( but pt does not know the cause) Review of Systems Unable to obtain ROS, reason: Dementia Physical Examination Vital Signs: Vital Signs Temperature 98.5 F 01/09/19 23:33 Pulse Rate 98 H 01/09/19 23:33 Respiratory Rate 16 01/09/19 23:33 Blood Pressure 131/86 01/09/19 23:33 O2 Sat by Pulse Oximetry (%) 96 01/09/19 23:33 Constitutional: Yes: No Distress, Calm Eyes: Yes: WNL, Conjunctiva Clear (pale), EOM Intact, PERRL HENT: Yes: WNL, Atraumatic, Normocephalic Neck: Yes: WNL, Supple, Trachea Midline Cardiovascular: Yes: WNL, Regular Rate and Rhythm, S1, S2 Respiratory: Yes: WNL, Regular, CTA Bilaterally Gastrointestinal: Yes: WNL, Normal Bowel Sounds, Soft ...Rectal Exam: Yes: WNL Renal/: Yes: Incontinence Breast(s): Yes: WNL Musculoskeletal: Yes: WNL Edema: Yes Edema: LLE: 2+, RLE: 2+ Peripheral Pulses WNL: Yes Neurological: Yes: Alert, Confusion, Cran Nerves II-XII Intact ...Motor Strength: WNL Psychiatric: Yes: Alert Labs: CBC, BMP 01/09/19 22:28 01/09/19 22:28 Laboratory Results - last 24 hr 01/09/19 01/09/19 01/09/19 22:28 22:28 22:28 WBC 7.5 RBC 2.44 L Hgb 7.6 L Hct 22.8 L MCV 93.5 MCH 31.0 MCHC 33.2 RDW 15.3 Plt Count 283 D MPV 8.0 Absolute Neuts (auto) 4.8 Neutrophils % 63.7 Neutrophils % (Manual) 67.0 Band Neutrophils % 0.0 Lymphocytes % 17.2 Lymphocytes % (Manual) 20.0 Monocytes % 11.1 H Monocytes % (Manual) 5 Eosinophils % 6.6 H Eosinophils % (Manual) 7.0 H Basophils % 1.4 Basophils % (Manual) 0.0 Myelocytes % (Man) 1 Nucleated RBC % 0 Platelet Estimate Adequate Retic Count 1.02 PT with INR 13.10 H INR 1.11 H Sodium 142 Potassium 5.1 Chloride 110 H Carbon Dioxide 25 Anion Gap 6 L BUN 55 H Creatinine 1.8 H Creat Clearance w eGFR 36.13 Random Glucose 95 Calcium 7.9 L Total Bilirubin 0.3 AST 23 ALT 28 Alkaline Phosphatase 59 Total Protein 6.2 L Albumin 2.4 L Stool Occult Blood Blood Type Antibody Screen Crossmatch 01/09/19 01/10/19 22:28 00:54 WBC RBC Hgb Hct MCV MCH MCHC RDW Plt Count MPV Absolute Neuts (auto) Neutrophils % Neutrophils % (Manual) Band Neutrophils % Lymphocytes % Lymphocytes % (Manual) Monocytes % Monocytes % (Manual) Eosinophils % Eosinophils % (Manual) Basophils % Basophils % (Manual) Myelocytes % (Man) Nucleated RBC % Platelet Estimate Retic Count PT with INR INR Sodium Potassium Chloride Carbon Dioxide Anion Gap BUN Creatinine Creat Clearance w eGFR Random Glucose Calcium Total Bilirubin AST ALT Alkaline Phosphatase Total Protein Albumin Stool Occult Blood Negative Blood Type O NEGATIVE Antibody Screen Negative Crossmatch See Detail Intake & Output 01/07/19 01/08/19 01/09/19 01/10/19 23:59 23:59 23:59 23:59 Intake Total 240 Output Total 300 Balance -60 Weight 63.503 kg 54.119 kg Current Medications Generic Name Dose Route Start Last Admin Trade Name Freq PRN Reason Stop Dose Admin Cholecalciferol 1,000 unit 01/10/19 10:00 Vitamin D3 - PO DAILY ALEJANDRA Colchicine 0.6 mg 01/10/19 10:00 Colcrys - PO DAILY ALEJANDRA Docusate Sodium 300 mg 01/10/19 22:00 Colace - PO HS ALEJANDRA Furosemide 20 mg 01/11/19 10:00 Lasix - PO DAILY ALEJANDRA Furosemide 20 mg 01/10/19 07:00 01/10/19 06:01 Lasix Injection - IVPUSH 01/10/19 07:01 20 mg ONCE ONE Administration Metoprolol Tartrate 25 mg 01/10/19 10:00 Lopressor - PO BID ALEJANDRA Non-Formulary Medication 1 each 01/10/19 10:00 Iron/C/Folate 6/B12/Zn/Stomach [Chromagen Softgel] PO DAILY ALEJANDRA Non-Formulary Medication 10 mg 01/10/19 22:00 Simvastatin [Simvastatin] PO HS ALEJANDRA Terazosin HCl 5 mg 01/10/19 10:00 Hytrin - PO DAILY ALEJANDRA Imaging - Results Chest X-ray: Report Reviewed, Image Reviewed (mild cardiomegaly and possibly mild pulmonary venous congestion) EKG: Image Reviewed (NSR no ST or TWI) Problem List - Problems (1) Anemia of chronic disease Assessment/Plan: Hgb 7.0 (baseline 7.2-12.6) Sent in from [facility] for blood transfusion PRBCs x1 ordered Lasix post transfusion Stool occult- negative Iron Studies done last month: Fe 9.1, Ferritin 256, TIBC 184 Continue Ferrous Sulfate Hematology, Nephrology consult outpatient for f/u Repeat CBC in am Code(s): D63.8 - ANEMIA IN OTHER CHRONIC DISEASES CLASSIFIED ELSEWHERE (2) CKD (chronic kidney disease) Assessment/Plan: Cr 1.8 renal function improving from baseline (2.5-4.6) Monitor BMP Avoid Nephrotoxic drugs Code(s): N18.9 - CHRONIC KIDNEY DISEASE, UNSPECIFIED (3) CAD (coronary artery disease) Assessment/Plan: s/p stent Patient denies CP or SOB EKG- NSR no ST or TWI Continue Metoprolol Code(s): I25.10 - ATHSCL HEART DISEASE OF [place] CORONARY ARTERY W/O ANG PCTRS (4) CHF (congestive heart failure) Assessment/Plan: Chest Xray report-mild cardiomegaly and possibly mild pulmonary venous congestion Continue Lasix Strict INOs Daily weight Elevate extremities [place] bandage to LE Fluid Restriction 1L Code(s): I50.9 - HEART FAILURE, UNSPECIFIED (5) Dementia Assessment/Plan: Stable No medications on file Fall Precautions Consider Ativan prn Code(s): F03.90 - UNSPECIFIED DEMENTIA WITHOUT BEHAVIORAL DISTURBANCE (6) HTN (hypertension) Assessment/Plan: stable Monitor BP Continue Metoprolol Tartate with parameters Monitor renal function Code(s): I10 - ESSENTIAL (PRIMARY) HYPERTENSION (7) BPH (benign prostatic hyperplasia) Assessment/Plan: stable Continue Terazosin Code(s): N40.0 - BENIGN PROSTATIC HYPERPLASIA WITHOUT LOWER URINRY TRACT SYMP Qualifiers: Lower urinary tract symptom presence: symptoms present Lower urinary tract symptom detail: urinary frequency Qualified Code(s): N40.1 - Benign prostatic hyperplasia with lower urinary tract symptoms; R35.0 - Frequency of micturition (8) Hyperlipemia Assessment/Plan: Continue Simvastatin Monitor LFTs Code(s): E78.5 - HYPERLIPIDEMIA, UNSPECIFIED Assessment/Plan This is a 83 y/o man with a past medical history of Dementia, HTN, CAD s/p Stent , HLD, CKD, BPH, recent admission 12/14-12/23 Hyperkalemia, CKD. Placed in Observation for Asymptomatic Anemia, CKD for further evaluation of their emergent condition. Plan: See Problem List FEN Fluid Restriction 1L Replete lytes prn Low Na, Renal Diet DVT ppx SCDs Code Status: Full Code Dispo: Observation Visit type - Emergency Visit Emergency Visit: Yes ED Registration Date: 01/09/19 Care time: The patient presented to the Emergency Department on the above date and was hospitalized for further evaluation of their emergent condition. - New Patient This patient is new to me today: Yes Date on this admission: 01/09/19 - Critical Care Critical Care patient: No
[2019-01-09 23:53] LABS: PLATELET ESTIMATE ADEQUATE
[2019-01-10 03:32] VITALS: BMI 22.5
[2019-01-10] MEDS ORDERED: FUROSEMIDE 40 MG/4 ML INJECTABLE VIAL IVPUSH ONE (07:00)
[2019-01-10 07:36] LABS: BASO % 1.1 % (0-2.0); EOS % 7.1 % (0-4.5); HEMATOCRIT 25.3 % (35.4-49); HEMOGLOBIN 8.6 GM/dL (11.7-16.9); MCH 30.9 pg (25.7-33.7); MCHC 33.9 g/dl (32.0-35.9); MEAN CELL VOLUME 91.3 fl (80-96); MEAN PLT VOLUME 7.8 fl (7.5-11.1); MONO % 11.7 % (3.8-10.2); NEUT % 61.1 % (42.8-82.8); PLATELET COUNT 283 K/MM3 (134-434); RBC 2.77 M/mm3 (4.00-5.60); RDW 16.3 % (11.9-15.9); WHITE BLOOD COUNT 6.8 K/mm3 (4.0-10.0)
[2019-01-10 08:19] LABS: ANION GAP 7 MMOL/L (8-16); BLOOD UREA NITROGEN 50 mg/dL (7-18); CALCIUM 8.2 mg/dL (8.5-10.1); CHLORIDE 111 mmol/L (98-107); CO2 23 mmol/L (21-32); CREATININE 1.7 mg/dL (0.55-1.3); GLUCOSE,RANDOM 82 mg/dL (74-106); POTASSIUM 4.7 mmol/L (3.5-5.1); SODIUM 141 mmol/L (136-145)
[2019-01-10] MEDS ORDERED: COLCHICINE 0.6 MG TABLET (FP) PO SCH (10:00)
[2019-01-10] MEDS ORDERED: CHOLECALCIFEROL (VITAMIN D3) 1,000 UNIT TABLET (FP) PO SCH (10:00)
[2019-01-10] MEDS ORDERED: TERAZOSIN HCL 5 MG CAPSULE PO SCH (10:00)
[2019-01-10] MEDS ORDERED: PATIENT'S OWN MEDICATION (NON-FORMULARY) (Iron/C/Folate 6/B12/Zn/Stomach [Chromagen Softge PO SCH (10:00)
[2019-01-10] MEDS ORDERED: METOPROLOL TARTRATE 25 MG TABLET (FP) PO SCH (10:00)
--- NOTE | 2019-01-10 11:56 | EKG ---
Test Reason : Blood Pressure : / mmHG Vent. Rate : 087 BPM Atrial Rate : 087 BPM P-R Int : 130 ms QRS Dur : 082 ms QT Int : 370 ms P-R-T Axes : 054 007 056 degrees QTc Int : 445 ms NORMAL SINUS RHYTHM NORMAL ECG WHEN COMPARED WITH ECG OF 14-DEC-2018 19:27, NONSPECIFIC T WAVE ABNORMALITY, IMPROVED IN LATERAL LEADS Confirmed by ZAYNAB DAVIS, KESHA ([id number]) on 01/10/2019 11:56:25 AM Referred By: Confirmed By:KESHA WORTHY MD
[2019-01-10] MEDS ORDERED: IRON SUCROSE INJECTION 300 MG in SODIUM CHLORIDE 235 ML IVPB ONE (12:15)
[2019-01-10 14:30] VITALS: BP 137/77; PULSE 93; TEMP 98.4
--- NOTE | 2019-01-10 16:29 | DS ---
Physical Examination Vital Signs: Vital Signs Temperature 36.9 C 01/10/19 14:00 Pulse Rate 93 H 01/10/19 14:00 Respiratory Rate 20 01/10/19 14:00 Blood Pressure 137/77 01/10/19 14:00 O2 Sat by Pulse Oximetry (%) 99 01/10/19 06:28 Constitutional: Yes: Well Nourished, No Distress, Calm Cardiovascular: Yes: Regular Rate and Rhythm. No: Gallop, Murmur, Rub Respiratory: Yes: Regular, CTA Bilaterally. No: Rales, Rhonchi, Wheezes Gastrointestinal: Yes: Normal Bowel Sounds, Soft. No: Distention, Tenderness Extremities: Yes: WNL Edema: No Labs: CBC, BMP 01/10/19 06:00 01/10/19 06:00 Discharge Summary Reason For Visit: ANEMIA OF CHRONIC DISEASE DEMENTIA Current Active Problems Abnormal renal function (Acute) Anemia of chronic disease (Acute) CAD (coronary artery disease) (Acute) CHF (congestive heart failure) (Acute) CKD (chronic kidney disease) (Acute) Hyperlipemia (Acute) Hospital Course: Mr Alcocer is an 83 year old male who presented for transfusion. He was admitted under observation and transfused one unit. He had a proper response. He is stable and safe for discharge back to [facility]. Recommend outpatient hematology and nephrology follow up. Will increase po iron. 32 minutes spent in preparation of this discharge Condition: Stable - Instructions Diet, Activity, Other Instructions: renal diet. up with assistance, further activity per PT at SNF. Referrals: Vu Herrmann MD [Staff Physician] - Leif Worthington MD [Staff Physician] - Disposition: NURSING HOME FACILITY - Home Medications Comprehensive Discharge Medication List: Ambulatory Orders Acetaminophen [Pain Relief] 650 mg PO QID PRN 01/09/19 Cholecalciferol (Vitamin D3) [Vitamin D3] 1,000 unit PO DAILY 01/09/19 Colchicine 0.6 mg PO DAILY 01/09/19 Docusate Sodium [Colace] 300 mg PO HS 01/09/19 Furosemide 20 mg PO DAILY 01/09/19 Iron/C/Folate 6/B12/Zn/Stomach [Chromagen Softgel] 1 each PO DAILY 01/09/19 Metoprolol Tartrate 25 mg PO BID 01/09/19 Sennosides [Senna Lax] 17.2 mg PO BID 01/09/19 Simvastatin 10 mg PO HS 01/09/19 Terazosin HCl 5 mg PO DAILY 01/09/19 Ferrous Sulfate [Feosol] 325 mg PO BID ud 01/10/19
[2019-01-10] MEDS ORDERED: ATORVASTATIN CA 10 MG TABLET (FP) PO SCH (22:00)
[2019-01-10] MEDS ORDERED: FERROUS SO4 325 MG TABLET (FP) PO SCH (22:00)
[2019-01-10] MEDS ORDERED: DOCUSATE SODIUM 100 MG CAPSULE (FP) PO SCH (22:00)
[2019-01-11] MEDS ORDERED: FUROSEMIDE 20 MG TABLET (FP) PO SCH (10:00)
== END 2019-01-10 17:28 ==
LOC: JER 21:31 → JERBED 23:44 → J6S 01-10 03:18
PROVIDERS: ADMIT Internal Medicine; ATTEND Internal Medicine
PROC: 30233N1 Transfusion of Nonautologous Red Blood Cells into Peripheral Vein, Percutaneous Approach (ICD-10-PCS; principal; 2019-01-09)
PROC: 3E033GC Introduction of Other Therapeutic Substance into Peripheral Vein, Percutaneous Approach (ICD-10-PCS; 2019-01-09)
DX: N18.9 Chronic kidney disease, unspecified (principal); D63.1 Anemia in chronic kidney disease; E78.5 Hyperlipidemia, unspecified; R94.4 Abnormal results of kidney function studies; I12.9 Hypertensive chronic kidney disease with stage 1 through stage 4 chronic kidney disease, or unspecified chronic kidney disease; I25.10 Atherosclerotic heart disease of native coronary artery without angina pectoris; N40.0 Benign prostatic hyperplasia without lower urinary tract symptoms; F03.90 Unspecified dementia, unspecified severity, without behavioral disturbance, psychotic disturbance, mood disturbance, and anxiety; I11.0 Hypertensive heart disease with heart failure; I50.9 Heart failure, unspecified; Z95.5 Presence of coronary angioplasty implant and graft
CPT/HCPCS: 36415; 36430; 36511; 71045-TC-FY; 80048; 80053; 82272; 85025; 85044; 85610; 86850; 86900; 86901; 86922; 93005; 93010; 96374; 99284-25; G0378; P9038; P9058

== ENCOUNTER 2022-12-28 10:06 | Observation (INO) | payer BC ==
[2022-12-28 10:18] VITALS: BMI 26.4
[2022-12-28 11:24] LABS: BASO % 0.8 % (0-2.0); HEMATOCRIT 30.4 % (35.4-49); LYMPH % 11.7 % (8-40); MCH 32.2 pg (25.7-33.7); MCHC 32.8 g/dl (32.0-35.9); MEAN CELL VOLUME 98.1 fl (80-96); MEAN PLT VOLUME 9.4 fl (7.5-11.1); MONO % 8.4 % (3.8-10.2); NEUT % 75.1 % (42.8-82.8); PLATELET COUNT 149 10^3/uL (134-434); RDW 14.4 % (11.9-15.9); WHITE BLOOD COUNT 7.8 K/mm3 (4.0-10.0)
[2022-12-28 11:40] LABS: VENOUS BASE EXCESS -3.5 mmol/L (-2-2); VENOUS O2 SATURATION 74.3 % (70-80); VENOUS PCO2 42.5 mmHg (38-52); VENOUS PH 7.336 (7.310-7.410)
[2022-12-28 11:44] LABS: CHLORIDE 110 mmol/L (98-107); SODIUM 139 mmol/L (136-145)
[2022-12-28 11:46] LABS: GLUCOSE,RANDOM 95 mg/dL (74-106)
[2022-12-28 11:48] LABS: ALBUMIN 3.4 g/dl (3.4-5.0); ANION GAP 6 MMOL/L (8-16); CO2 23 mmol/L (21-32); MAGNESIUM 2.3 mg/dL (1.8-2.4)
[2022-12-28 11:51] LABS: CREATININE 2.3 mg/dL (0.55-1.3); PHOSPHOROUS 3.4 mg/dL (2.5-4.9); SGOT/AST 109 U/L (15-37); SGPT/ALT 45 U/L (13-61)
[2022-12-28 11:53] LABS: TOT PROT 6.4 g/dl (6.4-8.2)
[2022-12-28 11:54] LABS: ALK PHOS 56 U/L (45-117)
[2022-12-28] MEDS ORDERED: SODIUM CHLORIDE 0.9% 500 ML INFUS.BAG IV ONE (13:24)
[2022-12-28] MEDS ORDERED: ACETAMINOPHEN 650 MG PO PRN (15:51)
[2022-12-28] MEDS ORDERED: LACTATED RINGERS SOLUTION 1,000 ML/1,000 ML INFUS.BAG IV SCH (16:00)
[2022-12-28 16:15] LABS: EPI CELLS 3 /uL (0-25.1); HYALINE CASTS 0 /uL (0-3.1); PH,URINE 5.5 (5.0-8.0); URINE APPEARANCE CLEAR; URINE BACTERIA 2 /uL (0-1359); URINE BILIRUBIN NEGATIVE (NEGATIVE); URINE COLOR YELLOW; URINE GLUCOSE (UA) NEGATIVE (NEGATIVE); URINE KETONE NEGATIVE (NEGATIVE); URINE LEUK ESTERASE NEGATIVE (NEGATIVE); URINE NITRITE NEGATIVE (NEGATIVE); URINE PROTEIN 2+ (NEGATIVE); URINE RBC 15 /uL (0-23.9); URINE UROBILINOGEN 0.2 mg/dL (0.2-1.0); URINE WBC 2 /uL (0-25.8)
[2022-12-28] MEDS ORDERED: SENNOSIDES 8.6MG TABLET (FP) PO SCH (22:00)
[2022-12-28] MEDS ORDERED: ATORVASTATIN CA 10 MG TABLET (FP) ONE (22:29)
[2022-12-28] MEDS ORDERED: SENNOSIDES 8.6MG TABLET (FP) PO ONE (22:29)
[2022-12-28] MEDS ORDERED: METOPROLOL TARTRATE 25 MG TABLET (FP) ONE (22:29)
[2022-12-28] MEDS ORDERED: FERROUS SO4 325 MG TABLET (FP) ONE (22:30)
[2022-12-28] MEDS ORDERED: ACETAMINOPHEN 325 MG TABLET (FP) ONE (22:30)
[2022-12-28] MEDS ORDERED: DOCUSATE SODIUM 100 MG CAPSULE (FP) PO ONE (22:30)
[2022-12-28] MEDS: FERROUS SO4 325 MG TABLET (FP) PO SCH (22:39)
[2022-12-28] MEDS: ACETAMINOPHEN 325 MG TABLET (FP) PO PRN (22:39)
[2022-12-28] MEDS: ATORVASTATIN CA 10 MG TABLET (FP) PO SCH (22:39)
[2022-12-28] MEDS: DOCUSATE SODIUM 100 MG CAPSULE (FP) PO SCH (22:39)
[2022-12-28] MEDS: SENNOSIDES 8.6MG TABLET (FP) PO SCH (22:39)
[2022-12-28] MEDS: METOPROLOL TARTRATE 25 MG TABLET (FP) PO SCH (22:39)
[2022-12-29] MEDS ORDERED: ACETAMINOPHEN 325 MG TABLET (FP) ONE (06:25)
[2022-12-29] MEDS: ACETAMINOPHEN 325 MG TABLET (FP) PO PRN ×2 (06:40→21:59)
[2022-12-29 08:10] LABS: BASO % 0.4 % (0-2.0); EOS % 2.2 % (0-4.5); HEMATOCRIT 27.2 % (35.4-49); HEMOGLOBIN 9.3 GM/dL (11.7-16.9); LYMPH % 5.9 % (8-40); MCH 33.2 pg (25.7-33.7); MCHC 34.1 g/dl (32.0-35.9); MEAN CELL VOLUME 97.4 fl (80-96); MEAN PLT VOLUME 9.6 fl (7.5-11.1); MONO % 11.3 % (3.8-10.2); NEUT % 80.2 % (42.8-82.8); PLATELET COUNT 137 10^3/uL (134-434); WHITE BLOOD COUNT 7.7 K/mm3 (4.0-10.0)
[2022-12-29 08:28] LABS: CALCIUM 8.3 mg/dL (8.5-10.1)
[2022-12-29] MEDS ORDERED: METOPROLOL TARTRATE 25 MG TABLET (FP) ONE (08:50)
[2022-12-29] MEDS ORDERED: SENNOSIDES 8.6MG TABLET (FP) PO ONE (08:50)
[2022-12-29] MEDS ORDERED: FERROUS SO4 325 MG TABLET (FP) ONE (08:51)
[2022-12-29] MEDS: SENNOSIDES 8.6MG TABLET (FP) PO SCH ×2 (09:10→22:00)
[2022-12-29] MEDS: TERAZOSIN HCL 5 MG CAPSULE PO SCH (09:10)
[2022-12-29] MEDS: METOPROLOL TARTRATE 25 MG TABLET (FP) PO SCH ×2 (09:10→21:59)
[2022-12-29] MEDS: FERROUS SO4 325 MG TABLET (FP) PO SCH ×2 (09:10→22:00)
[2022-12-29] MEDS: COLCHICINE 0.6 MG CAPSULE PO SCH (09:10)
[2022-12-29] MEDS: SODIUM CHLORIDE 0.45% 1,000 ML IV SCH (18:37)
[2022-12-29] MEDS: ATORVASTATIN CA 10 MG TABLET (FP) PO SCH (21:59)
[2022-12-29] MEDS: DOCUSATE SODIUM 100 MG CAPSULE (FP) PO SCH (22:00)
[2022-12-30 07:58] LABS: URIC ACID 5.5 mg/dL (2.6-7.2)
[2022-12-30 07:59] LABS: CREATININE 1.9 mg/dL (0.55-1.3)
[2022-12-30 08:00] LABS: BILIRUBIN,TOTAL 0.6 mg/dL (0.2-1); TOT PROT 5.2 g/dl (6.4-8.2)
[2022-12-30 08:20] LABS: ALBUMIN 2.5 g/dl (3.4-5.0)
[2022-12-30 08:48] LABS: BASO % 0.5 % (0-2.0); EOS % 2.4 % (0-4.5); HEMATOCRIT 25.2 % (35.4-49); HEMOGLOBIN 8.6 GM/dL (11.7-16.9); LYMPH % 9.8 % (8-40); MCH 33.3 pg (25.7-33.7); MCHC 34.2 g/dl (32.0-35.9); MEAN CELL VOLUME 97.3 fl (80-96); MEAN PLT VOLUME 9.7 fl (7.5-11.1); MONO % 13.1 % (3.8-10.2); NEUT % 74.2 % (42.8-82.8); PLATELET COUNT 125 10^3/uL (134-434); RBC 2.59 M/mm3 (4.00-5.60); RDW 14.2 % (11.9-15.9); WHITE BLOOD COUNT 7.6 K/mm3 (4.0-10.0)
[2022-12-30] MEDS ORDERED: LIDOCAINE HCL 1%, 10 MG/ML (20ML VIAL) SQ ONE (09:31)
[2022-12-30] MEDS ORDERED: methylPREDNISolone ACET (DEPO) 80 MG/1 ML VIAL IAR ONE ×2 (09:31)
[2022-12-30] MEDS: SODIUM CHLORIDE 0.45% 1,000 ML IV SCH (10:12)
[2022-12-30] MEDS: METOPROLOL TARTRATE 25 MG TABLET (FP) PO SCH ×2 (12:05→21:16)
[2022-12-30] MEDS: SENNOSIDES 8.6MG TABLET (FP) PO SCH ×2 (12:05→21:16)
[2022-12-30] MEDS: TERAZOSIN HCL 5 MG CAPSULE PO SCH (12:05)
[2022-12-30] MEDS: FERROUS SO4 325 MG TABLET (FP) PO SCH ×2 (12:05→21:16)
[2022-12-30] MEDS: COLCHICINE 0.6 MG CAPSULE PO SCH (12:05)
[2022-12-30] MEDS: ASPIRIN 81 MG CHEWABLE TABLETS PO SCH (12:05)
[2022-12-30] MEDS: PANTOPRAZOLE 40 MG TABLET PO SCH ×2 (13:56→21:16)
[2022-12-30] MEDS ORDERED: SODIUM CHLORIDE 0.45% 1,000 ML IV SCH (14:16)
[2022-12-30] MEDS: ACETAMINOPHEN 325 MG TABLET (FP) PO PRN ×2 (15:21→21:22)
[2022-12-30 19:19] LABS: HEMATOCRIT 25.6 % (35.4-49); HEMOGLOBIN 8.7 GM/dL (11.7-16.9); MCH 33.1 pg (25.7-33.7); MCHC 33.9 g/dl (32.0-35.9); MEAN CELL VOLUME 97.7 fl (80-96); MEAN PLT VOLUME 9.2 fl (7.5-11.1); PLATELET COUNT 118 10^3/uL (134-434); RBC 2.62 M/mm3 (4.00-5.60); WHITE BLOOD COUNT 7.7 K/mm3 (4.0-10.0)
[2022-12-30] MEDS: DOCUSATE SODIUM 100 MG CAPSULE (FP) PO SCH (21:15)
[2022-12-30] MEDS: ATORVASTATIN CA 10 MG TABLET (FP) PO SCH (21:16)
[2022-12-31 07:13] LABS: INR 1.24 (0.83-1.09); PROTHROMBIN TIME (PATIENT) 14.3 SEC (9.7-13.0)
[2022-12-31 07:15] LABS: HEMATOCRIT 26.9 % (35.4-49); MCH 32.7 pg (25.7-33.7); MCHC 33.3 g/dl (32.0-35.9); MEAN CELL VOLUME 98.1 fl (80-96); MEAN PLT VOLUME 9.2 fl (7.5-11.1); PLATELET COUNT 124 10^3/uL (134-434); RBC 2.74 M/mm3 (4.00-5.60); RDW 14.3 % (11.9-15.9); WHITE BLOOD COUNT 7.1 K/mm3 (4.0-10.0)
[2022-12-31 07:38] LABS: ALBUMIN 2.4 g/dl (3.4-5.0); CALCIUM 8.2 mg/dL (8.5-10.1)
[2022-12-31 07:39] LABS: BLOOD UREA NITROGEN 60.8 mg/dL (7-18)
[2022-12-31 07:42] LABS: CREATININE 2.2 mg/dL (0.55-1.3)
[2022-12-31 07:43] LABS: BILIRUBIN,TOTAL 0.5 mg/dL (0.2-1); TOT PROT 5.2 g/dl (6.4-8.2)
[2022-12-31] MEDS: ASPIRIN 81 MG CHEWABLE TABLETS PO SCH (10:01)
[2022-12-31] MEDS: METOPROLOL TARTRATE 25 MG TABLET (FP) PO SCH ×2 (10:01→22:03)
[2022-12-31] MEDS: SENNOSIDES 8.6MG TABLET (FP) PO SCH ×2 (10:01→22:03)
[2022-12-31] MEDS: PANTOPRAZOLE 40 MG TABLET PO SCH ×2 (10:02→22:04)
[2022-12-31] MEDS: FERROUS SO4 325 MG TABLET (FP) PO SCH ×2 (10:02→22:04)
[2022-12-31] MEDS: TERAZOSIN HCL 5 MG CAPSULE PO SCH (10:03)
[2022-12-31] MEDS: COLCHICINE 0.6 MG CAPSULE PO SCH (10:03)
[2022-12-31] MEDS: HEPARIN NA (PORCINE) 5,000 UNITS/ML 1ML VIAL SQ SCH ×2 (10:04→22:04)
[2022-12-31] MEDS: DOCUSATE SODIUM 100 MG CAPSULE (FP) PO SCH (22:03)
[2022-12-31] MEDS: ATORVASTATIN CA 10 MG TABLET (FP) PO SCH (22:04)
[2022-12-31] MEDS: ACETAMINOPHEN 325 MG TABLET (FP) PO PRN (22:04)
[2023-01-01] MEDS: FERROUS SO4 325 MG TABLET (FP) PO SCH ×2 (09:36→21:23)
[2023-01-01] MEDS: METOPROLOL TARTRATE 25 MG TABLET (FP) PO SCH ×2 (09:36→21:23)
[2023-01-01] MEDS: ASPIRIN 81 MG CHEWABLE TABLETS PO SCH (09:37)
[2023-01-01] MEDS: SENNOSIDES 8.6MG TABLET (FP) PO SCH ×2 (09:37→21:23)
[2023-01-01] MEDS: COLCHICINE 0.6 MG CAPSULE PO SCH (09:37)
[2023-01-01] MEDS: TERAZOSIN HCL 5 MG CAPSULE PO SCH (09:37)
[2023-01-01] MEDS: PANTOPRAZOLE 40 MG TABLET PO SCH ×2 (09:37→21:23)
[2023-01-01] MEDS: HEPARIN NA (PORCINE) 5,000 UNITS/ML 1ML VIAL SQ SCH ×2 (09:37→21:24)
[2023-01-01] MEDS: DOCUSATE SODIUM 100 MG CAPSULE (FP) PO SCH (21:23)
[2023-01-01] MEDS: ATORVASTATIN CA 10 MG TABLET (FP) PO SCH (21:24)
[2023-01-02] MEDS: METOPROLOL TARTRATE 25 MG TABLET (FP) PO SCH ×2 (09:55→21:49)
[2023-01-02] MEDS: PANTOPRAZOLE 40 MG TABLET PO SCH ×2 (09:55→21:49)
[2023-01-02] MEDS: HEPARIN NA (PORCINE) 5,000 UNITS/ML 1ML VIAL SQ SCH ×2 (09:55→21:49)
[2023-01-02] MEDS: SENNOSIDES 8.6MG TABLET (FP) PO SCH ×2 (09:55→21:49)
[2023-01-02] MEDS: COLCHICINE 0.6 MG CAPSULE PO SCH (09:56)
[2023-01-02] MEDS: ASPIRIN 81 MG CHEWABLE TABLETS PO SCH (09:56)
[2023-01-02] MEDS: FERROUS SO4 325 MG TABLET (FP) PO SCH ×2 (09:56→21:49)
[2023-01-02] MEDS: TERAZOSIN HCL 5 MG CAPSULE PO SCH (09:56)
[2023-01-02] MEDS ORDERED: LORazepam 2 MG/ML SDV VIAL IVPUSH ONE (19:45)
[2023-01-02] MEDS: ATORVASTATIN CA 10 MG TABLET (FP) PO SCH (21:49)
[2023-01-02] MEDS: DOCUSATE SODIUM 100 MG CAPSULE (FP) PO SCH (21:52)
[2023-01-02] MEDS: CLINDAMYCIN 300 MG PREMIX IVPB 300 MG/50 ML BAG IVPB SCH (23:51)
[2023-01-03] MEDS: CLINDAMYCIN 300 MG PREMIX IVPB 300 MG/50 ML BAG IVPB SCH (04:49)
[2023-01-03] MEDS: FERROUS SO4 325 MG TABLET (FP) PO SCH (09:40)
[2023-01-03] MEDS: COLCHICINE 0.6 MG CAPSULE PO SCH (09:40)
[2023-01-03] MEDS: HEPARIN NA (PORCINE) 5,000 UNITS/ML 1ML VIAL SQ SCH (09:40)
[2023-01-03] MEDS: PANTOPRAZOLE 40 MG TABLET PO SCH (09:41)
[2023-01-03] MEDS: METOPROLOL TARTRATE 25 MG TABLET (FP) PO SCH (09:41)
[2023-01-03] MEDS: ASPIRIN 81 MG CHEWABLE TABLETS PO SCH (09:41)
[2023-01-03] MEDS: TERAZOSIN HCL 5 MG CAPSULE PO SCH (09:41)
[2023-01-03] MEDS: SENNOSIDES 8.6MG TABLET (FP) PO SCH (09:42)
[2023-01-03] MEDS: AMOX TR/POT CLAV 500MG/125MG TABLETS (FP) PO SCH ×2 (11:09→16:53)
[2023-01-03 18:15] VITALS: BP 133/66; PULSE 95; RESP 18; TEMP 98.9
== END 2023-01-03 18:28 ==
LOC: JER 10:06 → JERBED 14:00 → J4S 12-29 10:22
PROVIDERS: ADMIT Internal Medicine; ATTEND Family Medicine
PROC: 3E03329 Introduction of Other Anti-infective into Peripheral Vein, Percutaneous Approach (ICD-10-PCS; principal; 2022-12-28)
PROC: 3E023GC Introduction of Other Therapeutic Substance into Muscle, Percutaneous Approach (ICD-10-PCS; 2022-12-28)
PROC: 3E0337Z Introduction of Electrolytic and Water Balance Substance into Peripheral Vein, Percutaneous Approach (ICD-10-PCS; 2022-12-28)
PROC: 3E033NZ Introduction of Analgesics, Hypnotics, Sedatives into Peripheral Vein, Percutaneous Approach (ICD-10-PCS; 2022-12-28)
DX: N17.9 Acute kidney failure, unspecified (principal); R62.7 Adult failure to thrive; M62.82 Rhabdomyolysis; M17.9 Osteoarthritis of knee, unspecified; D63.1 Anemia in chronic kidney disease; I25.10 Atherosclerotic heart disease of native coronary artery without angina pectoris; F03.90 Unspecified dementia, unspecified severity, without behavioral disturbance, psychotic disturbance, mood disturbance, and anxiety; R01.1 Cardiac murmur, unspecified
CPT/HCPCS: 0241U-QW; 36415; 70450-TC; 71045-TC-FY; 72125-TC; 76705-TC; 80048; 80053; 80307; 81003; 82272; 82550; 82553; 82607; 82728; 82803; 82962; 83540; 83550; 83735; 84100; 84443; 84484; 84550; 85025; 85027; 85610; 85651; 86140; 86780; 87040; 87086; 93005; 93010; 93306-TC; 94010; 96361; 96365; 96372; 96375; 97116-GP; 97162-GP; 99285-25; C9803-CS; G0378; J1644; U0003; U0005

== ENCOUNTER 2023-01-14 18:25 | Observation (INO) | payer BC ==
[2023-01-14 18:43] VITALS: BMI 21.9
[2023-01-14 19:56] LABS: VENOUS BASE EXCESS -6.7 mmol/L (-2-2); VENOUS O2 SATURATION 58.1 % (70-80); VENOUS PCO2 43.7 mmHg (38-52); VENOUS PH 7.273 (7.310-7.410)
[2023-01-14 20:14] LABS: BASO % 0.7 % (0-2.0); EOS % 4.3 % (0-4.5); HEMATOCRIT 28.9 % (35.4-49); HEMOGLOBIN 9.3 GM/dL (11.7-16.9); LYMPH % 9.6 % (8-40); MCH 31.5 pg (25.7-33.7); MEAN CELL VOLUME 98.3 fl (80-96); MEAN PLT VOLUME 8.3 fl (7.5-11.1); MONO % 7.5 % (3.8-10.2); NEUT % 77.9 % (42.8-82.8); PLATELET COUNT 214 10^3/uL (134-434); RBC 2.94 M/mm3 (4.00-5.60); RDW 15.6 % (11.9-15.9); WHITE BLOOD COUNT 7.4 K/mm3 (4.0-10.0)
[2023-01-14] MEDS ORDERED: CALCIUM GLUCONATE 10% - 1,000 MG/10 ML VIAL IVPB ONE (20:19)
[2023-01-14] MEDS ORDERED: ALBUTEROL SO4 0.083% IH SOL 2.5 MG/3 ML VIAL.NEB. NEB ONE (20:21)
[2023-01-14] MEDS ORDERED: ALBUTEROL SO4 HFA INHALER IH ONE ×2 (20:22→20:47)
[2023-01-14] MEDS ORDERED: SODIUM ZIRCONIUM CYCLOSILICATE (LOKELMA) 5 GM PACKET PO ONE (20:22)
[2023-01-14] MEDS ORDERED: LACTATED RINGERS SOLUTION 1000 ML INFUS.BAG IV ONE (20:22)
[2023-01-14 20:23] LABS: BLOOD UREA NITROGEN 55.1 mg/dL (7-18); CALCIUM 8.5 mg/dL (8.5-10.1); MAGNESIUM 2.1 mg/dL (1.8-2.4)
[2023-01-14 20:26] LABS: CREATININE 1.8 mg/dL (0.55-1.3)
[2023-01-14 20:27] LABS: PHOSPHOROUS 4.2 mg/dL (2.5-4.9)
[2023-01-14 20:28] LABS: BILIRUBIN,TOTAL 0.3 mg/dL (0.2-1); TOT PROT 6.2 g/dl (6.4-8.2)
[2023-01-14] MEDS ORDERED: CALCIUM GLUC IN NACL, ISO-OSM 1 GM/50 ML BAG IVPB ONE (20:47)
[2023-01-14] MEDS ORDERED: SODIUM ZIRCONIUM CYCLOSILICATE (LOKELMA) 5 GM PACKET ONE (20:47)
[2023-01-15 00:05] LABS: ALBUMIN 2.8 g/dl (3.4-5.0); CALCIUM 8.5 mg/dL (8.5-10.1)
[2023-01-15] MEDS ORDERED: INSULIN REGULAR HUMAN 100 UNITS/ML *VIAL IVPUSH ONE (00:05)
[2023-01-15 00:06] LABS: BLOOD UREA NITROGEN 55.3 mg/dL (7-18)
[2023-01-15] MEDS ORDERED: DEXTROSE 50%-WATER - 25 GM/50 ML VIAL IVPUSH ONE ×2 (00:06→05:06)
[2023-01-15] MEDS ORDERED: DEXTROSE 50%-WATER 25 GM/50 ML DISP.SYRIN ONE ×2 (00:08→05:06)
[2023-01-15 00:09] LABS: CREATININE 1.6 mg/dL (0.55-1.3)
[2023-01-15] MEDS ORDERED: INSULIN REGULAR HUMAN 100 UNITS/ML *VIAL ONE (00:09)
[2023-01-15 00:10] LABS: BILIRUBIN,TOTAL 0.3 mg/dL (0.2-1); TOT PROT 5.7 g/dl (6.4-8.2)
[2023-01-15] MEDS ORDERED: DEXTROSE 4 GM TAB.CHEW PO ONE (05:32)
[2023-01-15 08:00] LABS: BASO % 0.3 % (0-2.0); EOS % 0.8 % (0-4.5); HEMATOCRIT 28.6 % (35.4-49); HEMOGLOBIN 9.4 GM/dL (11.7-16.9); LYMPH % 5.6 % (8-40); MCH 32.9 pg (25.7-33.7); MCHC 32.8 g/dl (32.0-35.9); MEAN CELL VOLUME 100.3 fl (80-96); MEAN PLT VOLUME 8.6 fl (7.5-11.1); MONO % 6.2 % (3.8-10.2); NEUT % 87.1 % (42.8-82.8); PLATELET COUNT 219 10^3/uL (134-434); RBC 2.85 M/mm3 (4.00-5.60); RDW 15.6 % (11.9-15.9); WHITE BLOOD COUNT 9.8 K/mm3 (4.0-10.0)
[2023-01-15 09:03] LABS: BILIRUBIN,TOTAL 0.4 mg/dL (0.2-1); BLOOD UREA NITROGEN 48.4 mg/dL (7-18); CALCIUM 8.4 mg/dL (8.5-10.1); CREATININE 1.6 mg/dL (0.55-1.3); TOT PROT 5.9 g/dl (6.4-8.2)
[2023-01-15] MEDS ORDERED: METOPROLOL TARTRATE 25 MG TABLET (FP) PO SCH (10:00)
[2023-01-15] MEDS: PANTOPRAZOLE 40 MG TABLET PO SCH ×2 (11:00→21:28)
[2023-01-15] MEDS: ASPIRIN 81 MG CHEWABLE TABLETS PO SCH (11:00)
[2023-01-15] MEDS: METOPROLOL TARTRATE 25 MG TABLET (FP) PO SCH ×2 (11:00→21:28)
[2023-01-15] MEDS ORDERED: PANTOPRAZOLE 40 MG TABLET PO ONE (11:19)
[2023-01-15] MEDS ORDERED: METOPROLOL TARTRATE 25 MG TABLET (FP) ONE (11:19)
[2023-01-15] MEDS ORDERED: ASPIRIN 81 MG CHEWABLE TABLETS ONE (11:19)
[2023-01-15] MEDS: INSULIN SLIDING SCALE (NOVOLOG) 1 VIAL SQ SCH ×3 (11:58→21:28)
[2023-01-15 12:32] LABS: EPI CELLS 1 /uL (0-25.1); HYALINE CASTS 0 /uL (0-3.1); URINE APPEARANCE CLEAR; URINE BACTERIA 3 /uL (0-1359); URINE BILIRUBIN NEGATIVE (NEGATIVE); URINE COLOR YELLOW; URINE GLUCOSE (UA) NEGATIVE (NEGATIVE); URINE KETONE NEGATIVE (NEGATIVE); URINE LEUK ESTERASE NEGATIVE (NEGATIVE); URINE NITRITE NEGATIVE (NEGATIVE); URINE PROTEIN 2+ (NEGATIVE); URINE RBC 6 /uL (0-23.9); URINE UROBILINOGEN 0.2 mg/dL (0.2-1.0); URINE WBC 2 /uL (0-25.8)
[2023-01-15] MEDS: ATORVASTATIN CA 10 MG TABLET (FP) PO SCH (21:30)
[2023-01-16] MEDS: INSULIN SLIDING SCALE (NOVOLOG) 1 VIAL SQ SCH ×4 (06:28→22:02)
[2023-01-16 07:55] LABS: CHLORIDE 116 mmol/L (98-107); SODIUM 139 mmol/L (136-145)
[2023-01-16 07:58] LABS: BLOOD UREA NITROGEN 57.4 mg/dL (7-18); CALCIUM 8.2 mg/dL (8.5-10.1); CO2 22 mmol/L (21-32); GLUCOSE,RANDOM 85 mg/dL (74-106)
[2023-01-16 08:48] LABS: ANION GAP 1 MMOL/L (8-16)
[2023-01-16] MEDS: METOPROLOL TARTRATE 25 MG TABLET (FP) PO SCH ×2 (09:18→21:57)
[2023-01-16] MEDS: ASPIRIN 81 MG CHEWABLE TABLETS PO SCH (09:18)
[2023-01-16] MEDS: PANTOPRAZOLE 40 MG TABLET PO SCH ×2 (09:18→21:57)
[2023-01-16] MEDS: SODIUM ZIRCONIUM CYCLOSILICATE (LOKELMA) 5 GM PACKET PO SCH (11:57)
[2023-01-16] MEDS ORDERED: SODIUM ZIRCONIUM CYCLOSILICATE (LOKELMA) 5 GM PACKET PO ONE (15:00)
[2023-01-16] MEDS: ATORVASTATIN CA 10 MG TABLET (FP) PO SCH (21:56)
[2023-01-17] MEDS: INSULIN SLIDING SCALE (NOVOLOG) 1 VIAL SQ SCH ×4 (06:12→22:46)
[2023-01-17 08:03] LABS: HEMOGLOBIN 9.1 GM/dL (11.7-16.9); MCH 31.7 pg (25.7-33.7); MCHC 32.7 g/dl (32.0-35.9); MEAN CELL VOLUME 96.9 fl (80-96); MEAN PLT VOLUME 8.9 fl (7.5-11.1); PLATELET COUNT 159 10^3/uL (134-434); RBC 2.88 M/mm3 (4.00-5.60); RDW 15.3 % (11.9-15.9); WHITE BLOOD COUNT 6.9 K/mm3 (4.0-10.0)
[2023-01-17 08:38] LABS: CALCIUM 8.5 mg/dL (8.5-10.1)
[2023-01-17 08:39] LABS: BLOOD UREA NITROGEN 61.6 mg/dL (7-18)
[2023-01-17 08:42] LABS: CREATININE 1.9 mg/dL (0.55-1.3)
[2023-01-17] MEDS: ASPIRIN 81 MG CHEWABLE TABLETS PO SCH (09:48)
[2023-01-17] MEDS: PANTOPRAZOLE 40 MG TABLET PO SCH ×2 (09:49→21:43)
[2023-01-17] MEDS: METOPROLOL TARTRATE 25 MG TABLET (FP) PO SCH ×2 (09:49→21:42)
[2023-01-17] MEDS: SODIUM ZIRCONIUM CYCLOSILICATE (LOKELMA) 5 GM PACKET PO SCH (12:41)
[2023-01-17] MEDS: ATORVASTATIN CA 10 MG TABLET (FP) PO SCH (21:42)
[2023-01-18] MEDS: INSULIN SLIDING SCALE (NOVOLOG) 1 VIAL SQ SCH ×4 (06:19→21:48)
[2023-01-18 08:54] LABS: CALCIUM 8.7 mg/dL (8.5-10.1)
[2023-01-18 08:55] LABS: BLOOD UREA NITROGEN 60.4 mg/dL (7-18)
[2023-01-18 08:58] LABS: CREATININE 1.8 mg/dL (0.55-1.3)
[2023-01-18] MEDS: METOPROLOL TARTRATE 25 MG TABLET (FP) PO SCH ×2 (09:02→21:12)
[2023-01-18] MEDS: ASPIRIN 81 MG CHEWABLE TABLETS PO SCH (09:02)
[2023-01-18] MEDS: PANTOPRAZOLE 40 MG TABLET PO SCH ×2 (09:02→21:12)
[2023-01-18] MEDS: SODIUM ZIRCONIUM CYCLOSILICATE (LOKELMA) 5 GM PACKET PO SCH (09:02)
[2023-01-18 11:31] LABS: ALBUMIN 3.2 g/dl (3.4-5.0)
[2023-01-18 11:34] LABS: BILIRUBIN,DIRECT 0.2 mg/dL (0.0-0.2)
[2023-01-18 11:36] LABS: BILIRUBIN,TOTAL 0.7 mg/dL (0.2-1); TOT PROT 6.3 g/dl (6.4-8.2)
[2023-01-18 15:03] VITALS: RESP 18
[2023-01-18] MEDS: ATORVASTATIN CA 10 MG TABLET (FP) PO SCH (21:12)
[2023-01-19] MEDS: INSULIN SLIDING SCALE (NOVOLOG) 1 VIAL SQ SCH ×4 (06:23→21:05)
[2023-01-19] MEDS: PANTOPRAZOLE 40 MG TABLET PO SCH ×2 (09:23→20:59)
[2023-01-19] MEDS: SODIUM ZIRCONIUM CYCLOSILICATE (LOKELMA) 5 GM PACKET PO SCH (09:23)
[2023-01-19] MEDS: METOPROLOL TARTRATE 25 MG TABLET (FP) PO SCH ×2 (09:23→20:59)
[2023-01-19] MEDS: ASPIRIN 81 MG CHEWABLE TABLETS PO SCH (09:23)
[2023-01-19] MEDS: ATORVASTATIN CA 10 MG TABLET (FP) PO SCH (20:59)
[2023-01-20] MEDS: INSULIN SLIDING SCALE (NOVOLOG) 1 VIAL SQ SCH ×4 (06:57→21:33)
[2023-01-20] MEDS: ASPIRIN 81 MG CHEWABLE TABLETS PO SCH (09:06)
[2023-01-20] MEDS: PANTOPRAZOLE 40 MG TABLET PO SCH ×2 (09:06→21:33)
[2023-01-20] MEDS: METOPROLOL TARTRATE 25 MG TABLET (FP) PO SCH ×2 (09:07→21:33)
[2023-01-20] MEDS: SODIUM ZIRCONIUM CYCLOSILICATE (LOKELMA) 5 GM PACKET PO SCH (09:07)
[2023-01-20] MEDS: ATORVASTATIN CA 10 MG TABLET (FP) PO SCH (21:33)
[2023-01-21 00:02] VITALS: BP 150/61; PULSE 72; TEMP 97.4
[2023-01-24 20:07] LABS: RENIN ACTIVITY(PRA) 0.388 ng/mL/hr (0.167-5.380)
== END 2023-01-20 23:50 | disposition home or self-care (01) ==
LOC: JER 18:25 → JERBED 01-15 00:19 → J4W 01-15 13:36
PROVIDERS: ADMIT Internal Medicine; ATTEND Family Medicine
PROC: 3E033VG Introduction of Insulin into Peripheral Vein, Percutaneous Approach (ICD-10-PCS; principal; 2023-01-15)
PROC: 3E033GC Introduction of Other Therapeutic Substance into Peripheral Vein, Percutaneous Approach (ICD-10-PCS; 2023-01-15)
PROC: 3E0337Z Introduction of Electrolytic and Water Balance Substance into Peripheral Vein, Percutaneous Approach (ICD-10-PCS; 2023-01-15)
PROC: 3E0F7SF Introduction of Other Gas into Respiratory Tract, Via Natural or Artificial Opening (ICD-10-PCS; 2023-01-15)
DX: E87.5 Hyperkalemia (principal); E11.22 Type 2 diabetes mellitus with diabetic chronic kidney disease; I12.9 Hypertensive chronic kidney disease with stage 1 through stage 4 chronic kidney disease, or unspecified chronic kidney disease; N18.9 Chronic kidney disease, unspecified; N17.9 Acute kidney failure, unspecified; E78.5 Hyperlipidemia, unspecified; I25.10 Atherosclerotic heart disease of native coronary artery without angina pectoris; D64.9 Anemia, unspecified; F03.90 Unspecified dementia, unspecified severity, without behavioral disturbance, psychotic disturbance, mood disturbance, and anxiety; N40.0 Benign prostatic hyperplasia without lower urinary tract symptoms; R76.8 Other specified abnormal immunological findings in serum; Z95.5 Presence of coronary angioplasty implant and graft
CPT/HCPCS: 0241U-QW; 36415; 80048; 80053; 80076; 81003; 82088; 82533; 82550; 82553; 82570; 82803; 82962; 83735; 84100; 84133; 84244; 85025; 85027; 93005; 93010; 93971; 96374; 96375; 97116-GP; 97161-GP; 99285-25; G0378

== ENCOUNTER 2023-02-15 13:18 | Observation (INO) | payer BC ==
[2023-02-15 14:37] LABS: EOS % 4.7 % (0-4.5); HEMATOCRIT 25.8 % (35.4-49); HEMOGLOBIN 8.5 GM/dL (11.7-16.9); LYMPH % 16.9 % (8-40); MCH 32.2 pg (25.7-33.7); MCHC 33.1 g/dl (32.0-35.9); MEAN CELL VOLUME 97.2 fl (80-96); MEAN PLT VOLUME 9.4 fl (7.5-11.1); MONO % 8.9 % (3.8-10.2); NEUT % 68.5 % (42.8-82.8); PLATELET COUNT 127 10^3/uL (134-434); RBC 2.65 M/mm3 (4.00-5.60); RDW 15.2 % (11.9-15.9); WHITE BLOOD COUNT 4.8 K/mm3 (4.0-10.0)
[2023-02-15 15:21] LABS: ERYTHROCYTE SEDIMENTATION RATE 22 mm/hr (0-20)
[2023-02-15 15:23] LABS: CHLORIDE 115 mmol/L (98-107); SODIUM 141 mmol/L (136-145)
[2023-02-15 15:27] LABS: ALBUMIN 3.1 g/dl (3.4-5.0); ANION GAP 3 MMOL/L (8-16); BLOOD UREA NITROGEN 63.8 mg/dL (7-18); CALCIUM 8.9 mg/dL (8.5-10.1); CO2 23 mmol/L (21-32); MAGNESIUM 2.3 mg/dL (1.8-2.4)
[2023-02-15 15:28] LABS: GLUCOSE,RANDOM 91 mg/dL (74-106)
[2023-02-15 15:30] LABS: CREATININE 2.1 mg/dL (0.55-1.3)
[2023-02-15 15:31] LABS: BILIRUBIN,TOTAL 0.4 mg/dL (0.2-1); SGOT/AST 25 U/L (15-37); SGPT/ALT 42 U/L (13-61); TOT PROT 5.9 g/dl (6.4-8.2)
[2023-02-15 15:33] LABS: ALK PHOS 53 U/L (45-117)
[2023-02-15] MEDS ORDERED: VANCOMYCIN 1 GM in D5W (PRE-DOCKED) 1,000 MG/250 ML IVPB ONE (15:34)
[2023-02-15] MEDS ORDERED: PIPERACILLIN/TAZOB 4.5 GM 4.5 GM in DEXTROSE 5%-WATER 100 ML IVPB ONE (15:34)
[2023-02-15] MEDS ORDERED: PIPERACILLIN/TAZOB 4.5 GM 4.5 GM/100 ML BAG IVPB ONE (15:52)
[2023-02-15] MEDS ORDERED: VANCOMYCIN/WATER FOR INJ (PEG) 1,000 MG/200 ML BAG IVPB ONE (15:52)
[2023-02-15] MEDS ORDERED: ACETAMINOPHEN 650 MG PO PRN (15:52)
[2023-02-15] MEDS ORDERED: ACETAMINOPHEN 325 MG TABLET (FP) PO PRN (16:03)
[2023-02-15 17:31] VITALS: BMI 25.9
[2023-02-15] MEDS ORDERED: PIPERACILLIN/TAZOB 2.25 GM 2.25 GM in DEXTROSE 5%-WATER - 50 ML IVPB SCH (18:00)
[2023-02-15 18:26] VITALS: RESP 18
[2023-02-15] MEDS: PANTOPRAZOLE 40 MG TABLET PO SCH (22:00)
[2023-02-15] MEDS: SENNOSIDES 8.6MG TABLET (FP) PO SCH (22:00)
[2023-02-15] MEDS: METOPROLOL TARTRATE 25 MG TABLET (FP) PO SCH (22:01)
[2023-02-15] MEDS: HEPARIN NA (PORCINE) 5,000 UNITS/ML 1ML VIAL SQ SCH (22:01)
[2023-02-15] MEDS: DOCUSATE SODIUM 100 MG CAPSULE (FP) PO SCH (22:01)
[2023-02-15] MEDS: ATORVASTATIN CA 10 MG TABLET (FP) PO SCH (22:01)
[2023-02-15] MEDS: CEFAZOLIN 1 GM in DEXTROSE 5%-WATER - 50 ML IVPB SCH (22:02)
[2023-02-16 08:53] LABS: BASO % 1.2 % (0-2.0); EOS % 7.2 % (0-4.5); HEMATOCRIT 24.4 % (35.4-49); HEMOGLOBIN 8.2 GM/dL (11.7-16.9); LYMPH % 21.5 % (8-40); MCH 32.2 pg (25.7-33.7); MCHC 33.6 g/dl (32.0-35.9); MEAN CELL VOLUME 95.7 fl (80-96); MEAN PLT VOLUME 9.8 fl (7.5-11.1); MONO % 9.1 % (3.8-10.2); PLATELET COUNT 117 10^3/uL (134-434); RBC 2.55 M/mm3 (4.00-5.60); RDW 15.2 % (11.9-15.9); WHITE BLOOD COUNT 4.3 K/mm3 (4.0-10.0)
[2023-02-16 09:15] LABS: ALBUMIN 2.8 g/dl (3.4-5.0)
[2023-02-16 09:16] LABS: CALCIUM 8.7 mg/dL (8.5-10.1)
[2023-02-16 09:17] LABS: MAGNESIUM 2.1 mg/dL (1.8-2.4)
[2023-02-16 09:19] LABS: CREATININE 2.1 mg/dL (0.55-1.3)
[2023-02-16 09:21] LABS: BILIRUBIN,TOTAL 0.5 mg/dL (0.2-1); TOT PROT 5.4 g/dl (6.4-8.2)
[2023-02-16] MEDS ORDERED: SODIUM ZIRCONIUM CYCLOSILICATE (LOKELMA) 5 GM PACKET PO SCH (10:00)
[2023-02-16] MEDS: CEFAZOLIN 1 GM in DEXTROSE 5%-WATER - 50 ML IVPB SCH ×2 (10:00→21:39)
[2023-02-16] MEDS: PANTOPRAZOLE 40 MG TABLET PO SCH ×2 (10:03→21:43)
[2023-02-16] MEDS: METOPROLOL TARTRATE 25 MG TABLET (FP) PO SCH ×2 (10:03→21:43)
[2023-02-16] MEDS: HEPARIN NA (PORCINE) 5,000 UNITS/ML 1ML VIAL SQ SCH ×2 (10:03→21:45)
[2023-02-16] MEDS: SENNOSIDES 8.6MG TABLET (FP) PO SCH ×2 (10:04→21:42)
[2023-02-16] MEDS: TAMSULOSIN HCL 0.4 MG CAP PO SCH (10:15)
[2023-02-16] MEDS: ASPIRIN 81 MG CHEWABLE TABLETS PO SCH (10:15)
[2023-02-16] MEDS ORDERED: IRON SUCROSE INJECTION 200 MG in SODIUM CHLORIDE 90 ML IVPB ONE (15:08)
[2023-02-16] MEDS: DOCUSATE SODIUM 100 MG CAPSULE (FP) PO SCH (21:41)
[2023-02-16] MEDS: ATORVASTATIN CA 10 MG TABLET (FP) PO SCH (21:42)
[2023-02-17] MEDS: CEFAZOLIN 1 GM in DEXTROSE 5%-WATER - 50 ML IVPB SCH (10:18)
[2023-02-17] MEDS: HEPARIN NA (PORCINE) 5,000 UNITS/ML 1ML VIAL SQ SCH (10:19)
[2023-02-17] MEDS: PANTOPRAZOLE 40 MG TABLET PO SCH (10:19)
[2023-02-17] MEDS: ASPIRIN 81 MG CHEWABLE TABLETS PO SCH (10:19)
[2023-02-17] MEDS: TAMSULOSIN HCL 0.4 MG CAP PO SCH (10:19)
[2023-02-17] MEDS: SENNOSIDES 8.6MG TABLET (FP) PO SCH (10:19)
[2023-02-17] MEDS: METOPROLOL TARTRATE 25 MG TABLET (FP) PO SCH (10:19)
[2023-02-17 11:39] VITALS: BP 167/75; PULSE 67; TEMP 97.9
== END 2023-02-17 15:34 | disposition home health service (06) ==
LOC: JER 13:18 → JERBED 15:52 → J8W 19:10
PROVIDERS: ADMIT Family Medicine; ATTEND Family Medicine
PROC: 3E023GC Introduction of Other Therapeutic Substance into Muscle, Percutaneous Approach (ICD-10-PCS; principal; 2023-02-15)
PROC: 3E03329 Introduction of Other Anti-infective into Peripheral Vein, Percutaneous Approach (ICD-10-PCS; 2023-02-15)
DX: L03.90 Cellulitis, unspecified (principal); R76.8 Other specified abnormal immunological findings in serum; F03.90 Unspecified dementia, unspecified severity, without behavioral disturbance, psychotic disturbance, mood disturbance, and anxiety; E11.22 Type 2 diabetes mellitus with diabetic chronic kidney disease; I12.9 Hypertensive chronic kidney disease with stage 1 through stage 4 chronic kidney disease, or unspecified chronic kidney disease; N18.9 Chronic kidney disease, unspecified; I25.10 Atherosclerotic heart disease of native coronary artery without angina pectoris; Z87.891 Personal history of nicotine dependence; E87.5 Hyperkalemia; N40.0 Benign prostatic hyperplasia without lower urinary tract symptoms
CPT/HCPCS: 36415; 71045-TC-FY; 73552-TC-RT-FY; 80053; 82728; 83540; 83550; 83735; 84443; 84484; 85025; 85651; 86140; 86850; 86900; 86901; 87040; 93005; 93010; 93970-TC; 96365; 96366; 96372; 96375; 97116-GP; 97161-GP; 99285-25; C9803-CS; G0378; J1644; J1756; U0003; U0005

== ENCOUNTER 2023-09-06 14:18 | Inpatient (IN) | payer BC ==
[2023-09-06] MEDS ORDERED: PIPERACILLIN/TAZOB 4.5 GM 4.5 GM in DEXTROSE 5%-WATER 100 ML IVPB ONE (15:31)
[2023-09-06] MEDS ORDERED: VANCOMYCIN 1,000 MG in DEXTROSE 5%-WATER - 250 ML IVPB ONE (15:31)
[2023-09-06 15:42] LABS: BASO % 0.6 % (0-2.0); EOS % 4.3 % (0-4.5); HEMATOCRIT 26.4 % (35.4-49); HEMOGLOBIN 8.7 GM/dL (11.7-16.9); LYMPH % 12.4 % (8-40); MCHC 32.9 g/dl (32.0-35.9); MEAN CELL VOLUME 97.2 fl (80-96); MONO % 8.8 % (3.8-10.2); NEUT % 73.9 % (42.8-82.8); PLATELET COUNT 188 10^3/uL (134-434); RBC 2.72 M/mm3 (4.00-5.60); RDW 14.2 % (11.9-15.9); WHITE BLOOD COUNT 5.3 K/mm3 (4.0-10.0)
[2023-09-06 15:52] LABS: ACTIVATED PTT 32.1 SECONDS (25.2-36.5); INR 1.11 (0.83-1.09); PROTHROMBIN TIME (PATIENT) 12.9 SEC (9.7-13.0)
[2023-09-06] MEDS ORDERED: VANCOMYCIN 1 GRAM (PRE-DOCKED) 1,000 MG/250 ML BAG IVPB ONE (15:52)
[2023-09-06] MEDS ORDERED: PIPERACILLIN/TAZOB 4.5 GM 4.5 GM/100 ML BAG IVPB ONE (15:52)
[2023-09-06 16:05] LABS: POTASSIUM 5.2 mmol/L (3.5-5.1)
[2023-09-06 16:07] LABS: CALCIUM 8.6 mg/dL (8.5-10.1)
[2023-09-06 16:11] LABS: CREATININE 2.3 mg/dL (0.55-1.3)
[2023-09-06 16:13] LABS: TOT PROT 6.2 g/dl (6.4-8.2)
[2023-09-06 16:14] LABS: BILIRUBIN,TOTAL 0.5 mg/dL (0.2-1)
[2023-09-06 16:18] LABS: ERYTHROCYTE SEDIMENTATION RATE 51 mm/hr (0-20)
[2023-09-06] MEDS ORDERED: DOCUSATE SODIUM 100 MG CAPSULE (FP) PO PRN (20:16)
[2023-09-06] MEDS ORDERED: SODIUM CHLORIDE 1,000 ML IV SCH (20:30)
[2023-09-06] MEDS: INSULIN SLIDING SCALE (NOVOLOG) 1 VIAL SQ SCH (22:17)
[2023-09-07 00:03] VITALS: BMI 20.2
[2023-09-07] MEDS: PIPERACILLIN/TAZOB 2.25 GM 2.25 GM in DEXTROSE 5%-WATER - 50 ML IVPB SCH ×3 (01:54→17:44)
[2023-09-07] MEDS: INSULIN SLIDING SCALE (NOVOLOG) 1 VIAL SQ SCH ×4 (06:29→21:41)
[2023-09-07] MEDS ORDERED: METOPROLOL TARTRATE 25 MG TABLET (FP) PO SCH (10:00)
[2023-09-07] MEDS ORDERED: SODIUM ZIRCONIUM CYCLOSILICATE (LOKELMA) 5 GM PACKET PO SCH (10:00)
[2023-09-07] MEDS: PANTOPRAZOLE 40 MG TABLET PO SCH ×2 (10:43→21:41)
[2023-09-07] MEDS: TAMSULOSIN HCL 0.4 MG CAP PO SCH (10:43)
[2023-09-07] MEDS: ALLOPURINOL 100 MG TABLET (FP) PO SCH (10:43)
[2023-09-07 10:58] LABS: BASO % 0.9 % (0-2.0); HEMATOCRIT 26.2 % (35.4-49); HEMOGLOBIN 8.6 GM/dL (11.7-16.9); LYMPH % 14.5 % (8-40); MCH 31.6 pg (25.7-33.7); MCHC 32.7 g/dl (32.0-35.9); MEAN CELL VOLUME 96.7 fl (80-96); MEAN PLT VOLUME 8.8 fl (7.5-11.1); MONO % 10.4 % (3.8-10.2); NEUT % 67.2 % (42.8-82.8); PLATELET COUNT 162 10^3/uL (134-434); RBC 2.71 M/mm3 (4.00-5.60); RDW 14.3 % (11.9-15.9); WHITE BLOOD COUNT 4.8 K/mm3 (4.0-10.0)
[2023-09-07 11:33] LABS: POTASSIUM 4.5 mmol/L (3.5-5.1)
[2023-09-07 11:35] LABS: CALCIUM 8.3 mg/dL (8.5-10.1)
[2023-09-07 11:36] LABS: MAGNESIUM 2.1 mg/dL (1.8-2.4)
[2023-09-07 11:39] LABS: CREATININE 2.2 mg/dL (0.55-1.3); PHOSPHOROUS 3.7 mg/dL (2.5-4.9)
[2023-09-07] MEDS: metoPROLOL SUCCINATE 25 MG TAB.SR.24H (FP) PO SCH ×2 (13:15→21:41)
[2023-09-07] MEDS ORDERED: INSULIN (NOVOLOG) ASPART 100 UNITS/ML 10ML VIAL ONE (20:37)
[2023-09-07] MEDS: ATORVASTATIN CA 10 MG TABLET (FP) PO SCH (21:41)
[2023-09-07] MEDS: DOCUSATE SODIUM 100 MG CAPSULE (FP) PO SCH (21:41)
[2023-09-08] MEDS: PIPERACILLIN/TAZOB 2.25 GM 2.25 GM in DEXTROSE 5%-WATER - 50 ML IVPB SCH ×3 (01:42→23:03)
[2023-09-08] MEDS: INSULIN SLIDING SCALE (NOVOLOG) 1 VIAL SQ SCH ×5 (06:01→21:02)
[2023-09-08] MEDS ORDERED: INSULIN (NOVOLOG) ASPART 100 UNITS/ML 10ML VIAL ONE ×2 (06:08→21:03)
[2023-09-08 08:47] LABS: BASO % 0.7 % (0-2.0); EOS % 3.7 % (0-4.5); HEMATOCRIT 25.4 % (35.4-49); HEMOGLOBIN 8.5 GM/dL (11.7-16.9); LYMPH % 11.5 % (8-40); MCH 32.1 pg (25.7-33.7); MCHC 33.5 g/dl (32.0-35.9); MEAN CELL VOLUME 96.1 fl (80-96); MEAN PLT VOLUME 8.8 fl (7.5-11.1); MONO % 12.7 % (3.8-10.2); NEUT % 71.4 % (42.8-82.8); PLATELET COUNT 159 10^3/uL (134-434); RBC 2.65 M/mm3 (4.00-5.60); RDW 14.5 % (11.9-15.9)
[2023-09-08 08:50] LABS: POTASSIUM 4.5 mmol/L (3.5-5.1)
[2023-09-08 08:53] LABS: ALBUMIN 2.6 g/dl (3.4-5.0); BLOOD UREA NITROGEN 57.7 mg/dL (7-18)
[2023-09-08 08:55] LABS: CALCIUM 7.9 mg/dL (8.5-10.1); MAGNESIUM 1.9 mg/dL (1.8-2.4)
[2023-09-08 08:56] LABS: CREATININE 2.2 mg/dL (0.55-1.3)
[2023-09-08 08:58] LABS: BILIRUBIN,TOTAL 0.7 mg/dL (0.2-1); TOT PROT 5.4 g/dl (6.4-8.2)
[2023-09-08] MEDS: AMINO ACIDS/PROTEIN HYDROLYS 30 ML LIQUID.PKT PO SCH (10:14)
[2023-09-08] MEDS: ALLOPURINOL 100 MG TABLET (FP) PO SCH (10:15)
[2023-09-08] MEDS: metoPROLOL SUCCINATE 25 MG TAB.SR.24H (FP) PO SCH ×2 (10:15→22:08)
[2023-09-08] MEDS: PANTOPRAZOLE 40 MG TABLET PO SCH ×2 (10:15→22:08)
[2023-09-08] MEDS: TAMSULOSIN HCL 0.4 MG CAP PO SCH (10:15)
[2023-09-08] MEDS ORDERED: LIDOCAINE 5% TOPICAL PATCH TP SCH (11:00)
[2023-09-08] MEDS: LIDOCAINE 4% PATCH TP SCH ×2 (12:45→12:47)
[2023-09-08] MEDS: HEPARIN NA (PORCINE) 5,000 UNITS/ML 1ML VIAL SQ SCH ×2 (14:43→22:08)
[2023-09-08] MEDS ORDERED: VANCOMYCIN 1 GM PREMIX - 1 GM/200 ML BAG IVPB SCH (16:00)
[2023-09-08] MEDS ORDERED: VANCOMYCIN/WATER FOR INJ (PEG) 1,000 MG/200 ML BAG IVPB SCH (16:00)
[2023-09-08] MEDS: VANCOMYCIN 500 MG in DEXTROSE 5%-WATER - 100 ML IVPB SCH (17:25)
[2023-09-08] MEDS: DOCUSATE SODIUM 100 MG CAPSULE (FP) PO SCH (22:08)
[2023-09-08] MEDS: ATORVASTATIN CA 10 MG TABLET (FP) PO SCH (22:09)
[2023-09-08] MEDS: LIDOCAINE PATCH REMOVAL MC SCH ×2 (22:09)
[2023-09-09] MEDS: PIPERACILLIN/TAZOB 2.25 GM 2.25 GM in DEXTROSE 5%-WATER - 50 ML IVPB SCH ×2 (05:43→08:32)
[2023-09-09] MEDS ORDERED: INSULIN (NOVOLOG) ASPART 100 UNITS/ML 10ML VIAL ONE (05:52)
[2023-09-09] MEDS: HEPARIN NA (PORCINE) 5,000 UNITS/ML 1ML VIAL SQ SCH ×3 (06:30→22:00)
[2023-09-09] MEDS: INSULIN SLIDING SCALE (NOVOLOG) 1 VIAL SQ SCH ×4 (06:30→21:38)
[2023-09-09 10:08] LABS: BASO % 0.4 % (0-2.0); EOS % 0.7 % (0-4.5); HEMATOCRIT 25.2 % (35.4-49); HEMOGLOBIN 8.1 GM/dL (11.7-16.9); LYMPH % 8.2 % (8-40); MCH 31.9 pg (25.7-33.7); MCHC 32.2 g/dl (32.0-35.9); MEAN CELL VOLUME 98.9 fl (80-96); MEAN PLT VOLUME 9.1 fl (7.5-11.1); MONO % 16.8 % (3.8-10.2); NEUT % 73.9 % (42.8-82.8); PLATELET COUNT 158 10^3/uL (134-434); RBC 2.55 M/mm3 (4.00-5.60); RDW 14.1 % (11.9-15.9); WHITE BLOOD COUNT 6.9 K/mm3 (4.0-10.0)
[2023-09-09 10:39] LABS: POTASSIUM 4.1 mmol/L (3.5-5.1)
[2023-09-09 10:43] LABS: ALBUMIN 2.5 g/dl (3.4-5.0); BLOOD UREA NITROGEN 53.8 mg/dL (7-18)
[2023-09-09 10:46] LABS: CREATININE 2.2 mg/dL (0.55-1.3)
[2023-09-09 10:48] LABS: BILIRUBIN,TOTAL 0.9 mg/dL (0.2-1); TOT PROT 5.4 g/dl (6.4-8.2)
[2023-09-09] MEDS: AMINO ACIDS/PROTEIN HYDROLYS 30 ML LIQUID.PKT PO SCH (11:02)
[2023-09-09] MEDS: LIDOCAINE 4% PATCH TP SCH ×2 (11:02→11:03)
[2023-09-09] MEDS: PANTOPRAZOLE 40 MG TABLET PO SCH ×2 (11:02→22:00)
[2023-09-09] MEDS: metoPROLOL SUCCINATE 25 MG TAB.SR.24H (FP) PO SCH ×2 (11:02→22:01)
[2023-09-09] MEDS: ALLOPURINOL 100 MG TABLET (FP) PO SCH (11:02)
[2023-09-09] MEDS: TAMSULOSIN HCL 0.4 MG CAP PO SCH (11:02)
[2023-09-09] MEDS: VANCOMYCIN 500 MG in DEXTROSE 5%-WATER - 100 ML IVPB SCH (16:58)
[2023-09-09] MEDS ORDERED: QUEtiapine FUMARATE 25 MG TABLET PO ONE (17:30)
[2023-09-09] MEDS: ATORVASTATIN CA 10 MG TABLET (FP) PO SCH (22:00)
[2023-09-09] MEDS ORDERED: QUEtiapine FUMARATE 25 MG TABLET PO SCH (22:00)
[2023-09-09] MEDS: DOCUSATE SODIUM 100 MG CAPSULE (FP) PO SCH (22:01)
[2023-09-09] MEDS: LIDOCAINE PATCH REMOVAL MC SCH ×2 (22:37)
[2023-09-10] MEDS: ACETAMINOPHEN 325 MG TABLET (FP) PO PRN (00:08)
[2023-09-10] MEDS ORDERED: LORazepam 2 MG/ML SDV VIAL IVPUSH ONE (03:32)
[2023-09-10] MEDS: HEPARIN NA (PORCINE) 5,000 UNITS/ML 1ML VIAL SQ SCH ×3 (05:23→22:29)
[2023-09-10] MEDS: INSULIN SLIDING SCALE (NOVOLOG) 1 VIAL SQ SCH ×4 (06:18→22:31)
[2023-09-10 08:32] LABS: BASO % 0.4 % (0-2.0); EOS % 3.2 % (0-4.5); HEMATOCRIT 27.2 % (35.4-49); MCH 31.7 pg (25.7-33.7); MCHC 33.1 g/dl (32.0-35.9); MEAN CELL VOLUME 95.9 fl (80-96); MEAN PLT VOLUME 9.1 fl (7.5-11.1); MONO % 13.6 % (3.8-10.2); NEUT % 71.8 % (42.8-82.8); PLATELET COUNT 168 10^3/uL (134-434); RBC 2.84 M/mm3 (4.00-5.60); RDW 14.8 % (11.9-15.9); WHITE BLOOD COUNT 7.1 K/mm3 (4.0-10.0)
[2023-09-10 08:48] LABS: POTASSIUM 4.1 mmol/L (3.5-5.1)
[2023-09-10 08:53] LABS: ALBUMIN 2.4 g/dl (3.4-5.0)
[2023-09-10 08:55] LABS: CALCIUM 8.3 mg/dL (8.5-10.1)
[2023-09-10 08:56] LABS: BLOOD UREA NITROGEN 52.8 mg/dL (7-18); MAGNESIUM 1.9 mg/dL (1.8-2.4)
[2023-09-10 08:59] LABS: CREATININE 2.4 mg/dL (0.55-1.3)
[2023-09-10 09:00] LABS: BILIRUBIN,TOTAL 0.7 mg/dL (0.2-1); TOT PROT 5.5 g/dl (6.4-8.2)
[2023-09-10] MEDS: AMINO ACIDS/PROTEIN HYDROLYS 30 ML LIQUID.PKT PO SCH (10:35)
[2023-09-10] MEDS: QUEtiapine FUMARATE 25 MG TABLET PO SCH ×2 (10:36→22:30)
[2023-09-10] MEDS: LIDOCAINE 4% PATCH TP SCH ×2 (10:36)
[2023-09-10] MEDS: TAMSULOSIN HCL 0.4 MG CAP PO SCH (10:37)
[2023-09-10] MEDS: ALLOPURINOL 100 MG TABLET (FP) PO SCH (10:37)
[2023-09-10] MEDS: PANTOPRAZOLE 40 MG TABLET PO SCH ×2 (10:37→22:30)
[2023-09-10] MEDS: metoPROLOL SUCCINATE 25 MG TAB.SR.24H (FP) PO SCH ×2 (11:21→22:31)
[2023-09-10] MEDS: MINERAL OIL/PET HY-PHL TOPICAL OINTMENT 454 GM JAR TP SCH ×2 (15:10→22:31)
[2023-09-10] MEDS: CLINDAMYCIN HCL 150 MG CAPSULE (FP) PO SCH ×2 (15:10→22:29)
[2023-09-10] MEDS: DOCUSATE SODIUM 100 MG CAPSULE (FP) PO SCH (22:30)
[2023-09-10] MEDS: ATORVASTATIN CA 10 MG TABLET (FP) PO SCH (22:30)
[2023-09-10] MEDS: LIDOCAINE PATCH REMOVAL MC SCH ×2 (22:45)
[2023-09-11] MEDS: ACETAMINOPHEN 325 MG TABLET (FP) PO PRN ×2 (01:49→10:27)
[2023-09-11] MEDS: CLINDAMYCIN HCL 150 MG CAPSULE (FP) PO SCH ×3 (05:47→21:48)
[2023-09-11] MEDS: HEPARIN NA (PORCINE) 5,000 UNITS/ML 1ML VIAL SQ SCH ×3 (05:48→21:47)
[2023-09-11] MEDS: INSULIN SLIDING SCALE (NOVOLOG) 1 VIAL SQ SCH ×4 (06:41→21:58)
[2023-09-11 08:17] LABS: BASO % 0.3 % (0-2.0); EOS % 1.5 % (0-4.5); HEMATOCRIT 23.6 % (35.4-49); HEMOGLOBIN 7.7 GM/dL (11.7-16.9); LYMPH % 8.4 % (8-40); MCH 31.8 pg (25.7-33.7); MCHC 32.8 g/dl (32.0-35.9); MEAN CELL VOLUME 96.8 fl (80-96); MEAN PLT VOLUME 8.7 fl (7.5-11.1); MONO % 11.6 % (3.8-10.2); NEUT % 78.2 % (42.8-82.8); PLATELET COUNT 169 10^3/uL (134-434); RBC 2.44 M/mm3 (4.00-5.60); RDW 13.8 % (11.9-15.9); WHITE BLOOD COUNT 6.5 K/mm3 (4.0-10.0)
[2023-09-11] MEDS: AMINO ACIDS/PROTEIN HYDROLYS 30 ML LIQUID.PKT PO SCH (08:34)
[2023-09-11] MEDS: TAMSULOSIN HCL 0.4 MG CAP PO SCH (08:35)
[2023-09-11 08:45] LABS: ALBUMIN 2.1 g/dl (3.4-5.0)
[2023-09-11 08:48] LABS: CALCIUM 8.4 mg/dL (8.5-10.1)
[2023-09-11 08:49] LABS: BLOOD UREA NITROGEN 53.5 mg/dL (7-18); MAGNESIUM 2.1 mg/dL (1.8-2.4)
[2023-09-11 08:51] LABS: CREATININE 2.4 mg/dL (0.55-1.3)
[2023-09-11 08:53] LABS: BILIRUBIN,TOTAL 0.5 mg/dL (0.2-1); TOT PROT 5.1 g/dl (6.4-8.2)
[2023-09-11] MEDS: LIDOCAINE 4% PATCH TP SCH ×2 (10:20)
[2023-09-11] MEDS: metoPROLOL SUCCINATE 25 MG TAB.SR.24H (FP) PO SCH ×2 (10:21→21:48)
[2023-09-11] MEDS: ALLOPURINOL 100 MG TABLET (FP) PO SCH (10:21)
[2023-09-11] MEDS: PANTOPRAZOLE 40 MG TABLET PO SCH ×2 (10:21→21:48)
[2023-09-11] MEDS: QUEtiapine FUMARATE 25 MG TABLET PO SCH ×2 (10:21→21:48)
[2023-09-11] MEDS: MINERAL OIL/PET HY-PHL TOPICAL OINTMENT 454 GM JAR TP SCH ×2 (10:55→21:49)
[2023-09-11] MEDS: DOCUSATE SODIUM 100 MG CAPSULE (FP) PO SCH (21:48)
[2023-09-11] MEDS: ATORVASTATIN CA 10 MG TABLET (FP) PO SCH (21:48)
[2023-09-11] MEDS: LIDOCAINE PATCH REMOVAL MC SCH ×2 (21:58)
[2023-09-11] MEDS ORDERED: ACETAMINOPHEN 325 MG TABLET (FP) PO PRN (22:37)
[2023-09-12] MEDS: CLINDAMYCIN HCL 150 MG CAPSULE (FP) PO SCH ×3 (05:55→22:04)
[2023-09-12] MEDS: HEPARIN NA (PORCINE) 5,000 UNITS/ML 1ML VIAL SQ SCH ×3 (05:55→22:05)
[2023-09-12] MEDS: INSULIN SLIDING SCALE (NOVOLOG) 1 VIAL SQ SCH ×4 (06:18→22:25)
[2023-09-12 09:48] LABS: BASO % 0.6 % (0-2.0); EOS % 2.7 % (0-4.5); HEMOGLOBIN 8.4 GM/dL (11.7-16.9); LYMPH % 9.6 % (8-40); MCH 31.5 pg (25.7-33.7); MCHC 32.5 g/dl (32.0-35.9); MEAN CELL VOLUME 96.7 fl (80-96); MEAN PLT VOLUME 9.1 fl (7.5-11.1); MONO % 11.9 % (3.8-10.2); NEUT % 75.2 % (42.8-82.8); PLATELET COUNT 174 10^3/uL (134-434); RBC 2.69 M/mm3 (4.00-5.60); WHITE BLOOD COUNT 6.7 K/mm3 (4.0-10.0)
[2023-09-12] MEDS: PANTOPRAZOLE 40 MG TABLET PO SCH ×2 (09:55→22:05)
[2023-09-12] MEDS: metoPROLOL SUCCINATE 25 MG TAB.SR.24H (FP) PO SCH ×2 (09:55→22:05)
[2023-09-12] MEDS: ALLOPURINOL 100 MG TABLET (FP) PO SCH (09:55)
[2023-09-12] MEDS: QUEtiapine FUMARATE 25 MG TABLET PO SCH ×2 (09:55→22:04)
[2023-09-12] MEDS: TAMSULOSIN HCL 0.4 MG CAP PO SCH (09:55)
[2023-09-12] MEDS: MINERAL OIL/PET HY-PHL TOPICAL OINTMENT 454 GM JAR TP SCH ×2 (09:56→22:20)
[2023-09-12] MEDS: AMINO ACIDS/PROTEIN HYDROLYS 30 ML LIQUID.PKT PO SCH (09:56)
[2023-09-12] MEDS: LIDOCAINE 4% PATCH TP SCH ×2 (09:56)
[2023-09-12 10:12] LABS: POTASSIUM 4.5 mmol/L (3.5-5.1)
[2023-09-12 10:13] LABS: CALCIUM 7.9 mg/dL (8.5-10.1)
[2023-09-12 10:14] LABS: ALBUMIN 2.1 g/dl (3.4-5.0); BLOOD UREA NITROGEN 64.6 mg/dL (7-18); MAGNESIUM 2.1 mg/dL (1.8-2.4)
[2023-09-12 10:17] LABS: CREATININE 2.8 mg/dL (0.55-1.3)
[2023-09-12 10:19] LABS: BILIRUBIN,TOTAL 0.5 mg/dL (0.2-1); TOT PROT 5.3 g/dl (6.4-8.2)
[2023-09-12] MEDS ORDERED: ACETAMINOPHEN 325 MG TABLET (FP) PO PRN (15:13)
[2023-09-12] MEDS ORDERED: INSULIN (NOVOLOG) ASPART 100 UNITS/ML 10ML VIAL ONE (17:41)
[2023-09-12] MEDS: ATORVASTATIN CA 10 MG TABLET (FP) PO SCH (22:04)
[2023-09-12] MEDS: DOCUSATE SODIUM 100 MG CAPSULE (FP) PO SCH (22:04)
[2023-09-12] MEDS: LIDOCAINE PATCH REMOVAL MC SCH ×2 (22:05)
[2023-09-13] MEDS ORDERED: HALOPERIDOL LACTATE 5 MG/ML IM ONE (00:01)
[2023-09-13] MEDS ORDERED: LORazepam 0.5 MG TABLET PO ONE (01:12)
[2023-09-13] MEDS: CLINDAMYCIN HCL 150 MG CAPSULE (FP) PO SCH ×3 (05:47→21:26)
[2023-09-13] MEDS: HEPARIN NA (PORCINE) 5,000 UNITS/ML 1ML VIAL SQ SCH ×3 (05:48→21:27)
[2023-09-13] MEDS: INSULIN SLIDING SCALE (NOVOLOG) 1 VIAL SQ SCH ×4 (06:13→21:37)
[2023-09-13 08:05] LABS: BASO % 0.7 % (0-2.0); EOS % 5.7 % (0-4.5); HEMATOCRIT 23.4 % (35.4-49); HEMOGLOBIN 7.7 GM/dL (11.7-16.9); LYMPH % 11.1 % (8-40); MCH 31.6 pg (25.7-33.7); MEAN CELL VOLUME 95.7 fl (80-96); MEAN PLT VOLUME 8.8 fl (7.5-11.1); MONO % 11.7 % (3.8-10.2); NEUT % 70.8 % (42.8-82.8); PLATELET COUNT 171 10^3/uL (134-434); RBC 2.44 M/mm3 (4.00-5.60); RDW 14.5 % (11.9-15.9); WHITE BLOOD COUNT 5.7 K/mm3 (4.0-10.0)
[2023-09-13 08:25] LABS: POTASSIUM 4.5 mmol/L (3.5-5.1)
[2023-09-13 08:32] LABS: BLOOD UREA NITROGEN 68.8 mg/dL (7-18); CALCIUM 8.1 mg/dL (8.5-10.1); MAGNESIUM 2.2 mg/dL (1.8-2.4)
[2023-09-13 08:35] LABS: CREATININE 2.7 mg/dL (0.55-1.3)
[2023-09-13 08:37] LABS: BILIRUBIN,TOTAL 0.7 mg/dL (0.2-1)
[2023-09-13] MEDS: LIDOCAINE 4% PATCH TP SCH ×2 (10:24)
[2023-09-13] MEDS: ALLOPURINOL 100 MG TABLET (FP) PO SCH (10:25)
[2023-09-13] MEDS: TAMSULOSIN HCL 0.4 MG CAP PO SCH (10:25)
[2023-09-13] MEDS: QUEtiapine FUMARATE 25 MG TABLET PO SCH ×2 (10:25→21:27)
[2023-09-13] MEDS: AMINO ACIDS/PROTEIN HYDROLYS 30 ML LIQUID.PKT PO SCH (10:25)
[2023-09-13] MEDS: MINERAL OIL/PET HY-PHL TOPICAL OINTMENT 454 GM JAR TP SCH ×2 (10:25→21:34)
[2023-09-13] MEDS: metoPROLOL SUCCINATE 25 MG TAB.SR.24H (FP) PO SCH ×2 (10:25→21:34)
[2023-09-13] MEDS: PANTOPRAZOLE 40 MG TABLET PO SCH ×2 (10:25→21:27)
[2023-09-13] MEDS: ACETAMINOPHEN 325 MG TABLET (FP) PO SCH ×2 (17:29→23:17)
[2023-09-13] MEDS: ATORVASTATIN CA 10 MG TABLET (FP) PO SCH (21:26)
[2023-09-13] MEDS: DOCUSATE SODIUM 100 MG CAPSULE (FP) PO SCH (21:27)
[2023-09-13] MEDS: LIDOCAINE PATCH REMOVAL MC SCH ×2 (21:34)
[2023-09-14 00:04] VITALS: RESP 18
[2023-09-14] MEDS: ACETAMINOPHEN 325 MG TABLET (FP) PO SCH ×3 (05:23→17:45)
[2023-09-14] MEDS: HEPARIN NA (PORCINE) 5,000 UNITS/ML 1ML VIAL SQ SCH ×2 (05:23→14:02)
[2023-09-14] MEDS: CLINDAMYCIN HCL 150 MG CAPSULE (FP) PO SCH ×2 (05:24→14:02)
[2023-09-14] MEDS: INSULIN SLIDING SCALE (NOVOLOG) 1 VIAL SQ SCH ×3 (06:00→17:46)
[2023-09-14 07:35] VITALS: TEMP 98.6
[2023-09-14] MEDS: AMINO ACIDS/PROTEIN HYDROLYS 30 ML LIQUID.PKT PO SCH (10:02)
[2023-09-14] MEDS: metoPROLOL SUCCINATE 25 MG TAB.SR.24H (FP) PO SCH (10:02)
[2023-09-14] MEDS: PANTOPRAZOLE 40 MG TABLET PO SCH (10:02)
[2023-09-14] MEDS: LIDOCAINE 4% PATCH TP SCH ×2 (10:02)
[2023-09-14] MEDS: QUEtiapine FUMARATE 25 MG TABLET PO SCH (10:02)
[2023-09-14] MEDS: TAMSULOSIN HCL 0.4 MG CAP PO SCH (10:02)
[2023-09-14] MEDS: ALLOPURINOL 100 MG TABLET (FP) PO SCH (10:02)
[2023-09-14] MEDS: MINERAL OIL/PET HY-PHL TOPICAL OINTMENT 454 GM JAR TP SCH (11:02)
[2023-09-14 14:43] VITALS: BP 127/56; PULSE 75
== END 2023-09-14 20:59 | DRG 602 ==
LOC: JER 14:18 → JERBED 16:32 → J8W 18:45
PROVIDERS: ADMIT Internal Medicine; ATTEND Nurse Practitioner Family
DX: L03.115 Cellulitis of right lower limb (principal); E43 Unspecified severe protein-calorie malnutrition; G93.41 Metabolic encephalopathy; I25.10 Atherosclerotic heart disease of native coronary artery without angina pectoris; E78.5 Hyperlipidemia, unspecified; N40.0 Benign prostatic hyperplasia without lower urinary tract symptoms; F03.90 Unspecified dementia, unspecified severity, without behavioral disturbance, psychotic disturbance, mood disturbance, and anxiety; I12.9 Hypertensive chronic kidney disease with stage 1 through stage 4 chronic kidney disease, or unspecified chronic kidney disease; E11.22 Type 2 diabetes mellitus with diabetic chronic kidney disease; D63.1 Anemia in chronic kidney disease; N18.9 Chronic kidney disease, unspecified; K59.00 Constipation, unspecified; I87.2 Venous insufficiency (chronic) (peripheral); E87.5 Hyperkalemia; S81.801A Unspecified open wound, right lower leg, initial encounter; Z87.442 Personal history of urinary calculi; Z95.5 Presence of coronary angioplasty implant and graft; Z68.20 Body mass index [BMI] 20.0-20.9, adult; I25.2 Old myocardial infarction; X58.XXXA Exposure to other specified factors, initial encounter; Y93.9 Activity, unspecified; Y92.9 Unspecified place or not applicable; Y99.9 Unspecified external cause status
CPT/HCPCS: 36415; 73590-TC-RT-FY; 73630-TC-RT-FY; 80048; 80053; 82962; 83735; 84100; 85025; 85610; 85651; 85730; 86140; 87040; 87070; 87186; 87205; 87635; 93005; 93010; 97116-GP; 97161-GP; 99285-25; J1644

== ENCOUNTER 2023-09-22 12:58 | Observation (INO) | payer BC ==
[2023-09-22 13:16] VITALS: BMI 30.2
[2023-09-22] MEDS ORDERED: CALCIUM GLUCONATE 10% - 1,000 MG/10 ML VIAL IVPB ONE (13:48)
[2023-09-22] MEDS ORDERED: SODIUM CHLORIDE 0.9% 500 ML INFUS.BAG IV ONE (13:48)
[2023-09-22 14:00] LABS: BASO % 1.4 % (0-2.0); EOS % 6.8 % (0-4.5); HEMATOCRIT 25.8 % (35.4-49); LYMPH % 16.5 % (8-40); MCH 30.4 pg (25.7-33.7); MCHC 30.9 g/dl (32.0-35.9); MEAN CELL VOLUME 98.5 fl (80-96); MEAN PLT VOLUME 7.5 fl (7.5-11.1); MONO % 10.5 % (3.8-10.2); NEUT % 64.8 % (42.8-82.8); PLATELET COUNT 358 10^3/uL (134-434); RBC 2.62 M/mm3 (4.00-5.60); RDW 14.9 % (11.9-15.9); WHITE BLOOD COUNT 5.7 K/mm3 (4.0-10.0)
[2023-09-22] MEDS ORDERED: SODIUM ZIRCONIUM CYCLOSILICATE (LOKELMA) 5 GM PACKET PO ONE (14:04)
[2023-09-22] MEDS ORDERED: DEXTROSE 50%-WATER - 25 GM/50 ML VIAL IVPUSH ONE ×2 (14:05→15:52)
[2023-09-22] MEDS ORDERED: INSULIN REGULAR HUMAN 100 UNITS/ML *VIAL IVPUSH ONE (14:05)
[2023-09-22] MEDS ORDERED: CALCIUM GLUCONATE 10% - 1,000 MG/10 ML VIAL ONE (14:08)
[2023-09-22 14:20] LABS: POTASSIUM 5.9 mmol/L (3.5-5.1)
[2023-09-22 14:23] LABS: BLOOD UREA NITROGEN 61.1 mg/dL (7-18); CALCIUM 8.6 mg/dL (8.5-10.1); MAGNESIUM 2.1 mg/dL (1.8-2.4)
[2023-09-22 14:26] LABS: PHOSPHOROUS 3.6 mg/dL (2.5-4.9)
[2023-09-22] MEDS ORDERED: DEXTROSE 50%-WATER 25 GM/50 ML DISP.SYRIN ONE ×2 (14:26→15:50)
[2023-09-22] MEDS ORDERED: SODIUM ZIRCONIUM CYCLOSILICATE (LOKELMA) 10 GM PACKET ONE (14:26)
[2023-09-22 14:27] LABS: BILIRUBIN,TOTAL 0.3 mg/dL (0.2-1); TOT PROT 5.7 g/dl (6.4-8.2)
[2023-09-22 14:31] LABS: ALBUMIN 2.5 g/dl (3.4-5.0)
[2023-09-22] MEDS ORDERED: ACETAMINOPHEN 325 MG TABLET (FP) PO PRN (17:54)
[2023-09-22] MEDS ORDERED: ACETAMINOPHEN 650 MG PO PRN (17:54)
[2023-09-22] MEDS ORDERED: SENNOSIDES 8.6MG TABLET (FP) PO ONE (21:49)
[2023-09-22] MEDS ORDERED: PANTOPRAZOLE 40 MG TABLET PO ONE (21:49)
[2023-09-22] MEDS ORDERED: QUEtiapine FUMARATE 25 MG TABLET ONE (21:50)
[2023-09-22] MEDS ORDERED: HEPARIN NA (PORCINE) 5,000 UNITS/ML 1ML VIAL ONE (21:50)
[2023-09-22] MEDS ORDERED: FERROUS SO4 325 MG TABLET (FP) ONE (21:50)
[2023-09-22] MEDS ORDERED: metoPROLOL SUCCINATE 25 MG TAB.SR.24H (FP) PO ONE (21:50)
[2023-09-22] MEDS ORDERED: DOCUSATE SODIUM 100 MG CAPSULE (FP) PO ONE (21:51)
[2023-09-22] MEDS ORDERED: DOCUSATE SODIUM 100 MG CAPSULE (FP) PO SCH (22:00)
[2023-09-22] MEDS ORDERED: PATIENT'S OWN MEDICATION (NON-FORMULARY) (Lidocaine Patch Removal 1 EACH Each) MC SCH (22:00)
[2023-09-22] MEDS ORDERED: ATORVASTATIN CA 10 MG TABLET (FP) PO SCH (22:00)
[2023-09-22] MEDS ORDERED: QUEtiapine FUMARATE 25 MG TABLET PO SCH (22:00)
[2023-09-22] MEDS: HEPARIN NA (PORCINE) 5,000 UNITS/ML 1ML VIAL SQ SCH (22:06)
[2023-09-22] MEDS: FERROUS SO4 325 MG TABLET (FP) PO SCH (22:06)
[2023-09-22] MEDS: metoPROLOL SUCCINATE 25 MG TAB.SR.24H (FP) PO SCH (22:06)
[2023-09-22] MEDS: SENNOSIDES 8.6MG TABLET (FP) PO SCH (22:06)
[2023-09-22] MEDS: PANTOPRAZOLE 40 MG TABLET PO SCH (22:06)
[2023-09-23] MEDS ORDERED: HEPARIN NA (PORCINE) 5,000 UNITS/ML 1ML VIAL ONE (05:59)
[2023-09-23] MEDS: HEPARIN NA (PORCINE) 5,000 UNITS/ML 1ML VIAL SQ SCH ×2 (06:07→16:15)
[2023-09-23] MEDS ORDERED: AMINO ACIDS/PROTEIN HYDROLYS 30 ML LIQUID.PKT PO SCH (08:00)
[2023-09-23 08:21] LABS: BASO % 1.3 % (0-2.0); EOS % 6.4 % (0-4.5); HEMATOCRIT 25.1 % (35.4-49); HEMOGLOBIN 8.3 GM/dL (11.7-16.9); LYMPH % 18.9 % (8-40); MCH 32.4 pg (25.7-33.7); MCHC 32.9 g/dl (32.0-35.9); MEAN CELL VOLUME 98.3 fl (80-96); MEAN PLT VOLUME 7.8 fl (7.5-11.1); MONO % 10.5 % (3.8-10.2); NEUT % 62.9 % (42.8-82.8); PLATELET COUNT 371 10^3/uL (134-434); RBC 2.55 M/mm3 (4.00-5.60); WHITE BLOOD COUNT 5.7 K/mm3 (4.0-10.0)
[2023-09-23] MEDS ORDERED: TAMSULOSIN HCL 0.4 MG CAP PO SCH (08:30)
[2023-09-23 09:04] LABS: POTASSIUM 5.8 mmol/L (3.5-5.1)
[2023-09-23 09:11] LABS: CALCIUM 8.5 mg/dL (8.5-10.1)
[2023-09-23 09:12] LABS: ALBUMIN 2.4 g/dl (3.4-5.0); BLOOD UREA NITROGEN 62.9 mg/dL (7-18)
[2023-09-23 09:15] LABS: BILIRUBIN,TOTAL 0.4 mg/dL (0.2-1); CREATININE 2.3 mg/dL (0.55-1.3); TOT PROT 5.6 g/dl (6.4-8.2)
[2023-09-23] MEDS: FERROUS SO4 325 MG TABLET (FP) PO SCH (09:19)
[2023-09-23] MEDS: PANTOPRAZOLE 40 MG TABLET PO SCH (09:19)
[2023-09-23] MEDS: metoPROLOL SUCCINATE 25 MG TAB.SR.24H (FP) PO SCH (09:19)
[2023-09-23] MEDS: SENNOSIDES 8.6MG TABLET (FP) PO SCH (09:20)
[2023-09-23] MEDS ORDERED: SODIUM ZIRCONIUM CYCLOSILICATE (LOKELMA) 5 GM PACKET ONE ×2 (09:21→09:26)
[2023-09-23] MEDS ORDERED: ALLOPURINOL 100 MG TABLET (FP) PO SCH (10:00)
[2023-09-23] MEDS ORDERED: QUEtiapine FUMARATE 25 MG TABLET PO SCH (10:00)
[2023-09-23] MEDS ORDERED: ASPIRIN 81 MG CHEWABLE TABLETS PO SCH (10:00)
[2023-09-23] MEDS ORDERED: SODIUM ZIRCONIUM CYCLOSILICATE (LOKELMA) 5 GM PACKET PO SCH ×2 (10:00→22:00)
[2023-09-23] MEDS ORDERED: IRON SUCROSE INJECTION 200 MG in SODIUM CHLORIDE 90 ML IVPB ONE (10:09)
[2023-09-23] MEDS ORDERED: SODIUM CHLORIDE 0.45% 1,000 ML IV SCH (16:15)
[2023-09-23 20:26] VITALS: TEMP 97.8
[2023-09-23 22:09] VITALS: BP 142/66; PULSE 65; RESP 18
== END 2023-09-23 22:11 | disposition home or self-care (01) ==
LOC: JER 12:58 → JERBED 13:56
PROVIDERS: ADMIT Internal Medicine; ATTEND Internal Medicine
PROC: 3E033GC Introduction of Other Therapeutic Substance into Peripheral Vein, Percutaneous Approach (ICD-10-PCS; principal; 2023-09-22)
PROC: 3E0337Z Introduction of Electrolytic and Water Balance Substance into Peripheral Vein, Percutaneous Approach (ICD-10-PCS; 2023-09-22)
PROC: 3E013VG Introduction of Insulin into Subcutaneous Tissue, Percutaneous Approach (ICD-10-PCS; 2023-09-22)
DX: N28.9 Disorder of kidney and ureter, unspecified (principal); E87.5 Hyperkalemia; E11.22 Type 2 diabetes mellitus with diabetic chronic kidney disease; I25.10 Atherosclerotic heart disease of native coronary artery without angina pectoris; I13.10 Hypertensive heart and chronic kidney disease without heart failure, with stage 1 through stage 4 chronic kidney disease, or unspecified chronic kidney disease; E78.5 Hyperlipidemia, unspecified; I11.0 Hypertensive heart disease with heart failure; F03.90 Unspecified dementia, unspecified severity, without behavioral disturbance, psychotic disturbance, mood disturbance, and anxiety; N21.0 Calculus in bladder; Z87.891 Personal history of nicotine dependence; I25.2 Old myocardial infarction; Z95.5 Presence of coronary angioplasty implant and graft; N40.0 Benign prostatic hyperplasia without lower urinary tract symptoms; D64.9 Anemia, unspecified
CPT/HCPCS: 36415; 80048; 80053; 82728; 82962; 83540; 83550; 83735; 84100; 84443; 85025; 93005; 93010; 96361; 96365; 96375; 99285-25; G0378; J1644; J1756

== ENCOUNTER 2023-11-30 09:03 | Inpatient (IN) | payer BC ==
[2023-11-30] MEDS ORDERED: ACETAMINOPHEN 1000 MG/100 ML BAG IVPB ONE (10:40)
[2023-11-30] MEDS ORDERED: LABETALOL HCL 5 MG/1 ML (100MG/20 ML VIAL) IVPUSH ONE (10:40)
[2023-11-30] MEDS ORDERED: ACETAMINOPHEN INJECTION 100 ML IVPB ONE (11:28)
[2023-11-30 11:30] LABS: BASO % 1.1 % (0-2.0); EOS % 3.4 % (0-4.5); HEMATOCRIT 29.4 % (35.4-49); HEMOGLOBIN 9.3 GM/dL (11.7-16.9); LYMPH % 11.4 % (8-40); MCHC 31.8 g/dl (32.0-35.9); MEAN CELL VOLUME 94.4 fl (80-96); MEAN PLT VOLUME 8.4 fl (7.5-11.1); MONO % 8.8 % (3.8-10.2); NEUT % 75.3 % (42.8-82.8); PLATELET COUNT 149 10^3/uL (134-434); RBC 3.11 M/mm3 (4.00-5.60); WHITE BLOOD COUNT 7.2 K/mm3 (4.0-10.0)
[2023-11-30 11:40] LABS: INR 1.04 (0.83-1.09); PROTHROMBIN TIME (PATIENT) 12.1 SEC (9.7-13.0)
[2023-11-30 11:46] LABS: POTASSIUM 4.6 mmol/L (3.5-5.1)
[2023-11-30] MEDS ORDERED: LABETALOL HCL 20 MG/4 ML VIAL ONE (12:02)
[2023-11-30] MEDS ORDERED: DIPHTH,PERTUSS(ACELL),TET 0.5 ML DISP.SYRIN IM ONE ×2 (13:04→17:22)
[2023-11-30 13:53] LABS: ALBUMIN 2.9 g/dl (3.4-5.0); BLOOD UREA NITROGEN 45.6 mg/dL (7-18)
[2023-11-30 13:56] LABS: CREATININE 1.5 mg/dL (0.55-1.3)
[2023-11-30 13:57] LABS: BILIRUBIN,TOTAL 0.4 mg/dL (0.2-1); TOT PROT 6.5 g/dl (6.4-8.2)
[2023-12-01 06:39] LABS: BASO % 0.9 % (0-2.0); EOS % 4.8 % (0-4.5); HEMATOCRIT 29.9 % (35.4-49); HEMOGLOBIN 9.4 GM/dL (11.7-16.9); LYMPH % 14.3 % (8-40); MCH 29.9 pg (25.7-33.7); MCHC 31.5 g/dl (32.0-35.9); MEAN CELL VOLUME 94.9 fl (80-96); MEAN PLT VOLUME 8.6 fl (7.5-11.1); MONO % 9.5 % (3.8-10.2); NEUT % 70.5 % (42.8-82.8); PLATELET COUNT 150 10^3/uL (134-434); RBC 3.15 M/mm3 (4.00-5.60); RDW 18.3 % (11.9-15.9)
[2023-12-01] MEDS ORDERED: LABETALOL HCL 5 MG/1 ML (100MG/20 ML VIAL) ONE (07:11)
[2023-12-01 07:14] LABS: POTASSIUM 4.8 mmol/L (3.5-5.1)
[2023-12-01 07:17] LABS: ALBUMIN 2.8 g/dl (3.4-5.0); BLOOD UREA NITROGEN 43.2 mg/dL (7-18); CALCIUM 8.5 mg/dL (8.5-10.1); MAGNESIUM 2.3 mg/dL (1.8-2.4)
[2023-12-01 07:20] LABS: CREATININE 1.7 mg/dL (0.55-1.3); PHOSPHOROUS 3.6 mg/dL (2.5-4.9)
[2023-12-01 07:21] LABS: TOT PROT 6.4 g/dl (6.4-8.2)
[2023-12-01] MEDS: LABETALOL HCL 5 MG/1 ML (100MG/20 ML VIAL) IVPUSH PRN ×2 (07:24→11:45)
[2023-12-01 07:30] LABS: BILIRUBIN,TOTAL 0.4 mg/dL (0.2-1)
[2023-12-01] MEDS: INSULIN ASPART SLIDING SCALE (NOVOLOG) 1 VIAL SQ SCH ×4 (08:48→21:59)
[2023-12-01] MEDS ORDERED: ENALAPRILAT DIHYDRATE 1.25 MG/1 ML VIAL IVPB PRN (14:43)
[2023-12-01] MEDS: ATORVASTATIN CA 10 MG TABLET (FP) PO SCH (21:59)
[2023-12-01] MEDS ORDERED: HALOPERIDOL LACTATE 5 MG/ML IM ONE (23:03)
[2023-12-02] MEDS ORDERED: ACETAMINOPHEN 1000 MG/100 ML BAG IVPB ONE (04:17)
[2023-12-02] MEDS: MELATONIN 5 MG TABLETS PO PRN ×2 (04:36→21:09)
[2023-12-02] MEDS: INSULIN ASPART SLIDING SCALE (NOVOLOG) 1 VIAL SQ SCH ×4 (06:59→21:27)
[2023-12-02] MEDS: ENALAPRIL MALEATE 2.5 MG TABLET PO SCH (09:22)
[2023-12-02] MEDS: ATORVASTATIN CA 10 MG TABLET (FP) PO SCH (21:09)
[2023-12-03] MEDS: INSULIN ASPART SLIDING SCALE (NOVOLOG) 1 VIAL SQ SCH ×4 (06:20→21:45)
[2023-12-03] MEDS: ENALAPRIL MALEATE 2.5 MG TABLET PO SCH (09:24)
[2023-12-03] MEDS ORDERED: REMDESIVIR 200 MG in SODIUM CHLORIDE 250 ML IVPB ONE (12:00)
[2023-12-03] MEDS: ATORVASTATIN CA 10 MG TABLET (FP) PO SCH (21:11)
[2023-12-03] MEDS: MELATONIN 5 MG TABLETS PO PRN (21:12)
[2023-12-03] MEDS: QUEtiapine FUMARATE 25 MG TABLET PO SCH (21:12)
[2023-12-03] MEDS ORDERED: HALOPERIDOL LACTATE 5 MG/ML IM ONE (23:31)
[2023-12-04] MEDS: INSULIN ASPART SLIDING SCALE (NOVOLOG) 1 VIAL SQ SCH ×4 (09:13→21:29)
[2023-12-04] MEDS: TAMSULOSIN HCL 0.4 MG CAP PO SCH (09:14)
[2023-12-04] MEDS: ENALAPRIL MALEATE 2.5 MG TABLET PO SCH (09:14)
[2023-12-04] MEDS: QUEtiapine FUMARATE 25 MG TABLET PO SCH ×2 (09:14→21:31)
[2023-12-04] MEDS: metoPROLOL SUCCINATE 25 MG TAB.SR.24H (FP) PO SCH ×2 (10:00→21:31)
[2023-12-04] MEDS ORDERED: REMDESIVIR 100 MG in SODIUM CHLORIDE 230 ML IVPB ONE (13:00)
[2023-12-04] MEDS: ATORVASTATIN CA 10 MG TABLET (FP) PO SCH (21:31)
[2023-12-05] MEDS: ENALAPRIL MALEATE 2.5 MG TABLET PO SCH (11:13)
[2023-12-05] MEDS: TAMSULOSIN HCL 0.4 MG CAP PO SCH (11:13)
[2023-12-05] MEDS: metoPROLOL SUCCINATE 25 MG TAB.SR.24H (FP) PO SCH ×2 (11:14→21:54)
[2023-12-05] MEDS: QUEtiapine FUMARATE 25 MG TABLET PO SCH ×2 (11:14→21:54)
[2023-12-05] MEDS: MELATONIN 5 MG TABLETS PO PRN (21:54)
[2023-12-05] MEDS: ATORVASTATIN CA 10 MG TABLET (FP) PO SCH (21:55)
[2023-12-05] MEDS: INSULIN ASPART SLIDING SCALE (NOVOLOG) 1 VIAL SQ SCH (22:07)
[2023-12-06] MEDS: TAMSULOSIN HCL 0.4 MG CAP PO SCH (09:56)
[2023-12-06] MEDS: ENALAPRIL MALEATE 2.5 MG TABLET PO SCH (09:56)
[2023-12-06] MEDS: metoPROLOL SUCCINATE 25 MG TAB.SR.24H (FP) PO SCH ×2 (09:56→23:40)
[2023-12-06] MEDS: QUEtiapine FUMARATE 25 MG TABLET PO SCH ×2 (09:56→23:40)
[2023-12-06] MEDS: INSULIN ASPART SLIDING SCALE (NOVOLOG) 1 VIAL SQ SCH ×4 (11:00→23:05)
[2023-12-06] MEDS: ATORVASTATIN CA 10 MG TABLET (FP) PO SCH (23:40)
[2023-12-07] MEDS: INSULIN ASPART SLIDING SCALE (NOVOLOG) 1 VIAL SQ SCH ×2 (07:30→12:10)
[2023-12-07] MEDS: TAMSULOSIN HCL 0.4 MG CAP PO SCH (08:57)
[2023-12-07] MEDS: metoPROLOL SUCCINATE 25 MG TAB.SR.24H (FP) PO SCH (10:00)
[2023-12-07] MEDS: QUEtiapine FUMARATE 25 MG TABLET PO SCH (10:00)
[2023-12-07] MEDS: ENALAPRIL MALEATE 2.5 MG TABLET PO SCH (10:00)
[2023-12-07 12:15] VITALS: RESP 20
[2023-12-07 16:52] VITALS: BMI 24.2
[2023-12-07 17:47] VITALS: BP 133/61; PULSE 60; TEMP 98
== END 2023-12-07 17:45 | DRG 85 ==
LOC: JER 09:03 → JERBED 13:44 → J2W 12-01 09:55
PROVIDERS: ADMIT Internal Medicine; ATTEND Internal Medicine
DX: S06.6X0A Traumatic subarachnoid hemorrhage without loss of consciousness, initial encounter (principal); U07.1 COVID-19; I13.0 Hypertensive heart and chronic kidney disease with heart failure and stage 1 through stage 4 chronic kidney disease, or unspecified chronic kidney disease; N17.9 Acute kidney failure, unspecified; I25.10 Atherosclerotic heart disease of native coronary artery without angina pectoris; S01.01XA Laceration without foreign body of scalp, initial encounter; F03.90 Unspecified dementia, unspecified severity, without behavioral disturbance, psychotic disturbance, mood disturbance, and anxiety; D63.8 Anemia in other chronic diseases classified elsewhere; E78.5 Hyperlipidemia, unspecified; G89.29 Other chronic pain; N40.0 Benign prostatic hyperplasia without lower urinary tract symptoms; E11.22 Type 2 diabetes mellitus with diabetic chronic kidney disease; N18.9 Chronic kidney disease, unspecified; I50.9 Heart failure, unspecified; K59.00 Constipation, unspecified; I25.2 Old myocardial infarction; Z95.5 Presence of coronary angioplasty implant and graft; W18.30XA Fall on same level, unspecified, initial encounter; Y93.9 Activity, unspecified; Y92.098 Other place in other non-institutional residence as the place of occurrence of the external cause; Y99.9 Unspecified external cause status
CPT/HCPCS: 36415; 70450-TC; 72125-TC; 80053; 80061; 82728; 82962; 83036; 83540; 83550; 83735; 84100; 84443; 84466; 84484; 85025; 85610; 85730; 86850; 86900; 86901; 87635; 90715; 93005; 93010; 97116-GP; 97162-GP; 99291; J0131; J0248